=== PATIENT | male | born 1980 | race Caucasian/White ===

== ENCOUNTER → 2024-09-12 14:31 | Outpatient (BNVA) | payer OTHER, SELFPAY | PROVIDERS: PCP Family Medicine; Visit Provider Physician Assistant | DX: M54.12 Radiculopathy, cervical region (principal); R20.0 Anesthesia of skin | CPT/HCPCS: 99202 ==

== ENCOUNTER → 2024-09-12 14:31 | Outpatient (AMB) | payer OTHER, SELFPAY ==
[2024-09-12 14:45] VITALS: BMI 35.5
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
--- OUTSIDE RECORDS SUMMARY | 2024-09-12 16:46 | XMS_ITS | Encounter Summary ---
Author Name [facility] [place] [facility] [place] [facility] [place] Address [address] [place] [address] Care Team Providers Care Manager Change Name Role Phone ELLIE BRADSHAW Primary Care Provider Unavailabl e Insurance Providers: All historical and current Section Date Range: From patient's date of to the date document was created. This section includes the names of all active insurance providers for the patient. Insurance Provider Type of Coverage Plan Name Start of Policy Coverage End of Policy Coverage Group Number Member ID Insurance Provider's Telephone Number Policy Ewing's Name Patient's Relationship to Policy Ewing [facility] (MEDICAID) MEDICAID MEDIC AID Dec 30, 2012 MEDICAI D [id number] HARSHIL AL RISTOP PATIENT [facility] MEDICAID MEDICAID [place] Dec 30, 2012 MEDICAI D [id number] HARSH[place] PATIENT Selected Encounter This section includes the information on record at [place] for the Encounter. Date/Time Encounter Type Encounter Description Reason Provider Source Sep 11, 2024 01:42 PM CASE MANAGEMENT TELEPHONE POLYTRAUMA/TBI ICD-10-CM Z87.820 Personal history of traumatic brain injury SAM RENDON [place] Encounter Template Text not used by [place] Assessments - Encounter Diagnoses This section includes the primary and secondary diagnoses documented for the Encounter. Date/Time Primary/Secondary Diagnosis Diagnosis Name Provider Source Sep 11, 2024 01:42 PM PRIMARY Personal history of traumatic brain injury SAM RENDON [facility] Sep 11, 2024 01:42 PM SECONDARY Other specified counseling [facility] Plan of Treatment: Future Appointments (+ 6 months) and Future Tests (+/- 45 days) The Plan of Treatment section includes future care activities for the patient from all [place] [facility]. This section includes future appointments and future orders which are active, pending or scheduled. Future Appointments This section includes appointments that were scheduled to occur 6 months from the date of the Encounter, up to a maximum of 20 appointments. The data comes from all [facility]. Appointment Date/Time Appointment Type Appointme nt Facility Name Sep 12, 2024 02:30 PM [facility] Sep 13, 2024 10:00 AM AMBULATORY - REHAB MEDICIN [facility] [place] September 15, 2024 10:30 AM [facility] September 18, 2024 11:00 AM AMBULATORY - [facility] September 19, 2024 02:00 [facility] September 22, 2024 09:00 AM AMBULAT[facility] - [facility] September 25, 2024 09:00 AM AMBULATORY - REHAB [facility]ICIN [facility] October 02, 2024 09:00 AM AMBULATORY - [facility]IN [facility] October 10, 2024 10:00 AM AMBULATORY - [facility] October 11, 2024 01:00 PM AMBULATORY - PSYCHIATRY [facility] October 13, 2024 08:30 AM [facility]UL[facility] Oct 27, 2024 10:00 AM AMBULAT[facility] Active, Pending, and Scheduled Orders This section includes a listing of several types of active, pending, and scheduled orders, including clinic medications orders, diagnostic test orders, procedure orders and consult orders; where the start date of the order is 45 days before the date of the Encounter or 45 days after the date of theEncounter. The data comes from all [facility]. Test Date/Time Test Type Test Details Facility Name Jul 30, 2024 07:39 PM Consult Order TBI OPTOME TRY OUTPT Cons Stress Analyst's Choice [facility] [place] [facility] Aug 10, 2024 09:42 AM Consult Order COMMUNITY CARE-NEUROSURGERY Cons Stress Analyst's Choice [place] Aug 18, 2024 11:56 AM Consult Order COMMUNITY CARE-DENTAL GENERAL Cons Stress Analyst's Choice [place] [facility] Aug 18, 2024 11:56 AM Consult Order COMMUNITY CARE-DENTAL GENERAL Cons Stress Analyst's Choice [place] [facility] [place] [facility] Aug 18, 2024 11:56 AM Consult Order COMMUNITY CARE-DENTAL SPECIALTY Cons Stress Analyst's Choice [place] [facility] Aug 25, 2024 12:12 PM Consult Order TBI SPEECH OUTPT Cons Stress Analyst's Choice [place] [facility] [place] [facility] Aug 25, 2024 12:26 PM Consult Order COMMUNITY CARE-PAIN MANAGEMENT Cons Stress Analyst's Choice [place] [facility] Sep 05, 2024 04:22 PM Consult Order TBI OPTOME TRY OUTPT Cons Stress Analyst's Choice [place] [facility] Sep 12, 2024 09:54 AM Consult Order BIOFEEDBAC K FOR PAIN/[facility] (OUTPT) Cons [facility] Social History: Smoking Status (Most current) and Tobacco Use (All prior to encounter date) This section includes the most current, and the historical, smoking and tobacco- related health factors from the [place] facility where the Encounter took place. Current Smoking Status This section includes the most current smoking, or tobacco-related health factor, from the [place] facility where the Encounter took place. Date/Time Current Smoking Status Comment [facility] Jan 27, 2013 01:11 PM CURRENT SMOKER [place] [facility] Tobacco Use History This section includes a history of the smoking, or tobacco-related health factors, that were collected on or before the date of the Encounter. The data comes from the [place] facility where the Encounter took place. Date/Time Smoking Status/Tobac co Use Comment Facility Jan 27, 2013 01:11 PM V1-PT DECLINES REF TO TOBACCO CESS [facility] Jan 27, 2013 01:11 PM V1-PT DECLINES TOBACCO CESSATION [facility] Jan 27, 2013 01:11 PM V1-PT NOT INTERESTED IN QUIT TOBACCO USE [facility] Aug 24, 2011 03:03 PM V1-PT DECLINES REF TO TOBACCO CESS [facility] Aug 24, 2011 03:03 PM V1-PT DECLINES TOBACCO CESSATION MEDS [facility] Aug 24, 2011 03:03 PM V1-PT NOT INTERESTED IN QUIT TOBACCO USE [facility] May 19, 2011 02:05 PM CURRENT SMOKER pack a week [facility] May 05, 2011 10:41 AM CURRENT SMOKER once in a while [facility] Advance Directives: All historical and current Section Date Range: From patient's date of to the date document was created. This section includes ALL of a patient's completed or amended [place] Advance and Rescinded Directives. The entries below indicate that a directive exists for the patient, but an actual copy is not included with this document. The data comes from all [place] facilities. Date Advance Directives Provider Source Mar 09, 2013 ADVANCE DIRECTIVE DISCUSSION BETTE JACKMAN [facility] Encounter Notes: All associated encounter notes This section contains the clinical notes associated to the Encounter. Date/Time Encounter Note(s) Provider Source Sep 11, 2024 01:42 PM TBI NOTE: LOCAL TITLE: TBI/POLYTRAUMA SOCIAL WORK NOTE STANDARD TITLE: TBI NOTE DATE OF NOTE: SEP 11, 2024@13:42 ENTRY DATE: SEP 11, 2024@13:42:54 AUTHOR: SAM RENDONIGNER: URGENCY: STATUS: COMPLETED Communicating with in regards to community care neurosurgery consult. 's PCP placed a CC consult on 08/10/24 to [facility] Neurosurgery. There was some delay in getting scheduled due to [facility] requiring an MRI, which was provided (per consult). Beaver felt the delay to getting into [facility] for this appointment was taking too long, as he is living with daily pain, and reached out to [facility] to get a Neurosurgery appointment with them in the meantime (and for a second opinion ). was given an appointment, pending VA referral/authorization for 09/12/24 with [facility]. It was explained to this date that here is no Community Care Consult referral in for [facility], only [facility]. The [place] would not be able to cover an appointment for tomorrow, scheduled by independent of [place]. Beaver did speak to [facility] and they offered to book him for 09/25/24 for a neurosurgery consult. Beaver was encouraged to take this appointment and if he needed a second opinion, he could be referred to [facility]. was not happy about the [facility] not being able to cover his self-made appointment with [facility] tomorrow, but he did book the appointment with [facility]. also requesting referral for second opinion, and this will be placed when able to [facility]. /audrey/ KARI HIGUERA STAFF FLAP CURER Signed: 09/11/2024 15:01 SAM RENDON [place] [facility]
--- OUTSIDE RECORDS SUMMARY | 2024-09-12 16:46 | XMS_ITS | Encounter Summary ---
Author Name [facility] [place] [facility] [place] Address [address] [place] [address] Care Team Providers Care Water Conservation Specialist Name Role Phone ELLIE BRADSHAW Primary Care [...] Ewing's Name Patient's Relationship to Policy Ewing [facility] (MEDICAID) MEDICAID MEDIC AID Dec 30, 2012 MEDICAI D [id number] HARSHIL AL RISTOP PATIENT [facility] [place] [facility] ([place]) Dec 30, 2012 MEDICAI D [id number] HARSHIL AL RISTOP PATIENT Selected Encounter This section includes the information on record at [place] for the Encounter. Date/Time Encounter Type Encounter Description Reason Provider Source Aug 10, 2024 09:30 AM OFFICE O/P EST LOW 20 MIN PRIMARY CARE/MEDICINE ICD-10-CM M54.12 Radiculopathy, cervical region ISABEL BRADSHAW Encounter Template Text not used by [facility] Assessments - Encounter Diagnoses This section includes the primary and secondary diagnoses documented for the Encounter. Date/Time Primary/Secondary Diagnosis Diagnosis Name Provider Source Aug 10, 2024 09:58 AM PRIMARY Radiculopathy, cervical region ELLIE BRADSHAW Plan of Treatment: Future Appointments (+ 6 months) and Future Tests (+/- 45 days) The Plan of Treatment section includes future care activities for the patient from [facility] [place] [facility]. This section includes future appointments and future orders which are active, pending or scheduled. Future Appointments This section includes appointments that were scheduled to occur 6 months from the date of the Encounter, up to a maximum of 20 appointments. The data comes from all [facility] facilities. Appointment Date/Time Appointment Type Appointme nt Facility Name Aug 15, 2024 10:30 AM AMBULAT[facility] Aug 16, 2024 09:00 AM AMBULATORY - [facility]IC[facility] Aug 22, 2024 10:00 AM AMBULATORY [facility] MEDICINE [facility] Aug 25, 2024 11:00 AM AMBULATORY - REHAB MEDICIN E [facility] Sep 05, 2024 02:00 PM AMBULATORY - REHAB MEDICIN E [facility] Sep 06, 2024 11:00 AM AMBULATORY - [facility]HAB MEDICIN E [facility] Sep 12, 2024 02:30 PM AMBULATORY [facility]ICINE [facility] Sep 13, 2024 10:00 AM AMBULATORY - REH[place] MEDICIN E [place] September 15, 2024 10:30 AM AMBULATORY - NONE [facility] September 18, 2024 11:00 AM AMBULATORY - REHAB MEDICIN E [place] September 19, 2024 02:00 PM AMBULATORY [facility]INE [facility] September 22, 2024 09:00 AM AMBULATORY - REHAB MEDICIN E [place] September 25, 2024 09:00 AM AMBULATORY - REHAB MEDICIN E [place] October 02, 2024 09:00 AM AMBULATORY - REHAB MEDICIN [facility] October 10, 2024 10:00 AM AMBULATORY - REHAB MEDICIN [facility] October 11, 2024 01:00 PM AMBULATORY - PSYCHIATRY [facility] October 13, 2024 08:30 AM AMBULATORY - [facility]HAB MEDICIN E [facility] Oct 27, 2024 10:00 AM AMBULATORY - REHAB MEDICIN E [facility] Active, Pending, and Scheduled Orders This section includes a listing of several types of active, pending, and scheduled orders, including clinic medications orders, diagnostic test orders, procedure orders and consult orders; where the start date of the order is 45 days before the date of the Encounter or 45 days after the date of theEncounter. The data comes from all [place] treatment facilities. Test Date/Time Test Type Test Details Facility Name Jul 30, 2024 07:39 PM Consult Order TBI OPTOME TRY OUTPT Cons Housekeeping/Laundry Supervisor's Choice [place] [facility] Aug 10, 2024 09:42 AM Consult Order COMMUNITY CARE-NEUROSURGERY Cons Housekeeping/Laundry Supervisor's Choice [place] Aug 18, 2024 11:56 AM Consult Order COMMUNITY CARE-DENTAL GENERAL Cons Housekeeping/Laundry Supervisor's Choice [place] [facility] Aug 18, 2024 11:56 AM Consult Order COMMUNITY CARE-DENTAL GENERAL Cons Housekeeping/Laundry Supervisor's Choice [place] [facility] Aug 18, 2024 11:56 AM Consult Order COMMUNITY CARE-DENTAL SPECIALTY Cons Housekeeping/Laundry Supervisor's Choice [place] [facility] Aug 25, 2024 12:12 PM Consult Order TBI SPEECH OUTPT Cons Housekeeping/Laundry Supervisor's Choice [place] [facility] Aug 25, 2024 12:26 PM Consult Order COMMUNITY CARE-PAIN MANAGEMENT Cons Housekeeping/Laundry Supervisor's Choice [place] [facility] Sep 05, 2024 04:22 PM Consult Order TBI OPTOME TRY OUTPT Cons Housekeeping/Laundry Supervisor's Choice [place] [facility] Sep 12, 2024 09:54 AM Consult Order BIOFEEDBAC K FOR PAIN/[facility] (OUTPT) Cons Housekeeping/Laundry Supervisor's Choice [place] [facility] Lab Results: +/- 30 days of the encounter This section includes the Chemistry and Hematology Lab Results on record with [place] for the patient. Radiology Reports and Pathology Reports are provided separately, in subsequent sections. Lab Results This section contains the Chemistry/Hematology Results that were resulted 30 days before or 30 daysafter the date of the Encounter. Date/Time Source Result Type Result - Unit Interpretation Reference Range Specimen Type Comment Aug 02, 2024 10:15 AM [place] CALCIUM SERUM Specimen Type: SERUM No comment entered. Ordering Provider: ELLIE BRADSHAW Report Released Date/Time: Jun 26, 2024 10:28 AM Reporting Lab: [facility] [address] Performing Lab: [facility]ITALRMI[facility]ITALTRN [facility]PITALUSETS [address] [address] CALCIUM 9.5 mg/dL 8.5-10.2 Aug 02, 2024 10:15 AM [place] MICROALBUMIN CREATININE RATIO PANEL URINE Specimen Type: URINE No comment entered. Ordering Provider: ELLIE BRADSHAW Report Released Date/Time: Jun 26, 2024 10:28 AM Reporting Lab: [facility] [address] [address] Performing Lab: [facility] [address] [address] MICROALBUMIN/CREATININE RATIO 12.8 mg/g 0-29.9 MICROALBUMIN,QUANTITATIVE 0.5 mg/dL RR U NAVAIL CREATININE URINE 39.09 mg/dL Aug 02, 2024 10:15 AM [place] LIVER FUNCTION SERUM Specimen Type: SERUM No comment entered. Ordering Provider: ELLIE BRADSHAW Report Released Date/Time: Jun 26, 2024 10:28 AM Reporting Lab: [facility] [address] [address] Performing Lab: [facility] [address] [address] PROTEIN,TOTAL 7.8 g/dL 6.0-8.3 ALBUMIN 4.3 g/dL 3.5-5.0 ALKALINE PHOSPHATASE 91 U/L 40-150 AST 22 U/L 5-34 ALT 32 U/L BILIRUBIN, TOTAL 0.3 mg/dL 0.2-1.2 Aug 02, 2024 10:15 AM [place] LIPID PANEL FASTING SERUM Specimen Ty pe: SERUM No comment entered. Ordering Provider: ELLIE BRADSHAW Report Released Date/Time: Jun 26, 2024 10:28 AM Reporting Lab: [facility]ITALTRN [facility]USE[address] [address] Performing Lab: [facility] [address] [address] CHOLESTEROL 218 mg/dL H TRIGLYCERIDE 430 mg/dL H 0-150 LDL calculated Reflex to dLDL mg/dL 0-12 9 CHOL/HDL 6.4 HDL CHOLESTEROL 34 mg/dL L 40-60 LDL DIRECT 138 mg/dL H Aug 02, 2024 10:15 AM [place] URINALYSIS URINE S pecimen Type: URINE Comment: If Glucose = >500 and Ketones are positive, please alert the Physician. Ordering Provider: ELLIE BRADSHAW Report Released Date/Time: Jun 26, 2024 10:28 AM Reporting Lab: [address] [address] Performing Lab: [address] [address] UA COLOR Colorless Yellow UA APPEARANCE Clear Clear UA GLUCOSE Normal mg/dL Negative UA KETONES NEGATIVE mg/dL Negative UA BLOOD NEGATIVE mg/dL Negative UA PROTEIN NEGATIVE mg/dL Negative UA NITRITE NEGATIVE mg/dL Negative UA BILIRUBIN NEGATIVE mg/dL Negative UA SPECIFIC GRAVITY 1.009 L 1.016-1.022 UA pH 6.5 5.0-9.0 UA UROBILINOGEN Normal mg/dL <2.0 UA LEUKOCYTE NEGATIVE Negative Aug 02, 2024 10:15 AM [place] BASIC METABOLIC PANEL (fasting) SERUM Specimen Type: SERUM No comment entered. Ordering Provider: ELLIE BRADSHAW Report Released Date/Time: Jun 26, 2024 10:28 AM Reporting Lab: [address] [address] Performing Lab: [address] [address] UREA NITROGEN 14 mg/dL 7-25 GLUCOSE 98 mg/dL 65-100 SODIUM 137 mmol/L 135-145 POTASSIUM 4.6 mmol/L 3.5-5.0 CHLORIDE 103 mmol/L 100-110 CO2 26 meq/L 20-30 CALCIUM 9.5 mg/dL 8.5-10.2 CREATININE, Serum 0.82 mg/dL 0.50-1.40 eGFR(CKD-EPI 2020) >90 mL/min >60 Aug 02, 2024 10:15 AM [place] URIC ACID SERUM Sp ecimen Type: SERUM No comment entered. Ordering Provider: ELLIE BRADSHAW Report Released Date/Time: Jun 26, 2024 10:28 AM Reporting Lab: [facility]RC[facility]ITALUSE[facility] [address] [address] Performing Lab: [facility]RC[facility]ITALUSE[facility] [address] [address] URIC ACID 6.1 mg/dL 3.5-7.2 Aug 02, 2024 10:15 AM [place] VITAMIN D (25-OH) SERUM Specimen Type: SERUM No comment entered. Ordering Provider: ELLIE BRADSHAW Report Released Date/Time: Jun 26, 2024 10:28 AM Reporting Lab: [facility]ITALUSE[facility] [address] [address] Performing Lab: [facility] [address] [address] VITAMIN D (25-OH) 19 ng/mL L 20-50 Aug 02, 2024 10:15 AM [place] TSH SERUM Sp ecimen Type: SERUM No comment entered. Ordering Provider: ELLIE BRADSHAW Report Released Date/Time: Jun 26, 2024 10:28 AM Reporting Lab: [facility]ITALUSE[facility] [address] [address] Performing Lab: [facility]ITALUSE[address] [address] TSH 1.56 u[IU]/mL 0.35-5.00 Aug 02, 2024 10:15 AM [place] HEMOGLOBIN A1C PANEL BLOOD Specimen T ype: BLOOD Comment: Values obtained from A1C measurements can vary. For atypical A1C assays, a reported value of 7.0 could actually be between 6.72 and 7.28 if measured by a reference method. A reported value of 9.0 could actually be between 8.73 and 9.27. Ref: http://www.ngsp.org/CAPdata.asp Ordering Provider: ELLIE BRADSHAW Report Released Date/Time: Jun 26, 2024 10:28 AM Reporting Lab: [facility] [address] [address] Performing Lab: [address] [address] HEMOGLOBIN A1C 5.3 4.0-5.6 Aug 02, 2024 10:15 AM [place] PSA SERUM Sp ecimen Type: SERUM No comment entered. Ordering Provider: ELLIE BRADSHAW Report Released Date/Time: Jun 26, 2024 10:28 AM Reporting Lab: [facility] [address] [address] Performing Lab: [address] [address] PSA 0.29 ng/mL 0.00-4.00 Aug 02, 2024 10:15 AM [place] CBC AND DIFF (AUTO) BLOOD Specimen Ty pe: BLOOD No comment entered. Ordering Provider: ELLIE BRADSHAW Report Released Date/Time: Jun 26, 2024 10:28 AM Reporting Lab: [facility] [address] [address] Performing Lab: [address] [address] WBC 8.80 10*3/uL 4.50-11.00 RBC 5.88 10*6/uL H 4.23-5.66 HGB 16.3 g/dL 12.8-17 HCT 48.8 39.2-50.4 MCV 83.0 fL 82-99 MCHC 33.4 g/dL 30.8-35.1 PLT 296 10*3/uL 140-360 RDW-CV 13.2 12.0-16.0 MONO, ABS 0.67 10*3/uL 0.30-1.10 MCH 27.7 pg 26.2-32.6 NEUT % 67.5 43.7-75.8 LYMPH % 19.8 14.0-42.3 MONO % 7.6 5.1-13.7 EOS % 4.2 0.4-6.8 BASO % 0.7 0.1-2.0 NEUT, ABS 5.94 10*3/uL 2.20-7.60 LYMPH, ABS 1.74 10*3/uL 1.00-3.20 EOS, ABS 0.37 10*3/uL 0.03-0.44 BASO, ABS 0.06 10*3/uL 0.01-0.13 IMMATURE GRAN % 0.2 0.0-0.7 IMMATURE GRAN, ABS 0.02 10*3/uL 0.00-0.0 6 NRBC % 0.0 0.0-0.0 NRBC, ABS 0.00 10*3/uL 0.00-0.00 Vital Signs: All taken on the encounter date This section contains inpatient and outpatient Vital Signs collected on the date of the Encounter. Date/Time Temperature Pulse Blood Pressure Respiratory Rate SP02 Pain Height Weight Body Mass Index Source Aug 10, 2024 09:38 AM 96.1 66 126/87 20 98 0 71 270 38 [facility] Social History: Smoking Status (Most current) and Tobacco Use (All prior to encounter date) This section includes the most current, and the historical, smoking and tobacco- related health factors from the [place] facility where the Encounter took place. Current Smoking Status This section includes the most current smoking, or tobacco-related health factor, from the [place] facility where the Encounter took place. Date/Time Current Smoking Status Comment Facil ity Jun 26, 2024 10:00 AM VA-TOBACCO USE FORMER CIGARETTES [place] Tobacco Use History This section includes a history of the smoking, or tobacco-related health factors, that were collected on or before the date of the Encounter. The data comes from the [place] facility where the Encounter took place. Date/Time Smoking Status/Tobacco Use Comment F acility Jun 26, 2024 10:00 AM VA-TOBACCO USE FOR DEBRA CIGARETTES [place] May 26, 2022 11:30 AM VA-TOBACCO FORMER USER [place] May 26, 2022 11:30 AM VA-TOBACCO QUIT 5 TO < 15 YRS [place] Apr 29, 2021 11:30 AM VA-TOBACCO FORMER USER [place] Apr 29, 2021 11:30 AM VA-TOBACCO QUIT 1 TO < 5 YRS [place] Apr 09, 2020 09:00 AM VA-TOBACCO FORMER USER [place] Apr 09, 2020 09:00 AM VA-TOBACCO QUIT < 1 YEAR [place] Jan 10, 2020 09:30 AM VA-TOBACCO FORMER USER [place] Jan 10, 2020 09:30 AM VA-TOBACCO QUIT < 1 YEAR [place] Aug 08, 2018 01:45 PM VA-TOBACCO USE > 1 5 LESS THAN 30 YEARS [place] Aug 08, 2018 01:45 PM VA-TOBACCO USE ADVICE [place] Aug 08, 2018 01:45 PM VA-TOBACCO USE PREPARER SAMPLES AND REPAIRS NO [place] Aug 08, 2018 01:45 PM VA-TOBACCO USE MED YES [place] Aug 08, 2018 01:45 PM VA-TOBACCO USE WI 30 MIN OF WAKEUP [place] Aug 08, 2018 01:45 PM VA-TOBACCO USER EVERY DAY [place] Aug 06, 2017 01:54 PM CURRENT SMOKER 4 day [place] Aug 06, 2017 01:54 PM V1-PT NOT INTEREST ED IN QUIT TOBACCO USE [place] Nov 12, 2016 02:08 PM CURRENT SMOKER cutting back his decreasing on his own [place] Nov 12, 2016 02:08 PM V1-PT NOT INTEREST ED IN QUIT TOBACCO USE [place] May 08, 2016 05:15 PM CURRENT SMOKER is cutting back . Interested in tobacco cessation next visit. [place] Jun 04, 2015 10:22 AM QUIT TOBACCO USE 1 -7 YEARS AGO stopped one month ago [place] May 13, 2015 08:27 AM V1-PT DECLINES REF TO TOBACCO CESS PRGM [place] May 13, 2015 08:27 AM V1-PT THINKING ABO UT QUIT TOBACCO USE [place] Advance Directives: All historical and current Section Date Range: From patient's date of to the date document was created. This section includes ALL of a patient's completed or amended [place] Advance and Rescinded Directives. The entries below indicate that a directive exists for the patient, but an actual copy is not included with this document. The data comes from all [place] facilities. Date Advance Directives Provider Source Mar 09, 2013 ADVANCE DIRECTIVE DISCUSSION BETTE JACKMAN [place] [facility] Radiology Reports: +/- 30 days of the encounter Radiology Reports For cases when an order for radiology services may have been completed prior to the date of the Encounter, the report list includes the Radiology Reports that were completed up to 30 days before dateof the Encounter. For cases when an order for radiology services may have been completed after the date of the Encounter, the report list also includes the Radiology Reports that were completed up to30 days after date of the Encounter. The data comes from all [place] treatment facilities. Date/Time Radiology Report Provider Source Aug 02, 2024 08:00 AM OUTSIDE MRI CERVIC AL SPINE WO CONTRAST: [place] AL [id number] -[id number] M Exm Date: AUG 02, 2024@08:00 Req Phys: ELLIE BRADSHAW Loc: SPR PACT 3 PA WH (Req'g Loc) Img Loc: OUTSIDE GENERAL RADIOLOGY Service: Unknown (Case [id number] COMPLETE) OUTSIDE MRI CERVICAL SPINE WO CON(RAD Detailed) CPT:51464 Reason for Study: mro c spine Clinical History: paresthesias and motor weakness left U-Ext Report Status: Electronically Filed Date Reported: AUG 02, 2024 Report: THIS EXAM WAS PERFORMED AND INTERPRETED AT AN OUTSIDE HOSPITAL Impression: THIS EXAM WAS PERFORMED AND INTERPRETED AT AN OUTSIDE HOSPITAL Primary Diagnostic Code: VERIFIED BY: / *ELECTRONICALLY FILED* [facility] Encounter Notes: All associated encounter notes This section contains the clinical notes associated to the Encounter. Date/Time Encounter Note(s) Provider Source Aug 10, 2024 09:40 AM PREVENTIVE MEDICIN E NURSING NOTE: LOCAL TITLE: CLINICAL REMINDERS/NURSING STANDARD TITLE: PREVENTIVE MEDICINE NURSING NOTE DATE OF NOTE: AUG 10, 2024@09:40 ENTRY DATE: AUG 10, 2024@09:40:45 AUTHOR: DAVID FARIA COSIGNER: URGENCY: STATUS: COMPLETED Home Telehealth (CCHT) Referral: Patient declines participation in CCHT Program at this time. Influenza Immunization: Deferral / Refusal The patient declines to receive the recommended dose of seasonal influenza vaccine. Immunization: INFLUENZA, UNSPECIFIED FORMULATION Refusal Reason: PATIENT DECISION Patient refuses all immunization(s) in the FLU group Date Documented: 08/10/24 09:40 Td/Tdap Immunization: The patient declines to receive the recommended dose of Td/Tdap vaccine. Immunization: TD(ADULT) UNSPECIFIED FORMULATION Refusal Reason: PATIENT DECISION Patient refuses all immunization(s) in the Td group Date Documented: 08/10/24 09:41 RHS Screen: RHS Screen Session Format: Face to Face Environmental Check Screening was not completed at this time due to: Another adult present /es/ DAVID FARIA LPN LPN Signed: 08/10/2024 09:41 DAVID FARIA [place] Aug 10, 2024 09:36 AM PHYSICIAN ASSISTAN T NOTE: LOCAL TITLE: PA NOTE STANDARD TITLE: PHYSICIAN CHILD AND YOUTH PROGRAM ASSISTANT NOTE DATE OF NOTE: AUG 10, 2024@09:36 ENTRY DATE: AUG 10, 2024@09:36:41 AUTHOR: BRADSHAW,ELLIE EXP COSIGNER: URGENCY: STATUS: COMPLETED S - here to review mri c-spine done rayus aug 08 O - RADS: reviewed w/ pt A/P - Multi-Level Discopathy and Spondylosis - CON: Neuro Surg RTC AUG 09 - labs before Medication Reconciliation: Outpatient: Has the patient been taking medications as documented in the EMLR? YES: The patient has been taking medications as documented in the EMLR. Essential Medication List for Review used to complete this medication reconciliation. INCLUDED IN THIS LIST: Alphabetical list of active outpatient prescriptions dispensed from this [place] (local) and dispensed from another [place] or DoD facility (remote) as well as inpatient orders (local, pending and active), local clinic medications, locally documented non-VA medications, and local prescriptions that have or been discontinued in the past 90 days. - All changes in medications, including all non-VA/Herbal/OTC medications were entered into CPRS. Changes: nt - If there were any medications the patient should no longer take, they were discontinued. - The patient/caregiver was instructed to update this list, discard old lists, and take this list to the next appointment, whether with a VA or non-VA provider. /audrey/ ELLIE BRADSHAW PA-C STAFF PHYSICIAN CHILD AND YOUTH PROGRAM ASSISTANT Signed: 08/10/2024 09:58 ELLIE BRADSHAW
--- OUTSIDE RECORDS SUMMARY | 2024-09-12 16:46 | XMS_ITS | Encounter Summary ---
Author Name [facility] [place] Organization [facility] [place] [place] Address [address] [place] [address] Care Team Providers Care Roving Or Yarn Color Checker Name Role Phone ELLIE BRADSHAW Primary Care [...] Ewing's Name Patient's Relationship to Policy Ewing [facility] (MEDICAID) MEDICAID MEDIC AID Dec 30, 2012 MEDICAI D [id number] HARSHIL AL RISTOP PATIENT [facility] MEDICAID MEDICAID [place] ([place]) Dec 30, 2012 MEDICAI D [id number] HARSHIL AL RISTOP PATIENT Selected Encounter This section includes the information on record at [place] for the Encounter. Date/Time Encounter Type Encounter Description Reason Provider Source Aug 16, 2024 09:00 AM OFFICE O/P EST HI 40 MIN PM&RS PHYSICIAN ICD-10-CM M79.18 Myalgia, other site HARISH ALFONSO [facility] Encounter Template Text not used by [place] Assessments - Encounter Diagnoses This section includes the primary and secondary diagnoses documented for the Encounter. Date/Time Primary/Secondary Diagnosis Diagnosis Name Provider Source Aug 16, 2024 10:27 AM PRIMARY Myalgia, other site HARISH ALFONSO [place] [facility] [facility] Aug 16, 2024 10:27 AM SECONDARY Cervicalgia HARISH ALFONSO [facility] [facility] Aug 16, 2024 10:27 AM SECONDARY Headache, unspecified HARISH ALFONSO [facility] [facility] Plan of Treatment: Future Appointments (+ 6 months) and Future Tests (+/- 45 days) The Plan of Treatment section includes future care activities for the patient from all [place] [facility]. This section includes future appointments and future orders which are active, pending or scheduled. Future Appointments This section includes appointments that were scheduled to occur 6 months from the date of the Encounter, up to a maximum of 20 appointments. The data comes from all [place] treatment facilities. Appointment Date/Time Appointment Type Appointme nt Facility Name Aug 22, 2024 10:00 AM AMBULATORY - MEDICINE [facility] [place] [facility] Aug 25, 2024 11:00 AM AMBULATORY - REHAB MEDICIN E [facility] [place] [facility] Sep 05, 2024 02:00 PM AMBULATORY - REHAB MEDICIN E [facility] [place] [facility] Sep 06, 2024 11:00 AM AMBULATORY - REHAB MEDICIN E [facility] [place] [facility] Sep 12, 2024 02:30 PM AMBULATORY - MEDICINE [facility] [place] [facility] Sep 13, 2024 10:00 AM AMBULATORY - REHAB MEDICIN E [place] September 15, 2024 10:30 AM AMBULATORY - NONE [facility] [place] [facility] September 18, 2024 11:00 AM AMBULATORY - REHAB MEDICIN E [place] September 19, 2024 02:00 PM AMBULATORY - MEDICINE [facility] [place] [facility] September 22, 2024 09:00 AM AMBULATORY - REHAB MEDICIN E [place] September 25, 2024 09:00 AM AMBULATORY - REHAB MEDICIN E [place] October 02, 2024 09:00 AM AMBULATORY - REHAB MEDICIN E [place] October 10, 2024 10:00 AM AMBULATORY - REHAB MEDICIN E [place] October 11, 2024 01:00 PM AMBULATORY - PSYCHIATRY [facility] October 13, 2024 08:30 AM AMBULATORY - REHAB MEDICIN E [facility] [place] [facility] Oct 27, 2024 10:00 AM AMBULATORY - REHAB MEDICIN E [facility] [place] [facility] Active, Pending, and Scheduled Orders This section includes a listing of several types of active, pending, and scheduled orders, including clinic medications orders, diagnostic test orders, procedure orders and consult orders; where the start date of the order is 45 days before the date of the Encounter or 45 days after the date of theEncounter. The data comes from all [place] treatment facilities. Test Date/Time Test Type Test Details Facility Name Jul 30, 2024 07:39 PM Consult Order TBI OPTOME TRY OUTPT Cons Laborer [facility] [place] [facility] [place] [facility] Aug 10, 2024 09:42 AM Consult Order COMMUNITY CARE-NEUROSURGERY Cons Laborer [facility] [place] Aug 18, 2024 11:56 AM Consult Order COMMUNITY CARE-DENTAL GENERAL Cons Laborer [facility] [facility] [place] [facility] [place] [facility] Aug 18, 2024 11:56 AM Consult Order COMMUNITY CARE-DENTAL GENERAL Cons Laborer [facility] [place] [facility] Aug 18, 2024 11:56 AM Consult Order COMMUNITY CARE-DENTAL SPECIALTY Cons Laborer [facility] [facility] [place] [facility] [place] [facility] Aug 25, 2024 12:12 PM Consult Order TBI SPEECH OUTPT Cons Laborer [facility] [facility] [facility] Aug 25, 2024 12:26 PM Consult Order COMMUNITY CARE-PAIN MANAGEMENT Cons Laborer [facility] [facility] Sep 05, 2024 04:22 PM Consult Order TBI OPTOME TRY OUTPT Cons Laborer [facility] [facility] Sep 12, 2024 09:54 AM Consult Order BIOFEEDBAC K FOR PAIN/NHM (OUTPT) Cons Laborer [employer] [facility] [facility] [place] [facility] [place] [facility] Lab Results: +/- 30 days of the encounter This section includes the Chemistry and Hematology Lab Results on record with [place] for the patient. Radiology Reports and Pathology Reports are provided separately, in subsequent sections. Lab Results This section contains the Chemistry/Hematology Results that were resulted 30 days before or 30 daysafter the date of the Encounter. Date/Time Source Result Type Result - Unit Interpretation Reference Range Specimen Type Comment Aug 02, 2024 10:15 AM [place] CALCIUM SERUM Specimen Type: SERUM No comment entered. Ordering Provider: ELLIE BRADSHAW Report Released Date/Time: Jun 26, 2024 10:28 AM Reporting Lab: [facility]TRN [facility] [address] [address] Performing Lab: [facility]ITALRMOBILE INFIRMARY [facility]ICAL CENTERN [facility]DRENUSEH[facility] [address] [address] CALCIUM 9.5 mg/dL 8.5-10.2 Aug 02, 2024 10:15 AM [place] MICROALBUMIN CREATININE RATIO PANEL URINE Specimen Type: URINE No comment entered. Ordering Provider: ELLIE BRADSHAW Report Released Date/Time: Jun 26, 2024 10:28 AM Reporting Lab: [facility]ITALRMOBILE INFIRMARY MEDICAL CENTERN [facility]ILDRENUSEH[facility] [address] [address] Performing Lab: [facility] [address] [address] MICROALBUMIN/CREATININE RATIO 12.8 mg/g 0-29.9 MICROALBUMIN,QUANTITATIVE 0.5 mg/dL RR U NAVAIL CREATININE URINE 39.09 mg/dL Aug 02, 2024 10:15 AM [place] LIPID PANEL FASTING SERUM Specimen Ty pe: SERUM No comment entered. Ordering Provider: ELLIE BRADSHAW Report Released Date/Time: Jun 26, 2024 10:28 AM Reporting Lab: [place] CNTRMARY [facility]ENTERTRN [facility]ILDRENUSETS [facility] [address] [address] Performing Lab: [place] CN[facility]L TRN [facility]ILDRENUSETS [facility] [address] [address] CHOLESTEROL 218 mg/dL H TRIGLYCERIDE 430 mg/dL H 0-150 LDL calculated Reflex to dLDL mg/dL 0-12 9 CHOL/HDL 6.4 HDL CHOLESTEROL 34 mg/dL L 40-60 LDL DIRECT 138 mg/dL H Aug 02, 2024 10:15 AM [place] LIVER FUNCTION SERUM Specimen Type: SERUM No comment entered. Ordering Provider: ELLIE BRADSHAW Report Released Date/Time: Jun 26, 2024 10:28 AM Reporting Lab: [facility]ITALRMARY [facility]ENTERTRN [facility]ILDRENUSE[address] [address] Performing Lab: [place] CNTRMARY [facility] CENTERTR[address] [address] PROTEIN,TOTAL 7.8 g/dL 6.0-8.3 ALBUMIN 4.3 g/dL 3.5-5.0 ALKALINE PHOSPHATASE 91 U/L 40-150 AST 22 U/L 5-34 ALT 32 U/L BILIRUBIN, TOTAL 0.3 mg/dL 0.2-1.2 Aug 02, 2024 10:15 AM [place] URINALYSIS URINE S pecimen Type: URINE Comment: If Glucose = >500 and Ketones are positive, please alert the Physician. Ordering Provider: ELLIE BRADSHAW Report Released Date/Time: Jun 26, 2024 10:28 AM Reporting Lab: [address] [address] Performing Lab: [address] [address] UA COLOR Colorless Yellow UA APPEARANCE Clear Clear UA GLUCOSE Normal mg/dL Negative UA KETONES NEGATIVE mg/dL Negative UA BLOOD NEGATIVE mg/dL Negative UA PROTEIN NEGATIVE mg/dL Negative UA NITRITE NEGATIVE mg/dL Negative UA BILIRUBIN NEGATIVE mg/dL Negative UA SPECIFIC GRAVITY 1.009 L 1.016-1.022 UA pH 6.5 5.0-9.0 UA UROBILINOGEN Normal mg/dL <2.0 UA LEUKOCYTE NEGATIVE Negative Aug 02, 2024 10:15 AM [place] BASIC METABOLIC PANEL (fasting) SERUM Specimen Type: SERUM No comment entered. Ordering Provider: ELLIE BRADSHAW Report Released Date/Time: Jun 26, 2024 10:28 AM Reporting Lab: [address] [address] Performing Lab: [address] [address] UREA NITROGEN 14 mg/dL 7-25 GLUCOSE 98 mg/dL 65-100 SODIUM 137 mmol/L 135-145 POTASSIUM 4.6 mmol/L 3.5-5.0 CHLORIDE 103 mmol/L 100-110 CO2 26 meq/L 20-30 CALCIUM 9.5 mg/dL 8.5-10.2 CREATININE, Serum 0.82 mg/dL 0.50-1.40 eGFR(CKD-EPI 2020) >90 mL/min >60 Aug 02, 2024 10:15 AM [place] URIC ACID SERUM Sp ecimen Type: SERUM No comment entered. Ordering Provider: ELLIE BRADSHAW Report Released Date/Time: Jun 26, 2024 10:28 AM Reporting Lab: [facility]ITALR WSTRN [facility] CHILDRENUSEHEN[facility] [address] [address] Performing Lab: [facility]OSPITALRMARY [facility]ENTERTRN [facility]ILDRENUSE[address] [address] URIC ACID 6.1 mg/dL 3.5-7.2 Aug 02, 2024 10:15 AM [place] VITAMIN D (25-OH) SERUM Specimen Type: SERUM No comment entered. Ordering Provider: ELLIE BRADSHAW Report Released Date/Time: Jun 26, 2024 10:28 AM Reporting Lab: [facility]ITALRMARY [facility]ENTERTRN [facility]ILDRENUSE[address] [address] Performing Lab: [facility] CHILDRENUSE[address] [address] VITAMIN D (25-OH) 19 ng/mL L 20-50 Aug 02, 2024 10:15 AM [place] HEMOGLOBIN A1C PANEL BLOOD Specimen T ype: [...] Jun 26, 2024 10:28 AM Reporting Lab: [facility]ITALRMARY [facility]ENTERTRN [place] [address] [address] Performing Lab: [facility]OSPITALRMOBILE INFIRMARY MEDICAL CENTERN [facility] CHILDRENUSE[address] [address] HEMOGLOBIN A1C 5.3 4.0-5.6 Aug 02, 2024 10:15 AM [place] TSH SERUM Sp ecimen Type: SERUM No comment entered. Ordering Provider: ELLIE BRADSHAW Report Released Date/Time: Jun 26, 2024 10:28 AM Reporting Lab: [facility]PITALRMARY [facility] CENTERTRN [facility]ILDRENUSE[address] [address] Performing Lab: [facility] [address] [address] TSH 1.56 u[IU]/mL 0.35-5.00 Aug 02, 2024 10:15 AM [place] PSA SERUM Sp ecimen Type: SERUM No comment entered. Ordering Provider: ELLIE BRADSHAW Report Released Date/Time: Jun 26, 2024 10:28 AM Reporting Lab: [facility] [address] [address] Performing Lab: [facility] [address] [address] PSA 0.29 ng/mL 0.00-4.00 Aug 02, 2024 10:15 AM [place] CBC AND DIFF (AUTO) BLOOD Specimen Ty pe: BLOOD No comment entered. Ordering Provider: ELLIE BRADSHAW Report Released Date/Time: Jun 26, 2024 10:28 AM Reporting Lab: [facility] [address] [address] Performing Lab: [facility] [address] [address] WBC 8.80 10*3/uL 4.50-11.00 RBC 5.88 10*6/uL [...] Height Weight Body Mass Index Source Aug 16, 2024 08:38 AM 98.3 78 142/87 16 97 8 [facility] Social History: Smoking Status (Most current) and Tobacco Use (All prior to encounter date) This section includes the most current, and the historical, smoking and tobacco- related health factors from the [place] facility where the Encounter took place. Current Smoking Status This section includes the most current smoking, or tobacco-related health factor, from the [place] facility where the Encounter took place. Date/Time Current Smoking Status Comment [facility] it Jan 27, 2013 01:11 PM [facility] Tobacco Use History This section includes a history of the smoking, or tobacco-related health factors, that were collected on or before the date of the Encounter. The data comes from the [place] facility where the Encounter took place. Date/Time Smoking Status/Tobac co Use Comment Facility Jan 27, 2013 01:11 PM V1-PT DECLINES REF TO TOBACCO CESS [facility] Jan 27, 2013 01:11 PM V1-PT DECLINES TOBACCO CESSATION MEDS [facility]RM[facility]TRN [facility] Jan 27, 2013 01:11 PM V1-PT NOT INTERESTED IN QUIT TOBACCO USE [facility] Aug 24, 2011 03:03 PM V1-PT DECLINES REF [facility]BACCO [facility] W[facility]ENUSEH[facility] Aug 24, 2011 03:03 PM V1-PT DECLINES TOBACCO CESSATION [facility] Aug 24, 2011 03:03 PM V1-PT NOT INTERESTED IN QUIT TOBACCO USE [facility] May 19, 2011 02:05 PM CURRENT SMOKER pack a week [facility] May 05, 2011 10:41 AM CURRENT SMOKER once in a while [facility] Advance Directives: All historical and current Section Date Range: From patient's date of to the date document was created. This section includes ALL of a patient's completed or amended [place] Advance and Rescinded Directives. The entries below indicate that a directive exists for the patient, but an actual copy is not included with this document. The data comes from all [place] facilities. Date Advance Directives Provider Source Mar 09, 2013 ADVANCE DIRECTIVE DISCUSSION AUGUSTINABTETE [facility] Radiology Reports: +/- 30 days of [...] the Encounter. The data comes from all [place] treatment facilities. Date/Time Radiology Report Provider Source Aug 02, 2024 08:00 AM OUTSIDE MRI CERVIC AL SPINE WO CONTRAST: SHIRIN AL [id number] -[id number] M Exm Date: AUG 02, 2024@08:00 Req Phys: ELLIE BRADSHAW Loc: SPR PACT 3 PA WH (Req'g Loc) Img Loc: OUTSIDE GENERAL RADIOLOGY Service: Unknown (Case [id number] COMPLETE) OUTSIDE MRI CERVICAL SPINE WO CON(RAD Detailed) CPT:24392 Reason for Study: mro c spine Clinical History: paresthesias and motor weakness left U-Ext Report Status: Electronically Filed Date Reported: AUG 02, 2024 Report: THIS EXAM WAS PERFORMED AND INTERPRETED AT AN OUTSIDE HOSPITAL Impression: THIS EXAM WAS PERFORMED AND INTERPRETED AT AN OUTSIDE HOSPITAL Primary Diagnostic Code: VERIFIED BY: / *ELECTRONICALLY FILED* [facility] Encounter Notes: All associated encounter notes This section contains the clinical notes associated to the Encounter. Date/Time Encounter Note(s) Provider Source Aug 16, 2024 09:11 AM POLYTRAUMA NOTE: LOCAL TITLE: TBI/POLYTRAUMA PM&R NOTE STANDARD TITLE: POLYTRAUMA NOTE DATE OF NOTE: AUG 16, 2024@09:11 ENTRY DATE: AUG 16, 2024@09:11:52 AUTHOR: HARISH ALFONSO EXP COSIGNER: URGENCY: STATUS: COMPLETED PROCEDURE NOTE PROCEDURE: Trigger point injections. INDICATION: Myofascial neck/upper back pain. HISTORY: Patient presents with ongoing right-sided neck pain, reporting no change in symptoms since last evaluated yesterday. He endorses ongoing numbness over the right lateral arm as well as thumb and index fingers. Symptoms are burning, shooting with radiation down the lateral arm to the elbow. Also reports signficant headache due to pain. Denies any new symptoms. He increased gabapentin to 300mg tid yesterday and hasn't noticed a difference yet. Denies side effects. EXAM: Vitals in chart. Awake, alert, in mild to moderate discomfort. Very anxious. Negative Spurling's b/l. Decent range of motion of the cervical spine with slight restrictions in rotation bilaterally as well as more significant restriction in left sidebending secondary to increased muscle tightness in the neck. Right cervical paraspinal muscles including splenius capitis and the levator scapulae as well as upper trapezius are significantly tight with increased hypertonicity and multiple trigger points throughout the muscles. Trigger points elicit burning sensation with increased numbness in the right upper extremity. Manual muscle testing revealed 4+/5 strength of the right shoulder abduction and elbow flexion secondary to guarding due to pain, otherwise 5/5 strength of bilateral upper extremities. Sensations decreased light touch over the right lateral elbow and thumb, otherwise intact to light touch in the right upper extremity. Positive Tinel's at the wrist on the right. Gait is nonantalgic, not spastic. INFORMED CONSENT: Obtained verbally, and through IMED. TIME OUT NOTE TIME:Aug@08:42 correctly stated: [X]Full name: SHIRIN AL [X]Last of #: [id number] [X]: Feb PROVIDER NAME: Harish Alfonso DO STAFF NAME: Olga Villegas PROCEDURE: Trigger point injections LOCATION: As below noted The areas of trigger points (focal taught mobile bands of muscles that are hyperirritable on palpation) were identified and injected after cleansed with alcohol. A 25G 1.5 needle was used to deliver 1mL of a solution containing 1% lidocaine and 0.5% bupivacaine in 1:1 ratio into the trigger points (locations as below), followed by dry needling locally. The needle was withdrawn and light compression was applied with a 2x2 gauze until bleeding stopped. Band-aid applied. Site 1 MUSCLES INJECTED: levator scapulae SIDE: Right # OF SITES: 1 Site 2: MUSCLES INJECTED: splenius capitis SIDE: Right # OF SITES: 2 Site 3: MUSCLES INJECTED: upper trapezius SIDE: Right # OF SITES: 1 Total lidocaine: 20mg Lot#: [id number] Exp: 12/10 Total bupivacaine: 10mg Lot #: [id number] Exp: 10/2024 No complications. Scant blood loss. The patient tolerated the procedure well without any immediate adverse side effects. Patient was instructed on the use of ice prn, gentle stretching and increased fluid intake to improve hydration. The patient was discharged home with instructions to monitor for any adverse reactions/side effects, and to contact me with any issues. Pre-procedure pain level: 8/10 Post-procedure pain level: improved but still sore ASSESSMENT: acute neck/upper back pain due to muscle sprain/strain, r/o radiculopathy if not improved with today's interventions. Also has right CTS and migraine headaches, with history of mTBIs, anxiety, and other contributing factors. PLAN: - Con't gabapentin 300mg tid. Will increase further pending efficacy. - Trial baclofen 10mg tid prn. Stop cyclobenzaprine. - Trial lidocaine patch (patient has at home) - Con't ice alternating with heat, but use only ice prn the rest of today. - Can consider TENS or theragun (gently) to the areas of muscle tightness. Follow-up in 1 week. MDM: 40 min Medication Reconciliation: Outpatient: Has the patient been taking medications as documented in the EMLR? YES: The patient has been taking medications as documented in the EMLR. Essential Medication List for Review used to complete this medication reconciliation. INCLUDED IN THIS LIST: Alphabetical list of active outpatient prescriptions dispensed from this [facility] (local) and dispensed from another [place] or [facility] facility (remote) as well as inpatient orders (local, pending and active), local clinic medications, locally documented non-VA medications, and local prescriptions that have or been discontinued in the past 90 days. - All changes in medications, including all non-VA/Herbal/OTC medications were entered into CPRS. - If there were any medications the patient should no longer take, they were discontinued. - The patient/caregiver was instructed to update this list, discard old lists, and take this list to the next appointment, whether with a VA or non-VA provider. /audrey/ HARISH ALFONSO DO TECHNICAL INSPECTOR Signed: 08/16/2024 10:29 HARISH ALFONSO CN[facility]L [facility]
--- OUTSIDE RECORDS SUMMARY | 2024-09-12 16:47 | XMS_ITS | Encounter Summary ---
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 continue to improve further with supportive care. 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 He also has clinical left carpal tunnel syndrome. ORDERS: - Start cyclobenzaprine 10mg qHS prn. - Start gabapentin, titrate up to 30mg bid as prescribed. - Routine Optometry evaluation and tx first, then TBI Optometry evaluation to r/o residual issues of mTBIs. - CERTIFIED LEGAL SECRETARY SPECIALIST eval and tx. - Vestibular PT evaluate and tx. - Ordered left wrist splint for CTS. - Minimize social media. - Counseling provided on strategies such as mindfulness and more therapeutic activities. Work on improving relationships with support network. Minimize distractions and large crowds/loud environments at this time until he recovers further. - He has an upcoming appointment with for meds eval on 10/11/24. - [facility]. ADDITIONAL INTERVENTION (later) - Audiology to eval worsened tinnitus. MH exacerbation might be contributing to some degree. - May consider neuropsychological evaluation to rule out residuals of mTBIs if residual symptoms warrant further evaluation. - NCS/EMG of the left arm/wrist to r/o carpal tunnel syndrome and to evaluate severity. - OT for CTS, if needed. Consider cortisone injection after if EMG shows CTS and symptoms do not improve with OT and wrist splint. EDUCATION - Role of provider and purpose of evaluation discussed with vet at the beginning of the appt. - I provided education on the typical mTBI recovery course, as well as my differential diagnosis as above. Bijalt was educated on the typically excellent prognosis of mTBIs. Most symptoms typically resolve within 3 months, but can take up to 6-12 months depending on comorbidities. - Focus on addressing HTN, which can contribute to headaches. - Focus on spending more quality 1:1 time with family/friends in a quiet environment. Stay off social media and the phone - for mental health wellbeing. - Discussed the importance of mental health care in addressing behavioral health conditions which are contributing to Pipo's symptoms. Discussed the mind-body connection and the relationship between mental and physical health. Stressed the importance of treating all physical and mental health co-morbidities concommitently in order to best succeed with symptomatic supportive care. Many neurobehavioral symptoms and other medical conditions affect each other, and symptoms may trigger or exacerbate each other. Bijalt expressed his understanding. - Discussed the importance of sleep in memory consolidation, energy level, concentration, and mental health. No screen time within an hour of sleep. Establish a sleep schedule and work on improving sleep quality. Cyclobenzaprine and gabapentin will hopefully help. FOLLOW-UP: 3mo. has been encouraged to contact our clinic with any questions/concerns. Patient had many questions, which I answered to the best of my ability and to patient's apparent satisfaction. MDM: 110 minutes which includes reviewing records, evaluating patient, documenting in medical record, educating, counseling and coordinating care. Thank you for allowing me to participate in this patient's care. Please call with any questions/concerns. Medication Reconciliation: Outpatient: Has the patient been taking medications as documented in the EMLR? YES: The patient has been taking medications as documented in the EMLR. Essential Medication List for Review used to complete this medication reconciliation. INCLUDED IN THIS LIST: Alphabetical list of active outpatient prescriptions dispensed from this [place] (local) and dispensed from another [place] or [facility] facility (remote) as well as [...] or non-VA provider. /audrey/ HARISH ALFONSO DO PERIODICALS LIBRARY ASSISTANT Signed: 07/30/2024 19:36 Receipt Acknowledged By: 07/31/2024 10:57 /es/ KARI HIGUERA STAFF BULB PACKER HARISH ALFONSO [place] [facility]
--- OUTSIDE RECORDS SUMMARY | 2024-09-12 16:47 | XMS_ITS ---
Author Name [facility] Organization Unknown Encounters Encounter Type Encounter Reason Primary Diagnosis Location Date Emergency Shoulder Pain Shoulder Pain [facility] Care Team Organization Name Specialty Phone Email Start Date End Da te [facility] 2023 [facility] 2023 [facility] 12/21/2023
--- OUTSIDE RECORDS SUMMARY | 2024-09-12 16:47 | XMS_ITS | Clinical Summary ---
Author Organization [facility] Address [address] [place] [address] Care Team Providers Care Sprinkler Helper Name Role Phone Wyatt Potts Primary Care Provider [phone] Allergies Active Allergy Reactions Criticality Noted Date Comments Cefuroxime 03/23/2021 Medications Medication Sig Dispensed Refills Start Date End Date Status sertraline (ZOLOFT) 50 MG tablet Take 50 mg by mouth daily. 0 Active QUEtiapine (SEROquel) 100 MG tablet Take 100 mg by mouth every night at bedtime. 0 Active Active Problems No known active problems Social History Tobacco Use Types Packs/Day Years Used Date Smoking Tobacco: Former Smokeless Tobacco: Never Alcohol Use Standard Drinks/Week Comments Yes 0 (1 standard drink = 0.6 oz pur e alcohol) social Sex and Gender Information Value Date Recorded Sex Assigned at Male 06/11/2018 3:39 PM EST Gender Identity Not on file Sexual Orientation Not on file Job Start Date Occupation Industry Not on file Not on file Not on file Last Filed Vital Signs Vital Sign Reading Time Taken Comments Blood Pressure 169/101 03/24/2022 9:27 PM EST Pulse 72 03/24/2022 9:27 PM EST Temperature 36.9 ??C (98.5 ??F) 03/24/2022 9:27 PM ES T Respiratory Rate 16 03/24/2022 9:27 PM EST Oxygen Saturation 98% 03/24/2022 9:27 PM EST Inhaled Oxygen Concentration - - Weight 113.4 kg (250 lb) 03/24/2022 8:10 PM EST Height 182.9 cm (6') 03/24/2022 8:10 PM EST Body Mass Index 33.91 03/24/2022 8:10 PM EST Plan of Treatment Health Maintenance Due Date Last Done Comments Hepatitis B Vaccines (1 of 3 - 3-dose series) 1981 Hepatitis C Screening 1981 COVID-19 Vaccine (#1) 1981 Depression Screening 1993 Preventative Health Evaluation 1999 DTap / Tdap / Td (2 - Tdap) 09/09/2013 09/10/2003 Influenza Vaccine (#1) 2024 Pneumococcal Vaccine Aged Out No long er eligible based on patient's age to complete this topic RSV Ped < 20 months Aged Out No longe r eligible based on patient's age to complete this topic Care Teams Sprinkler Helper Relationship Specialty Start Date End Date Wyatt Potts PA [address] [place] [id number] PCP - General Physician [employer] 12/21/23
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
--- OUTSIDE RECORDS SUMMARY | 2024-09-12 16:47 | XMS_ITS | Encounter Summary ---
Author Name [facility] Address [address] [place] [address] Care Team Providers Care Referral Management Liaison Name Role Phone ELLIE BRADSHAW Primary Care [...] Ewing's Name Patient's Relationship to Policy Ewing [facility] (MEDICAID) MEDICAID MEDIC AID Dec 30, 2012 MEDICAI D [id number] HARSHIL AL RISTOP PATIENT [facility] [place] [facility] [place] Dec 30, 2012 MEDICAI D [id number] HARSHIL AL RISTOP PATIENT Selected Encounter This section includes the information on record at NH for the Encounter. Date/Time Encounter Type Encounter Description Reason Pro vider Source Jul 25, 2024 09:30 AM Outpatient Encounter PRIMARY CARE/MEDICINE IHE Encounter Template Text not used by VA Plan of Treatment: Future Appointments (+ 6 months) and Future Tests (+/- 45 days) The Plan of Treatment section includes future care activities for the patient from all VA treatmentfacilities. This section includes future appointments and future orders which are active, pending or scheduled. Future Appointments This section includes appointments that were scheduled to occur 6 months from the date of the Encounter, up to a maximum of 20 appointments. The data comes from all [place] treatment facilities. Appointment Date/Time Appointment Type Appointme nt Facility Name Jul 28, 2024 08:30 AM AMBULATORY - [facility]IC[facility] [place] [facility] Aug 09, 2024 11:30 AM AMBULATORY - MEDICINE [facility] [place] [facility] Aug 10, 2024 09:30 AM AMBULATORY - MEDICINE [facility] Aug 15, 2024 10:30 AM AMBULATORY - [facility]HAB MEDICIN E [facility] [place] [facility] Aug 16, 2024 09:00 AM AMBULATORY - REHAB MEDICIN E [facility] [place] [facility] Aug 22, 2024 10:00 AM AMBULATORY - MEDICINE [facility] [place] [facility] Aug 25, 2024 11:00 AM AMBULATORY - REHAB MEDICIN E [facility] [place] [facility] Sep 05, 2024 02:00 PM AMBULATORY - REHAB MEDICIN E [facility] [place] [facility] Sep 06, 2024 11:00 AM AMBULATORY - REHAB MEDICIN E [facility] [place] [facility] Sep 12, 2024 02:30 PM AMBULATORY - MEDICINE [facility] [place] [facility] Sep 13, 2024 10:00 AM AMBULATORY - REHAB MEDICIN E [facility] September 15, 2024 10:30 AM AMBULATORY - NONE [facility] [place] [facility] September 18, 2024 11:00 AM AMBULATORY - REHAB MEDICIN E [facility] September 19, 2024 02:00 PM AMBULATORY - MEDICINE [facility] [place] [facility] September 22, 2024 09:00 AM AMBULATORY - REHAB MEDICIN E [facility] September 25, 2024 09:00 AM AMBULATORY - REHAB MEDICIN E [facility] October 02, 2024 09:00 AM AMBULATORY - REHAB MEDICIN E [facility] October 10, 2024 10:00 AM AMBULATORY - REHAB MEDICIN E [facility] October 11, 2024 01:00 PM AMBULATORY - PSYCHIATRY [facility] October 13, 2024 08:30 AM AMBULATORY - REHAB MEDICIN E [facility] [place] [facility] Active, Pending, and Scheduled Orders This section includes a listing of several types of active, pending, and scheduled orders, including clinic medications orders, diagnostic test orders, procedure orders and consult orders; where the start date of the order is 45 days before the date of the Encounter or 45 days after the date of theEncounter. The data comes from all [place] treatment facilities. Test Date/Time Test Type Test Details Facility Name Jun 12, 2024 11:01 AM Consult Order PSYCHIATRI C MEDICATION SOPC OUTPT Cons [facility] [place] [facility] Jul 30, 2024 07:39 PM Consult Order TBI OPTOME TRY OUTPT Cons [facility] [place] [facility] Aug 10, 2024 09:42 AM Consult Order COMMUNITY CARE-NEUROSURGERY Cons [facility] Aug 18, 2024 11:56 AM Consult Order COMMUNITY CARE-DENTAL GENERAL Cons [facility] [place] [facility] Aug 18, 2024 11:56 AM Consult Order COMMUNITY CARE-DENTAL GENERAL Cons [facility] [place] [facility] Aug 18, 2024 11:56 AM Consult Order COMMUNITY CARE-DENTAL SPECIALTY Cons [facility] [place] [facility] Aug 25, 2024 12:12 PM Consult Order TBI SPEECH OUTPT Cons [facility] [place] [facility] Aug 25, 2024 12:26 PM Consult Order COMMUNITY CARE-PAIN MANAGEMENT Cons [facility] [place] [facility] Sep 05, 2024 04:22 PM Consult Order TBI OPTOME TRY OUTPT Cons [facility] [place] [facility] Lab Results: +/- 30 days of the encounter This section includes the Chemistry and Hematology Lab Results on record with NH for the patient. Radiology Reports and Pathology Reports are provided separately, in subsequent sections. Lab Results This section contains the Chemistry/Hematology Results that were resulted 30 days before or 30 daysafter the date of the Encounter. Date/Time Source Result Type Result - Unit Interpretation Reference Range Specimen Type Comment Aug 02, 2024 10:15 AM [facility] MICROALBUMIN CREATININE RATIO PANEL URINE Specimen Type: URINE No comment entered. Ordering Provider: ELLIE BRADSHAW Report Released Date/Time: Jun 26, 2024 10:28 AM Reporting Lab: [facility] [place] [address] [address] Performing Lab: [facility] [address] [facility] [address] MICROALBUMIN/CREATININE RATIO 12.8 mg/g 0-29.9 MICROALBUMIN,QUANTITATIVE 0.5 mg/dL RR U NAVAIL CREATININE URINE 39.09 mg/dL Aug 02, 2024 10:15 AM [facility] CALCIUM SERUM Sp ecimen Type: SERUM No comment entered. Ordering Provider: ELLIE BRADSHAW Report Released Date/Time: Jun 26, 2024 10:28 AM Reporting Lab: [facility] [address] [facility] [address] Performing Lab: [facility] [address] [address] CALCIUM 9.5 mg/dL 8.5-10.2 Aug 02, 2024 10:15 AM [facility] LIPID PANEL FASTING SERUM Specimen Ty pe: SERUM No comment entered. Ordering Provider: ELLIE BRADSHAW Report Released Date/Time: Jun 26, 2024 10:28 AM Reporting Lab: [facility] [address] [facility] [address] Performing Lab: [facility]USE[address] [address] CHOLESTEROL 218 mg/dL H TRIGLYCERIDE 430 mg/dL H 0-150 LDL calculated Reflex to dLDL mg/dL 0-12 9 CHOL/HDL 6.4 HDL CHOLESTEROL 34 mg/dL L 40-60 LDL DIRECT 138 mg/dL H Aug 02, 2024 10:15 AM [facility] LIVER FUNCTION SERUM Specimen Type: SERUM No comment entered. Ordering Provider: ELLIE BRADSHAW Report Released Date/Time: Jun 26, 2024 10:28 AM Reporting Lab: [facility]TR[facility] [address] [facility] [address] Performing Lab: [facility] [address] [address] PROTEIN,TOTAL 7.8 g/dL 6.0-8.3 ALBUMIN 4.3 g/dL 3.5-5.0 ALKALINE PHOSPHATASE 91 U/L 40-150 AST 22 U/L 5-34 ALT 32 U/L BILIRUBIN, TOTAL 0.3 mg/dL 0.2-1.2 Aug 02, 2024 10:15 AM [facility] URINALYSIS URINE S pecimen Type: URINE Comment: If Glucose = >500 and Ketones are positive, please alert the Physician. Ordering Provider: ELLIE BRADSHAW Report Released Date/Time: Jun 26, 2024 10:28 AM Reporting Lab: [facility] [address] [facility] [address] Performing Lab: [address] [address] UA COLOR Colorless Yellow UA APPEARANCE Clear Clear UA GLUCOSE Normal mg/dL Negative UA KETONES NEGATIVE mg/dL Negative UA BLOOD NEGATIVE mg/dL Negative UA PROTEIN NEGATIVE mg/dL Negative UA NITRITE NEGATIVE mg/dL Negative UA BILIRUBIN NEGATIVE mg/dL Negative UA SPECIFIC GRAVITY 1.009 L 1.016-1.022 UA pH 6.5 5.0-9.0 UA UROBILINOGEN Normal mg/dL <2.0 UA LEUKOCYTE NEGATIVE Negative Aug 02, 2024 10:15 AM [facility] BASIC METABOLIC PANEL (fasting) SERUM Specimen Type: SERUM No comment entered. Ordering Provider: ELLIE BRADSHAW Report Released Date/Time: Jun 26, 2024 10:28 AM Reporting Lab: [address] [address] Performing Lab: [address] [address] UREA NITROGEN 14 mg/dL 7-25 GLUCOSE 98 mg/dL 65-100 SODIUM 137 mmol/L 135-145 POTASSIUM 4.6 mmol/L 3.5-5.0 CHLORIDE 103 mmol/L 100-110 CO2 26 meq/L 20-30 CALCIUM 9.5 mg/dL 8.5-10.2 CREATININE, Serum 0.82 mg/dL 0.50-1.40 eGFR(CKD-EPI 2020) >90 mL/min >60 Aug 02, 2024 10:15 AM [facility] URIC ACID SERUM Sp ecimen Type: SERUM No comment entered. Ordering Provider: ELLIE BRADSHAW Report Released Date/Time: Jun 26, 2024 10:28 AM Reporting Lab: [address] [address] Performing Lab: [address] [address] URIC ACID 6.1 mg/dL 3.5-7.2 Aug 02, 2024 10:15 AM [facility] VITAMIN D (25-OH) SERUM Specimen Type: SERUM No comment entered. Ordering Provider: ELLIE BRADSHAW Report Released Date/Time: Jun 26, 2024 10:28 AM Reporting Lab: [address] [address] Performing Lab: [address] [address] VITAMIN D (25-OH) 19 ng/mL L 20-50 Aug 02, 2024 10:15 AM [facility] HEMOGLOBIN A1C PANEL BLOOD Specimen T ype: [...] Jun 26, 2024 10:28 AM Reporting Lab: [address] [address] Performing Lab: [address] [address] HEMOGLOBIN A1C 5.3 4.0-5.6 Aug 02, 2024 10:15 AM [facility] TSH SERUM Sp ecimen Type: SERUM No comment entered. Ordering Provider: ELLIE BRADSHAW Report Released Date/Time: Jun 26, 2024 10:28 AM Reporting Lab: [address] [address] Performing Lab: [address] [address] TSH 1.56 u[IU]/mL 0.35-5.00 Aug 02, 2024 10:15 AM [facility] PSA SERUM Sp ecimen Type: SERUM No comment entered. Ordering Provider: ELLIE BRADSHAW Report Released Date/Time: Jun 26, 2024 10:28 AM Reporting Lab: [facility] [address] [facility] [address] Performing Lab: [facility]ENTERTRN [facility]ENTERUS[facility] [address] [facility] [address] PSA 0.29 ng/mL 0.00-4.00 Aug 02, 2024 10:15 AM [facility] CBC AND DIFF (AUTO) BLOOD Specimen Ty pe: BLOOD No comment entered. Ordering Provider: ELLIE BRADSHAW Report Released Date/Time: Jun 26, 2024 10:28 AM Reporting Lab: [facility] [address] [address] Performing Lab: [facility] [address] [facility] [address] WBC 8.80 10*3/uL 4.50-11.00 RBC 5.88 10*6/uL [...] and tobacco- related health factors from the [place] facility where the Encounter took place. Current Smoking Status This section includes the most current smoking, or tobacco-related health factor, from the [place] facility where the Encounter took place. Date/Time Current Smoking Status Comment Facil ity Jun 26, 2024 10:00 AM VA-TOBACCO USE FORMER CIGARETTES [facility] Tobacco Use History This section includes a history of the smoking, or tobacco-related health factors, that were collected on or before the date of the Encounter. The data comes from the [place] facility where the Encounter took place. Date/Time Smoking Status/Tobacco Use Comment F acility Jun 26, 2024 10:00 AM VA-TOBACCO USE FOR DEBRA CIGARETTES [facility] May 26, 2022 11:30 AM VA-TOBACCO FORMER USER [facility] May 26, 2022 11:30 AM VA-TOBACCO QUIT 5 TO < 15 YRS [facility] Apr 29, 2021 11:30 AM VA-TOBACCO FORMER USER [facility] Apr 29, 2021 11:30 AM VA-TOBACCO QUIT 1 TO < 5 YRS [facility] Apr 09, 2020 09:00 AM VA-TOBACCO FORMER USER [facility] Apr 09, 2020 09:00 AM VA-TOBACCO QUIT < 1 YEAR [facility] Jan 10, 2020 09:30 AM VA-TOBACCO FORMER USER [facility] Jan 10, 2020 09:30 AM VA-TOBACCO QUIT < 1 YEAR [facility] Aug 08, 2018 01:45 PM VA-TOBACCO USE > 1 5 LESS THAN 30 YEARS [facility] Aug 08, 2018 01:45 PM VA-TOBACCO USE ADVICE [facility] Aug 08, 2018 01:45 PM VA-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 Interested in tobacco cessation next visit. [facility] Jun 04, 2015 10:22 AM QUIT TOBACCO USE 1 -7 YEARS AGO stopped one month ago [facility] May 13, 2015 08:27 AM V1-PT DECLINES REF TO TOBACCO CESS PRGM [facility] May 13, 2015 08:27 AM V1-PT THINKING ABO UT QUIT TOBACCO USE [facility] Advance Directives: All historical and current Section Date Range: From patient's date of to the date document was created. This section includes ALL of a patient's completed or amended [place] Advance and Rescinded Directives. The entries below indicate that a directive exists for the patient, but an actual copy is not included with this document. The data comes from all [place] facilities. Date Advance Directives Provider Source Mar 09, 2013 ADVANCE DIRECTIVE DISCUSSION BETTE JACKMAN [facility] [facility] Radiology Reports: +/- 30 days of [...] the Encounter. The data comes from all [place] treatment facilities. Date/Time Radiology Report Provider Source Aug 02, 2024 08:00 AM OUTSIDE MRI CERVIC AL SPINE WO CONTRAST: PATTI ALBRENDA Owens [id number] -[id number] M Exm Date: AUG 02, 2024@08:00 Req Phys: ELLIE BRADSHAW Loc: SPR PACT 3 PA WH (Req'g Loc) Img Loc: OUTSIDE GENERAL RADIOLOGY Service: Unknown (Case [id number] COMPLETE) OUTSIDE MRI CERVICAL SPINE WO CON(RAD Detailed) CPT:25760 Reason for Study: mro c spine Clinical [...] Encounter. Date/Time Encounter Note(s) Provider Source Jul 25, 2024 09:45 AM ADMINISTRATIVE NOT E: LOCAL TITLE: ADMINISTRATIVE NOTE STANDARD TITLE: ADMINISTRATIVE NOTE DATE OF NOTE: JUL 25, 2024@09:45 ENTRY DATE: JUL 25, 2024@09:45:32 AUTHOR: TEE LO EXP COSIGNER: URGENCY: STATUS: COMPLETED Fowler was a no show for today's scheduled appointment. [facility] please reach out to reschedule . /audrye/ TEE LO LPN LPN Signed: 07/25/2024 09:47 Receipt Acknowledged By: 07/26/2024 11:42 /audrey/ SEMAJ VENTURA Advanced Cold Type Artist TEE LOFIELD
--- OUTSIDE RECORDS SUMMARY | 2024-09-12 16:47 | XMS_ITS | Continuity of Care Document ---
Author Name [facility] Organization [facility] Care Team Providers [employer] System Administrator Name Role Phone [facility] Unavailable Unavailable Problems Combined list of problems from Department of Defense and Veterans Affairs facilities. It does not include entries that were removed or entered in error. Problem Status Onset Date Problem Type Date of Resolution Comments Source Patient Counseling: Inactive Condition [facility] Abnormal blood pressure (SNOMED CT 79120225) Active Condition [facility] [place] [facility] Acute upper respiratory infection (SNOMED CT 62856236) Active Condition [facility] [place] [facility] Benign hypertension Active Condition [facility] Cervical radiculopathy Active Condition Aug 10, 2024 Entered By: ELLIE BRADSHAW Comment: Cervical Radiculopathy (Radiates to Fingers, L Hand)Aug 10, 2024 Entered By: ELLIE BRADSHAW Comment: MRI, C-Spine Ryus AUG 08: Multi-Level Discopathy and Spondylosis, [email or web address] atMar 2024 Entered By: ELLIE BRADSHAW Comment: C5-C6, C6-C7; Type Referral in AUG 08 to Neuro-Surg [facility] Chronic post-traumatic stress disorder (SNOMED CT 071175470) Active Condition Jan 05, 2023 Entered By: JULIETTE BOLES Comment: updated. [facility] [place] [facility] Ex-tobacco user Active Condition Jan 05, 2023 Entered By: JULIETTE BOLES Comment: updated. [facility] Exposure to potentially hazardous substance ([facility] [id number]) Active Condition Jun 28 Entered By: CONNOR ANDERSON Comment: Entered automatically through [facility] Problem List documentation program [facility] [place] [facility] Gastroesophageal reflux disease Active Condition Feb 16, 2017 Entered By: JULIETTE BOLES Comment: diagnosis updated February 16, 2017 [facility] Headache disorder Active Condition No v 2012 Entered By: FRED LIANG Comment: followed by [facility] 02/10/13, MRI 02/24/13 [facility] [place] [facility] Herpes zoster ophthalmicus Active Condition Dec 16, 2017 Entered By: ELLIE BRADSHAW Comment: See My Note Dated JAN 01 [facility] Insomnia, unspecified (ICD-9-CM 780.52) Active Condition [facility] Irritable bowel syndrome Active Condition Feb 14, 2016 Entered By: ELLIE BRADSHAW Comment: Tentative Dx as of JAN 30; CT of ABD done JAN 30 ([facility]?)Feb 14, 2016 Entered By: ELLIE BRADSHAW Comment: Results CT Pending; Has Alternating Constipation & Diarrhea;Feb 14, 2016 Entered By: ELLIE BRADSHAW Comment: Diarrheal Component More Prominent [facility] Lactose intolerance Active Condition [facility] [place] [facility] 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 [facility] [place] [facility] Unemployment * Inactive Condition 10/18/2019 [facility] [place] [facility] Diagnosis: ICD-10-CM Z87.820 Personal history of traumatic brain injury Active Diagnosis [facility] [place] [facility] Diagnosis: ICD-10-CM M54.2 Cervicalgia Active Diagnosis [facility] Diagnosis: ICD-10-CM R42 Dizziness and giddiness Active Diagnosis [facility] [place] [facility] Diagnosis: ICD-10-CM M54.12 Radiculopathy, cervical region Active Diagnosis [facility] [place] [facility] Diagnosis: ICD-10-CM M79.18 Myalgia, other site Active Diagnosis [facility] [place] [facility] Diagnosis: ICD-10-CM M47.892 Other spondylosis, cervical region Active Diagnosis [facility] [place] [facility] Diagnosis: ICD-10-CM Z71.89 Other specified counseling Active [facility] Diagnosis: ICD-10-CM I10 Essential (primary) hypertension Active Diagnosis [facility] Diagnosis: ICD-10-CM F43.12 Post-traumatic stress disorder, chronic Active Diagnosis [facility] Medications Combined list of outpatient medications from Department of Defense and [facility] Affairs facilities.Medications provided include 1) outpatient medications from the last 15 months, and 2) patient-reported medications. Medication Details Route Status Patient Instructions Prescription Expires Prescription Number Last Dispense Date Ordering Provider Order Date Order Qty Source BACLOFEN 10MG TAB TAKE ONE TABLET BY MOUTH THREE TIMES DAILY NEEDED FOR MUSCLE RIGIDITY ORAL DISCONT INUED (EDIT) 08/17/2025 [id number] 5 TRISTEN ALFONSO [facility] 2024 90 [facility] BACLOFEN 20MG TAB TAKE ONE TABLET BY MOUTH THREE TIMES DAILY NEEDED FOR MUSCLE RIGIDITY ORAL ACTIVE 08/26/2025 [id number] 5 TRISTEN ALFONSO [facility] 2024 270 [facility] CATAPRES (BRAND) 0.1 MG ORAL TAB TAKE ONE TABLET BY MOUTH AT BEDTIME FOR 60 DAYS, AND TAKE ONE TABLET AT BEDTIME NEEDED TO CONTROL BLOOD PRESSURE IF BLOOD PRESSURE ABOVE 140MG. TAKE TWO TABLETS 01/06/2024 [id number] 4 JULIETTE BOLES [facility] CHOLECALCIF TANNER 50MCG (2,000UNIT) TAB TAKE ONE TABLET BY MOUTH ONCE DAILY FOR VITAMIN SUPPLEME NTATION ORAL ACTIVE 11/23/2024 [id number] 5 TRISTEN ALFONSO [facility] 2024 100 [facility] [place] CLONIDINE HCL 0.1MG TAB TAKE ONE TABLET BY MOUTH AT BEDTIME ORAL ACTIVE 08/11/2025 [id number] 5 ANTONIO BRADSHAW 2024 30 [place] CLONIDINE HCL 0.1MG TAB TAKE ONE TABLET BY MOUTH AT BEDTIME ORAL DISCONT INUED 06/14/2025 [id number] 5 Christopher [employer] 2024 30 [place] CLONIDINE HCL 0.1MG TAB TAKE ONE TABLET BY MOUTH AT BEDTIME FOR 60 DAYS, AND TAKE ONE TABLET AT BEDTIME NEEDED TO CONTROL BLOOD PRESSURE IF BLOOD PRESSURE ABOVE 140MG. TAKE TWO TABLETS ORAL 01/06/2024 [id number] 4 RAAD BOLES Davin 2022 120 [place] CYCLOBENZAP RINE HCL 10MG TAB TAKE ONE TABLET BY MOUTH AT BEDTIME FOR MUSCLE SPASM ORAL DISCONT INUED BY PROVIDE R 08/11/2025 [id number] 5 ANTONIO BRADSHAW 2024 14 [place] CYCLOBENZAP RINE HCL 10MG TAB TAKE ONE TABLET BY MOUTH AT BEDTIME FOR MUSCLE SPASM ORAL DISCONT INUED (EDIT) 07/31/2025 [id number] 5 TRISTEN ALFONSO [facility] 2024 90 [facility] GABAPENTIN 100MG CAP TAKE ONE CAPSULE BY MOUTH AT BEDTIME FOR 3 DAYS, THEN TAKE [...] DAYS, THEN TAKE THREE CAPSULES TWICE DAILY FOR HEADACHE S AND NERVE PAIN ORAL DISCONT INUED BY PROVIDE R 08/29/2024 [id number] 5 TRISTEN ALFONSO [facility] 2024 135 [facility] [place] [facility] GABAPENTIN 600MG TAB TAKE ONE TABLET BY MOUTH THREE TIMES A DAY ORAL ACTIVE 08/26/2025 [id number] 5 ALFONSO,TRISTEN Della ALEJANDRO THI 2024 270 [facility] [place] GABAPENTIN 600MG TAB TAKE ONE-HALF TABLET BY MOUTH TWICE DAILY FOR HEADACHE S AND NERVE PAIN ORAL DISCONT INUED (EDIT) 08/17/2025 [id number] 5 NATYTRISTEN Della ALEJANDRO THI 2024 90 [facility] [place] [facility] GABAPENTIN 600MG TAB TAKE ONE-HALF TABLET BY MOUTH TWICE DAILY ORAL DISCONT INUED (EDIT) 07/31/2025 [id number] 5 NATYTRISTEN Della ALEJANDRO THI 2024 90 [facility] [place] [facility] LISINOPRIL 10MG TAB TAKE ONE TABLET BY MOUTH ONCE DAILY TO CONTROL BLOOD PRESSURE ORAL ACTIVE 10/09/2024 [id number] 5 ANTONIO BRADSHAW 2024 60 [place] LISINOPRIL 10MG TAB TAKE ONE TABLET BY MOUTH ONCE DAILY TO CONTROL BLOOD PRESSURE ORAL DISCONT INUED 06/27/2025 [id number] 5 ANTONIO BRADSHAW 2024 30 [place] MELATONIN 3MG CAP/TAB TAKE ONE CAPSULE/ TABLET BY MOUTH AT BEDTIME NEEDED ORAL ACTIVE 06/14/2025 [id number] 5 [employer] 2024 60 [place] MELATONIN 3MG CAP/TAB TAKE ONE CAPSULE/ TABLET BY MOUTH AT BEDTIME FOR INSOMNIA ORAL 01/06/2024 [id number] 4 RAAD BOLES A 2022 60 [place] NALOXONE HCL 4MG/SPRAY SOLN,SPRAY, NASAL INSTILL 1 SPRAY ONE NOSTRIL ONE TIME NEEDED FOR OPIOID OVERDOSE CALL 911 WITH ADMINIST RATION. REPEAT WITH SECOND DEVICE IF SYMPTOMS RETURN NASAL 10/12/2023 [id number] 4 RAAD BOLES A 2023 2 [place] Naloxone Hydrochlori de 40 MG/ML [place], Nasal INSTILL 1 SPRAY ONE NOSTRIL ONE TIME NEEDED FOR OPIOID OVERDOSE CALL 911 WITH ADMINIST RATION. REPEAT WITH SECOND DEVICE IF SYMPTOMS RETURN 10/12/2023 [id number] 4 JULIETTE BOLES A 2023 2 [facility] Naloxone Hydrochlori de 40 MG/ML [place], Nasal INSTILL 1 SPRAY ONE NOSTRIL ONE TIME NEEDED FOR OPIOID OVERDOSE CALL 911 WITH ADMINIST RATION. REPEAT WITH SECOND DEVICE IF SYMPTOMS RETURN 10/12/2023 [id number] 4 ELVI, JULIETTE A 2023 2 [facility] NO KNOWN NON-VA MEDS MISCELLANEO US ACTIVE LUCY SCHAFER JR DO 2011 [facility] Quetiapine (Seroquel Starter Pack) Tablet 25mg Oral TAKE ONE TABLET BY MOUTH AT BEDTIME 01/06/2024 [id number] 4 JULIETTE BOLES 2023 90 [facility] QUETIAPINE FUMARATE 25MG TAB TAKE ONE-HALF TABLET BY MOUTH AT BEDTIME NEEDED MOOD ORAL ACTIVE 06/14/2025 [id number] 5 Christopher [employer]EL 2024 15 [place] QUETIAPINE FUMARATE 25MG TAB TAKE ONE TABLET BY MOUTH AT BEDTIME ORAL 01/06/2024 [id number] 4 RAAD BOLES A 2022 90 [place] RIZATRIPTAN BENZOATE 10MG TAB,ORALLY DISINTEGRAT ING PLACE ONE TABLET ON THE TONGUE DIRECTED (TAKE DIRECTED AT ONSET OF HEADACHE , MAY REPEAT ONE TIME IN 2 HOURS IF NEEDED - ALLOW TABLET TO DISSOLVE ON TONGUE, AND SWALLOW WITH SALIVA) ORAL ACTIVE 08/26/2025 [id number] 5 TRISTEN ALFONSO 2024 27 [facility] [place] [facility] sertraline (U/D) 100 MG ORAL TAB TAKE TWO TABLETS BY MOUTH ONCE DAILY 01/06/2024 [id number] 4 JULIETTE BOLES Davin 2023 180 [facility] SERTRALINE HCL 100MG TAB TAKE ONE TABLET BY MOUTH ONCE DAILY ORAL ACTIVE 06/14/2025 [id number] 5 Christopher [employer] 2024 60 [facility] SERTRALINE HCL 100MG TAB TAKE TWO TABLETS BY MOUTH ONCE DAILY ORAL 01/06/2024 [id number] 4 RAAD BOLES 2022 180 [facility] [place] Allergies, Adverse Reactions, Alerts Combined list of allergies from [facility] and Veterans Affairs facilities. It does not include entries that were removed or entered in error. Substance Category Reaction Severity Reaction type Status Date Reported Comments Source Ceftazidime Drug allergy (disorder) Eruption of skin active 2 [facility] CEFTAZIDIME Propensity to adverse reactions to drug (finding) Eruption active 2 [facility] CEFTIN Propensity to adverse reactions to drug (finding) Eruption active 2 [facility] Doxycycline Drug allergy (disorder) Urticaria active 6 [facility] DOXYCYCLINE Propensity to adverse reactions to drug (finding) Urticaria active 6 [facility] Immunizations Combined list of available immunizations from the [facility] and Veterans [facility] facilities. Immunization Series Date Given Administered By Site Reaction Lot Number CVX Code Drug Music Mixer Status Comments Source PNEUMOCOCCAL POLYSACCHARID E PPV23 2019 33 complet ed [facility] [place] FLU VACCINE (HISTORICAL) 2012 88 complet ed Vet refused vaccine [facility] INFLUENZA, UNSPECIFIED FORMULATION 2011 88 complet ed [facility] TDAP 2011 115 complet ed [id number] C exp: 09/05/13 [facility] DTAP, UNSPECIFIED FORMULATION 2009 107 complet ed [facility] PADMINI A TD(ADULT) UNSPECIFIED FORMULATION 2008 139 complet ed [facility] Results Combined list of recent chemistry, hematology and other laboratory results from [facility] and Veterans Affairs, ranging from 15 months to all on record, depending upon the facility. Order Name Results Value Reference Range Date Interpretation Specimen Comments Source MICROALB UMIN CREATINI NE RATIO PANEL MICROALBUM IN/CREATIN INE [MASS RATIO] IN URINE 12.8 mg/g 0 - 29.9 03/19 /2025 Specimen Type: URINE No comment entered. Ordering Provider: ELLIE BRADSHAW Report Released Date/Time: Jun 26, 2024 10:28 AM Reporting Lab: [facility] [address] [address] Performing Lab: [facility] [address] [address] [place] MICROALB UMIN CREATINI NE RATIO PANEL MICROALBUM IN [MASS/VOLU ME] IN URINE 0.5 mg/dL 08/02 Specimen Type: URINE No comment entered. Ordering Provider: ELLIE BRADSHAW Report Released Date/Time: Jun 26, 2024 10:28 AM Reporting Lab: [facility] [address] [address] Performing Lab: [facility] [address] [address] [place] MICROALB UMIN CREATINI NE RATIO PANEL CREATININE [MASS/VOLU ME] IN URINE 39.09 mg/dL 08/02 Specimen Type: URINE No comment entered. Ordering Provider: ELLIE BRADSHAW Report Released Date/Time: Jun 26, 2024 10:28 AM Reporting Lab: [facility] [address] [address] Performing Lab: [facility] [address] [address] [place] CALCIUM CALCIUM [MASS/VOLU ME] IN SERUM OR PLASMA 9.5 mg/dL 8.5 - 10.2 08/02 Specimen Type: SERUM No comment entered. Ordering Provider: ELLIE BRADSHAW Report Released Date/Time: Jun 26, 2024 10:28 AM Reporting Lab: [facility] [address] [address] Performing Lab: [facility] [address] [address] [place] LIVER FUNCTION PROTEIN [MASS/VOLU ME] IN SERUM OR PLASMA 7.8 g/dL 6.0 - 8.3 08/02 Specimen Type: SERUM No comment entered. Ordering Provider: ELLIE BRADSHAW Report Released Date/Time: Jun 26, 2024 10:28 AM Reporting Lab: [facility] [place] [facility] [address] [address] Performing Lab: [facility] [place] [facility] [address] [address] [place] LIVER FUNCTION ALBUMIN [MASS/VOLU ME] IN SERUM OR PLASMA 4.3 g/dL 3.5 - 5.0 08/02 Specimen Type: SERUM No comment entered. Ordering Provider: ELLIE BRADSHAW Report Released Date/Time: Jun 26, 2024 10:28 AM Reporting Lab: [facility] [place] [facility] [address] [address] Performing Lab: [facility] [place] [address] [address] [place] LIVER FUNCTION ALKALINE PHOSPHATAS E [ENZYMATIC ACTIVITY/V OLUME] IN SERUM OR PLASMA 91 U/L 40 - 150 08/02 Specimen Type: SERUM No comment entered. Ordering Provider: ELLIE BRADSHAW Report Released Date/Time: Jun 26, 2024 10:28 AM Reporting Lab: [facility] [place] [facility] [address] [facility] [address] Performing Lab: [facility] [place] [facility] [address] [address] [place] LIVER FUNCTION ASPARTATE AMINOTRANS FERASE [ENZYMATIC ACTIVITY/V OLUME] IN SERUM OR PLASMA 22 U/L 5 - 34 08/02 Specimen Type: SERUM No comment entered. Ordering Provider: ELLIE BRADSHAW Report Released Date/Time: Jun 26, 2024 10:28 AM Reporting Lab: [facility] [place] [facility] [address] [address] Performing Lab: [facility] [place] [address] [address] [place] LIVER FUNCTION ALANINE AMINOTRANS FERASE [ENZYMATIC ACTIVITY/V OLUME] IN SERUM OR PLASMA 32 U/L 08/02 Specimen Type: SERUM No comment entered. Ordering Provider: ELLIE BRADSHAW Report Released Date/Time: Jun 26, 2024 10:28 AM Reporting Lab: [facility] [address] [address] Performing Lab: [facility] [address] [address] [place] LIVER FUNCTION BILIRUBIN. TOTAL [MASS/VOLU ME] IN SERUM OR PLASMA 0.3 mg/dL 0.2 - 1.2 08/02 Specimen Type: SERUM No comment entered. Ordering Provider: ELLIE BRADSHAW Report Released Date/Time: Jun 26, 2024 10:28 AM Reporting Lab: [facility] [address] [facility] [address] Performing Lab: [facility] [address] [address] [place] LIPID PANEL FASTING CHOLESTERO L [MASS/VOLU ME] IN SERUM OR PLASMA 218 mg/dL 08/02 H Specimen Type: SERUM No comment entered. Ordering Provider: ELLIE BRADSHAW Report Released Date/Time: Jun 26, 2024 10:28 AM Reporting Lab: [facility] [address] [address] Performing Lab: [facility] [address] [address] [place] LIPID PANEL FASTING TRIGLYCERI DE [MASS/VOLU ME] IN SERUM OR PLASMA 430 mg/dL 0 - 150 08/02 H Specimen Type: SERUM No comment entered. Ordering Provider: ELLIE BRADSHAW Report Released Date/Time: Jun 26, 2024 10:28 AM Reporting Lab: [facility] [address] [address] Performing Lab: [facility] [address] [address] [place] LIPID PANEL FASTING CHOLESTERO L IN LDL [MASS/VOLU ME] IN SERUM OR PLASMA BY CALCULATIO N Reflex to dLDLmg/d L 0 - 129 08/02 Specimen Type: SERUM No comment entered. Ordering Provider: ELLIE BRADSHAW Report Released Date/Time: Jun 26, 2024 10:28 AM Reporting Lab: [facility] [address] [facility] [address] Performing Lab: [facility] [address] [address] [place] LIPID PANEL FASTING CHOLESTERO L.TOTAL/CH OLESTEROL IN HDL [MASS RATIO] IN SERUM OR PLASMA 6.4 08/02 Specimen Type: SERUM No comment entered. Ordering Provider: ELLIE BRADSHAW Report Released Date/Time: Jun 26, 2024 10:28 AM Reporting Lab: [facility] [address] [facility] [address] Performing Lab: [facility] [address] [address] [place] LIPID PANEL FASTING CHOLESTERO L IN HDL [MASS/VOLU ME] IN SERUM OR PLASMA 34 mg/dL 40 - 60 08/02 L Specimen Type: SERUM No comment entered. Ordering Provider: ELLIE BRADSHAW Report Released Date/Time: Jun 26, 2024 10:28 AM Reporting Lab: [facility] [address] [address] Performing Lab: [facility] [address] [address] [place] LIPID PANEL FASTING CHOLESTERO L IN LDL [MASS/VOLU ME] IN SERUM OR PLASMA BY DIRECT ASSAY 138 mg/dL 08/02 H Specimen Type: SERUM No comment entered. Ordering Provider: ELLIE BRADSHAW Report Released Date/Time: Jun 26, 2024 10:28 AM Reporting Lab: [facility] [address] [address] Performing Lab: [facility] [address] [address] [place] URINALYS IS COLOR OF URINE Colorles s 08/02 Specimen Type: URINE Comment: If Glucose = >500 and Ketones are positive, please alert the Physician. Ordering Provider: ELLIE BRADSHAW Report Released Date/Time: Jun 26, 2024 10:28 AM Reporting Lab: [address] [address] Performing Lab: [facility] [place] [facility] [address] [facility] [address] [place] URINALYS IS APPEARANCE OF URINE Clear 08/02 Specimen Type: URINE Comment: If Glucose = >500 and Ketones are positive, please alert the Physician. Ordering Provider: ELLIE BRADSHAW Report Released Date/Time: Jun 26, 2024 10:28 AM Reporting Lab: [facility] [place] [address] [address] Performing Lab: [facility]N [facility]ITALUSE[address] [address] [place] URINALYS IS GLUCOSE [MASS/VOLU ME] IN URINE Normalmg /dL 08/02 Specimen Type: URINE Comment: If Glucose = >500 and Ketones are positive, please alert the Physician. Ordering Provider: ELLIE BRADSHAW Report Released Date/Time: Jun 26, 2024 10:28 AM Reporting Lab: [facility] [place] [address] [address] Performing Lab: [facility] [address] [place] URINALYS IS KETONES [MASS/VOLU ME] IN URINE BY TEST STRIP NEGATIVE mg/dL 08/02 Specimen Type: URINE Comment: If Glucose = >500 and Ketones are positive, please alert the Physician. Ordering Provider: ELLIE BRADSHAW Report Released Date/Time: Jun 26, 2024 10:28 AM Reporting Lab: [facility]ITAL[facility] [address] [address] Performing Lab: [facility]ITAL[facility] [address] [address] [place] URINALYS IS ERYTHROCYT ES [PRESENCE] IN URINE SEDIMENT BY LIGHT MICROSCOPY NEGATIVE mg/dL 08/02 Specimen Type: URINE Comment: If Glucose = >500 and Ketones are positive, please alert the Physician. Ordering Provider: ELLIE BRADSHAW Report Released Date/Time: Jun 26, 2024 10:28 AM Reporting Lab: [facility] MASSUSE[address] [address] Performing Lab: [address] [address] [place] URINALYS IS PROTEIN [MASS/VOLU ME] IN URINE BY TEST STRIP NEGATIVE mg/dL 08/02 Specimen Type: URINE Comment: If Glucose = >500 and Ketones are positive, please alert the Physician. Ordering Provider: ELLIE BRADSHAW Report Released Date/Time: Jun 26, 2024 10:28 AM Reporting Lab: [address] [address] Performing Lab: [address] [address] [place] URINALYS IS NITRITE [PRESENCE] IN URINE NEGATIVE mg/dL 08/02 Specimen Type: URINE Comment: If Glucose = >500 and Ketones are positive, please alert the Physician. Ordering Provider: ELLIE BRADSHAW Report Released Date/Time: Jun 26, 2024 10:28 AM Reporting Lab: [address] [address] Performing Lab: [address] [address] [place] URINALYS IS BILIRUBIN. TOTAL [PRESENCE] IN URINE NEGATIVE mg/dL 08/02 Specimen Type: URINE Comment: If Glucose = >500 and Ketones are positive, please alert the Physician. Ordering Provider: ELLIE BRADSHAW Report Released Date/Time: Jun 26, 2024 10:28 AM Reporting Lab: [address] [address] Performing Lab: [address] [address] [place] URINALYS IS SPECIFIC GRAVITY OF URINE BY REFRACTOME TRY 1.009 1.016 - 1.022 08/02 L Specimen Type: URINE Comment: If Glucose = >500 and Ketones are positive, please alert the Physician. Ordering Provider: ELLIE BRADSHAW Report Released Date/Time: Jun 26, 2024 10:28 AM Reporting Lab: [facility] [address] Performing Lab: [address] [address] [employer] URINALYS IS PH OF URINE BY TEST STRIP 6.5 5.0 - 9.0 08/02 Specimen Type: URINE Comment: If Glucose = >500 and Ketones are positive, please alert the Physician. Ordering Provider: ELLIE BRADSHAW Report Released Date/Time: Jun 26, 2024 10:28 AM Reporting Lab: [address] [address] Performing Lab: [address] [address] [employer] [facility] [place] URINALYS IS UROBILINOG EN [MASS/VOLU ME] IN URINE BY TEST STRIP Normalmg /dL <2.0 - 2.0 08/02 Specimen Type: URINE Comment: If Glucose = >500 and Ketones are positive, please alert the Physician. Ordering Provider: ELLIE BRADSHAW Report Released Date/Time: Jun 26, 2024 10:28 AM Reporting Lab: [address] [address] Performing Lab: [address] [address] [employer] [place] URINALYS IS LEUKOCYTE ESTERASE [PRESENCE] IN URINE BY TEST STRIP NEGATIVE 08/02 Specimen Type: URINE Comment: If Glucose = >500 and Ketones are positive, please alert the Physician. Ordering Provider: ELLIE BRADSHAW Report Released Date/Time: Jun 26, 2024 10:28 AM Reporting Lab: [address] [address] Performing Lab: [address] [address] [facility] [place] BASIC METABOLI C PANEL (fasting ) UREA NITROGEN [MASS/VOLU ME] IN SERUM OR PLASMA 14 mg/dL 7 - 25 08/02 Specimen Type: SERUM No comment entered. Ordering Provider: ELLIE BRADSHAW Report Released Date/Time: Jun 26, 2024 10:28 AM Reporting [facility]: [facility] [address] [address] Performing Lab: [facility] [address] [address] [place] BASIC METABOLI C PANEL (fasting ) GLUCOSE [MASS/VOLU ME] IN SERUM OR PLASMA 98 mg/dL 65 - 100 08/02 Specimen Type: SERUM No comment entered. Ordering Provider: ELLIE BRADSHAW Report Released Date/Time: Jun 26, 2024 10:28 AM Reporting Lab: [facility] [address] [address] Performing Lab: [facility] [address] [address] [place] BASIC METABOLI C PANEL (fasting ) SODIUM [MOLES/VOL UME] IN SERUM OR PLASMA 137 mmol/L 135 - 145 08/02 Specimen Type: SERUM No comment entered. Ordering Provider: ELLIE BRADSHAW Report Released Date/Time: Jun 26, 2024 10:28 AM Reporting Lab: [facility] [address] [address] Performing Lab: [facility] [address] [address] [employer] [place] BASIC METABOLI C PANEL (fasting ) POTASSIUM [MOLES/VOL UME] IN SERUM OR PLASMA 4.6 mmol/L 3.5 - 5.0 08/02 Specimen Type: SERUM No comment entered. Ordering Provider: ELLIE BRADSHAW Report Released Date/Time: Jun 26, 2024 10:28 AM Reporting Lab: [facility] [address] [address] Performing Lab: [facility] [address] [address] [employer] [place] BASIC METABOLI C PANEL (fasting ) CHLORIDE [MOLES/VOL UME] IN SERUM OR PLASMA 103 mmol/L 100 - 110 08/02 Specimen Type: SERUM No comment entered. Ordering Provider: ELLIE BRADSHAW Report Released Date/Time: Jun 26, 2024 10:28 AM Reporting Lab: [facility] [address] [address] Performing Lab: [facility] [address] [address] [employer] [place] BASIC METABOLI C PANEL (fasting ) CARBON DIOXIDE, TOTAL [MOLES/VOL UME] IN SERUM OR PLASMA 26 meq/L 20 - 30 08/02 Specimen Type: SERUM No comment entered. Ordering Provider: ELLIE BRADSHAW Report Released Date/Time: Jun 26, 2024 10:28 AM Reporting Lab: [facility] [address] [address] Performing Lab: [facility] [address] [address] [employer] [facility] [place] BASIC METABOLI C PANEL (fasting ) CALCIUM [MASS/VOLU ME] IN SERUM OR PLASMA 9.5 mg/dL 8.5 - 10.2 08/02 Specimen Type: SERUM No comment entered. Ordering Provider: ELLIE BRADSHAW Report Released Date/Time: Jun 26, 2024 10:28 AM Reporting Lab: [facility] [address] [address] Performing Lab: [facility] [address] [address] [employer] [facility] [place] BASIC METABOLI C PANEL (fasting ) CREATININE [MASS/VOLU ME] IN SERUM OR PLASMA 0.82 mg/dL 0.50 - 1.40 08/02 Specimen Type: SERUM No comment entered. Ordering Provider: ELLIE BARDSHAW Report Released Date/Time: Jun 26, 2024 10:28 AM Reporting Lab: [facility] [address] [address] Performing Lab: [facility] [address] [address] [employer] [place] BASIC METABOLI C PANEL (fasting ) GLOMERULAR FILTRATION RATE/1.73 SQ M.PREDICTE D [VOLUME RATE/AREA] IN SERUM, PLASMA OR BLOOD BY CREATININE -BASED FORMULA (CKD-EPI 2020) >90mL/mi n 60 08/02 Specimen Type: SERUM No comment entered. Ordering Provider: ELLIE BRADSHAW Report Released Date/Time: Jun 26, 2024 10:28 AM Reporting Lab: [address] [address] Performing Lab: [address] [address] [place] URIC ACID URATE [MASS/VOLU ME] IN SERUM OR PLASMA 6.1 mg/dL 3.5 - 7.2 08/02 Specimen Type: SERUM No comment entered. Ordering Provider: ELLIE BRADSHAW Report Released Date/Time: Jun 26, 2024 10:28 AM Reporting Lab: [address] [address] Performing Lab: [address] [address] [place] VITAMIN D (25-OH) 25-HYDROXY VITAMIN D3 [MASS/VOLU ME] IN SERUM OR PLASMA 19 ng/mL 20 - 50 08/02 L Specimen Type: SERUM No comment entered. Ordering Provider: ELLIE BRADSHAW Report Released Date/Time: Jun 26, 2024 10:28 AM Reporting Lab: [address] [address] Performing Lab: [address] [address] [place] HEMOGLOB IN A1C PANEL HEMOGLOBIN A1C/HEMOGL OBIN.TOTAL IN BLOOD BY HPLC 5.3 4.0 - 5.6 08/02 Specimen Type: BLOOD Comment: Values obtained from A1C measurement s can vary. For atypical A1C assays, a reported value of 7.0 could actually be between 6.72 and 7.28 if measured by a reference method. A reported value of 9.0 could actually be between 8.73 and 9.27. Ref: http://www. ngsp.org/[place] Pdata.asp Ordering Provider: ELLIE BRADSHAW Report Released Date/Time: Jun 26, 2024 10:28 AM Reporting Lab: [address] [address] Performing Lab: [facility] [place] [facility] [address] [address] AUBREY REBOLLAR TSH THYROTROPI N [UNITS/VOL UME] IN SERUM OR PLASMA 1.56 u[IU]/mL 0.35 - 5.00 08/02 Specimen Type: SERUM No comment entered. Ordering Provider: ELLIE BRADSHAW Report Released Date/Time: Jun 26, 2024 10:28 AM Reporting Lab: [facility] [place] [facility] [address] [address] Performing Lab: [facility] [place] [facility] [address] [address] AUBREY REBOLLAR Vital Signs Combined list of inpatient and outpatient Vital Signs from Department of Defense and Veterans Affairs, ranging from 12 months to all on record, depending upon the facility. Vital Sign Value Date Comments Source SYSTOLIC BLOOD PRESSURE 142 08/17/19 25 08:38:09 [facility] [place] [facility] DIASTOLIC BLOOD PRESSURE 87 025 08:38:09 [facility] [place] [facility] PULSE OXIMETRY 97 08/16/2024 08:38:09 [facility] PAIN 8 08/16/2024 08:38:09 [facility] [place] [facility] TEMPERATURE 98.3 08/16/2024 08:38:09 [facility] [place] [facility] PULSE 78 08/16/2024 08:38:09 [facility] RESPIRATION 16 08/16/2024 08:38:09 [facility] [place] [facility] SYSTOLIC BLOOD PRESSURE 126 08/11/19 25 09:38:58 [facility] DIASTOLIC BLOOD PRESSURE 87 025 09:38:58 [facility] PULSE OXIMETRY 98 08/10/2024 09:38:58 [facility] WEIGHT 270 08/10/2024 09:38:58 [facility] BMI 38 kg/m2 08/10/2024 09:38:58 [facility] PAIN 0 08/10/2024 09:38:58 [facility] HEIGHT 71 08/10/2024 09:38:58 [facility] TEMPERATURE 96.1 08/10/2024 09:38:58 [facility] PULSE 66 08/10/2024 09:38:58 [facility] RESPIRATION 20 08/10/2024 09:38:58 [facility] SYSTOLIC BLOOD PRESSURE 160 06/26/19 25 10:11:47 [facility] DIASTOLIC BLOOD PRESSURE 100 025 10:11:47 [facility] PULSE OXIMETRY 98 06/26/2024 10:11:47 [facility] WEIGHT 274 06/26/2024 10:11:47 [facility] BMI 38 kg/m2 06/26/2024 10:11:47 [facility] TEMPERATURE 97.2 06/26/2024 10:11:47 [facility] PULSE 65 06/26/2024 10:11:47 [facility] RESPIRATION 18 06/26/2024 10:11:47 [facility] SYSTOLIC BLOOD PRESSURE 174 06/13/19 16:04:31 [facility] DIASTOLIC BLOOD PRESSURE 108 025 16:04:31 [facility] PULSE OXIMETRY 97 06/13/2024 16:04:31 [facility] WEIGHT 280.8 06/13/2024 16:04:31 [facility] BMI 39 kg/m2 06/13/2024 16:04:31 [facility] PULSE 80 06/13/2024 16:04:31 [facility] RESPIRATION 18 06/13/2024 16:04:31 [facility] Encounters Combined list of: 1) Encounters from Department of Veterans Affairs facilities going backup to the last 18 months, not all VA inpatient encounters are included; 2) Encounters from the Department of Defense facilities going backup to 280 months. Location Location Details Encounter Type Encounter Number Reason For Visit Attending Provider ADM Date DC Date Status Disposition Source Kwesi young [facility]) OUTPATIENT [id number] [facility] KAUR 08/06 Released w/o Limitations Kwesi fernandes [facility] [id number] [facility] BETZYCANDI BECKWITH Roman 08/06 [facility] Kwesi Cope [facility] OUTPATIENT [id number] HLW JACQUI TURNER Hussien 09/03 [facility]ased w/o Limitations [facility] En[facility] [id number] 03/25 [facility] En[facility] [id number] 03/29 [facility] [id number] 03/30 [facility] En[facility] [id number] 04/13 [facility] [place] Outpatient Encounter [id number] 04/19 [place] [facility] En[facility] [id number] 05/26 [facility] En[facility] [id number] 06/09 [facility] En[facility] [id number] 06/16 [facility] En[facility] [id number] 07/13 [facility] [place] Out[place] En[place] [id number] 07/18 [place] [facility] En[facility] [id number] 11/14 [facility] En[facility] [id number] 11/14 [facility] En[facility] [id number] 11/18 [facility] En[facility] [id number] 11/22 [facility] En[facility] [id number] [facility] Encounter [id number] [facility] En[facility] [id number] 04/27 [facility] En[facility] [id number] 05/01 [facility] Encounter [id number] 06/07 [facility] Encounter [id number] 06/12 [facility] [place] CASE MANAGEMENT [id number] Diagnos is: ICD-10- CM F43.12 Post-tr aumatic stress disorde r, chronic MENCHACAKLYIE 06/13 [place] [facility] En[facility] [id number] 06/14 [facility] [place] O/P EST MOD 30 MIN [id number] Diagnos is: ICD-10- CM I10 Essenti al (primar y) hyperte nsLISSETTE Rubio N 06/26 [place] [facility] Encounter [id number] 07/10 [facility] En[facility] [id number] 07/25 [place] [facility] OFFICE O/P NEW HI 60 MIN [id number] Diagnos is: ICD-10- CM 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 [facility] 07/28 [facility] En[facility] [id number] 07/31 [facility] Encounter [id number] 08/02 [facility] HLTH BHV ASSMT/REAS SESSMENT [id number] Diagnos is: ICD-10- CM 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 LAURENCE Carr 08/02 [facility] Out[facility] En[facility] [id number] 08/09 [facility] [place] OFF[place] O/P EST LOW 20 MIN [id number] Diagnos is: ICD-10- CM M54.12 Radicul opathy, cervica l region YESSICA BRADSHAWEEN 08/10 [place] [facility] OFF[facility] O/P EST HI 40 MIN [id number] Diagnos is: ICD-10- CM M47.892 Other spondyl osis, cervica l region [facility] 08[facility]15 [facility] PH1 ASSMT&MGMT NQHP 21-30 [id number] Diagnos is: ICD-10- CM 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 LAURENCE RENDON 08/15 [facility] Outpatient Encounter [id number] 08/16 [facility] OFFICE O/P EST HI 40 MIN [id number] Diagnos is: ICD-10- CM M79.18 Myalgia , other site [facility] 08/16 [facility] Outpatient Encounter [id number] 08/22 [facility] OFFICE O/P EST HI 40 MIN [id number] Diagnos is: ICD-10- CM M54.12 Radicul opathy, cervica l region [facility] 08/25 [facility] CASE MANAGEMENT [id number] Diagnos is: ICD-10- CM 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 LAURENCE RENDON 09[facility]05 [facility] [place] [facility] SELF CARE MNGMENT TRAINING [id number] Diagnos is: ICD-10- CM R42 Dizzine ss and giddine ss INGRID BOSWELL LLY M 09/05 [facility] [place] PT EVAL MOD COMPLEX 30 MIN [id number] Diagnos is: ICD-10- CM M54.2 Cervica BALWINDER Oates 09/06 [place] [facility] Outpatient Encounter [id number] 09/06 [facility] CASE MANAGEMENT [id number] Diagnos is: ICD-10- CM 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 Procedure Procedure Type Code Date Perfomer Comments Sourc e CRUTCHES, FOREARM, INCLUDES CRUTCHES OF VARIOUS MATERIALS, ADJUSTABLE OR FIXED, PAIR, COMPLETE WITH TIPS AND HANDGRIPS 05/30/2001 [facility] MEDICAL NUTRITION THERAPY; GROUP (2 OR MORE INDIVIDUAL(S)), EACH 30 MINUTES 09/20/2003 [facility] MEDICAL NUTRITION THERAPY; GROUP (2 OR MORE INDIVIDUAL(S)), EACH 30 MINUTES 09/18/2003 [facility] MEDICAL NUTRITION THERAPY; GROUP (2 OR MORE INDIVIDUAL(S)), EACH 30 MINUTES 08/09/2003 [facility] MEDICAL NUTRITION THERAPY; GROUP (2 OR MORE INDIVIDUAL(S)), EACH 30 MINUTES 08/07/2003 [facility] INJECTION, KETOROLAC TROMETHAMINE, PER 15 MG 04/24/2003 D oD Social History Combined list of available smoking, tobacco, and other social history from Department of Defense and Veterans Affairs facilities. Social History Type Response Date Comment Source Tobacco smoking status CAIS OR-TOBACCO USE FORMER CIGARETTES 06/26/2024 [facility] History of tobacco use OR-TOBACCO NEVER USED OTHER TYPE 06/26/2024 [facility] History of tobacco use [facility]-TO[facility]ACCO FORMER USER 05/26/2022 [facility] History of tobacco use OR-TOBACCO FORMER USER 04/29/2021 [facility] History of tobacco use OR-TOBACCO FORMER USER 04/09/2020 [facility] History of tobacco use OR-TOBACCO QUIT < 1 YEAR 01/10/2020 [facility] 08/08/2018 [facility] History of tobacco use CURRENT SMOKER 08/06/2017 4 day [facility] History of tobacco use CURRENT SMOKER 11/12/2016 cutting back his decreasing on his own [facility] History of tobacco use CURRENT SMOKER 05/08/2016 is cutting back . Interested in tobacco cessation next visit. [facility] History of tobacco use QUIT TOBACCO USE 1-7 YEARS AGO 06/04/2015 stopped one month ago [facility] History of tobacco use V1-PT THINKING ABOUT QUIT TOBACCO USE 05/13/2015 [facility] History of tobacco use CURRENT SMOKER 01/27/2013 [facility] History of tobacco use CURRENT TOBACCO USER 02/03/2012 [facility] History of tobacco use V1-PT DECLINES TOBACCO CESSATION MEDS 08/24/2011 [facility] History of tobacco use CURRENT SMOKER 05/19/2011 pack a week [facility] History of tobacco use CURRENT SMOKER 05/05/2011 once in a while [facility] This section is an empty social history section. DoD Plan of Care List of future care activities from Department of Veterans Affairs facilities. Additional future care activities may be listed in the Assessment and Plan section. Date/Time Care Activity Care Activity Detail Facili ty 09/12/2024 AMBULATORY - MEDICINE AMBULATORY - MEDICI NE [facility] Advance Directives List of completed, amended, or rescinded Advance Directives on record at Department of Veterans Affairs facilities. An actual copy of the Directive is not included. Date Advance Directive Provider Source 03/09/2013 ADVANCE DIRECTIVE DISCUSSION JERAMY JACKMAN [facility]
--- OUTSIDE RECORDS SUMMARY | 2024-09-12 16:47 | XMS_ITS | Encounter Summary ---
Author Name [facility] Organization [facility] Address [address] [place] [address] Care Team Providers Care Direct Marketing Representative Name Role Phone ELLIE BRADSHAW Primary Care [...] Ewing's Name Patient's Relationship to Policy Ewing [facility] (MEDICAID) MEDICAID MEDIC AID Dec 30, 2012 MEDICAI D [id number] HARSHIL AL RISTOP PATIENT [facility] MEDICAID MEDICAID [place] ([place]) Dec 30, 2012 MEDICAI D [id number] HARSHIL AL RISTOP PATIENT Selected Encounter This section includes the information on record at ID for the Encounter. Date/Time Encounter Type Encounter Description Reason Provider Source Jun 13, 2024 03:30 PM CASE MANAGEMENT [facility] - [facility] ICD-10-CM F43.12 Post-traumatic stress disorder, PORSHA Singleton Encounter Template Text not used by [facility] Assessments - Encounter Diagnoses This section includes the primary and secondary diagnoses documented for the Encounter. Date/Time Primary/Secondary Diagnosis Diagnosis Name Provider Source Jun 13, 2024 04:27 PM PRIMARY Post-traumatic stress disorder, PORSHA Singleton Plan of Treatment: Future Appointments (+ 6 months) and Future Tests (+/- 45 days) The Plan of Treatment section includes future care activities [facility] the [facility] This section includes future appointments and future orders which are active, pending or scheduled. Future Appointments This section includes appointments that were scheduled to occur 6 months from the date of the Encounter, up to a maximum of 20 appointments. The data comes from all ID treatment facilities. Appointment Date/Time Appointment Type Appointme nt Facility Name Jun 26, 2024 10:00 AM [facility]ULATORY [facility]ICINE [facility] Jul 28, 2024 08:30 AM [facility]BUL[facility] Aug 09, 2024 11:30 AM [facility] Aug 10, 2024 09:30 AM [facility] Aug 15, 2024 10:30 AM AMBULATORY - [facility]IC[facility] Aug 16, 2024 09:00 AM AMBULATORY - [facility]IC[facility] Aug 22, 2024 10:00 AM [facility] Aug 25, 2024 11:00 AM AMBULATORY - REHAB MEDICIN [facility] Sep 05, 2024 02:00 PM AMBULATORY - [facility]AB [facility]IC[facility] Sep 06, 2024 11:00 AM AMBULATORY - [facility]AB [facility]ICIN [facility] Sep 12, 2024 02:30 PM [facility] Sep 13, 2024 10:00 AM AMBULATORY - REHAB MEDICIN [facility] [place] September 15, 2024 10:30 AM AMBULATORY - NONE [facility] September 18, 2024 11:00 AM AMBULATORY - REHAB MEDICIN E [place] September 19, 2024 02:00 PM [facility] September 22, 2024 09:00 AM AMBULATORY - REHAB MEDICIN E [place] September 25, 2024 09:00 AM AMBULATORY - REHAB MEDICIN E [place] October 02, 2024 09:00 AM AMBULATORY - REHAB MEDICIN E [place] October 10, 2024 10:00 AM AMBULATORY - REHAB MEDICIN E [place] October 11, 2024 01:00 PM AMBULATORY - PSYCHIATRY [facility] Active, Pending, and Scheduled Orders This section includes a listing of several types of active, pending, and scheduled orders, including clinic medications orders, diagnostic test orders, procedure orders and consult orders; where the start date of the order is 45 days before the date of the Encounter or 45 days after the date of theEncounter. The data comes from all ID treatment facilities. Test Date/Time Test Type Test Details Facility Name Jun 12, 2024 11:01 AM Consult Order PSYCHIATRI C MEDICATION [facility] OUTPT Cons Pile D[employer] [facility] Social History: Smoking Status (Most current) and Tobacco Use (All prior to encounter date) This section includes the most current, and the historical, smoking and tobacco- related health factors from the ID facility where the Encounter took place. Current Smoking Status This section includes the most current smoking, or tobacco-related health factor, from the ID facility where the Encounter took place. Date/Time Current Smoking Status Comment Damion ity May 26, 2022 11:30 AM VA-TOBACCO FORMER USER [place] Tobacco Use History This section includes a history of the smoking, or tobacco-related health factors, that were collected on or before the date of the Encounter. The data comes from the ID facility where the Encounter took place. Date/Time Smoking Status/Tobacco Use Comment F acility May 26, 2022 11:30 AM VA-TOBACCO QUIT 5 TO < 15 YRS [place] Apr 29, 2021 11:30 AM VA-TOBACCO FORMER USER [place] Apr 29, 2021 11:30 AM VA-TOBACCO QUIT 1 TO < 5 YRS [place] Apr 09, 2020 09:00 AM VA-TOBACCO FORMER USER [place] Apr 09, 2020 09:00 AM VA-TOBACCO QUIT < 1 YEAR [place] Jan 10, 2020 09:30 AM VA-TOBACCO FORMER USER [place] Jan 10, 2020 09:30 AM VA-TOBACCO QUIT < 1 YEAR [place] Aug 08, 2018 01:45 PM VA-TOBACCO USE > 1 5 LESS THAN 30 YEARS [place] Aug 08, 2018 01:45 PM VA-TOBACCO USE ADVICE [place] Aug 08, 2018 01:45 PM VA-TOBACCO 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 Interested in tobacco cessation next visit. [place] Jun 04, 2015 10:22 AM QUIT TOBACCO USE 1 -7 YEARS AGO stopped one month ago [place] May 13, 2015 08:27 AM V1-PT DECLINES REF TO TOBACCO CESS PRGM [place] May 13, 2015 08:27 AM V1-PT THINKING ABO UT QUIT TOBACCO USE [place] Advance Directives: All historical and current Section Date Range: From patient's date of to the date document was created. This section includes ALL of a patient's completed or amended [facility] Advance and Rescinded Directives. The entries below indicate that a directive exists for the patient, but an actual copy is not included with this document. The data comes from all ID facilities. Date Advance Directives Provider Source Mar 09, 2013 ADVANCE DIRECTIVE DISCUSSION BETTE JACKMAN [facility] Encounter Notes: All associated encounter notes This section contains the clinical notes associated to the Encounter. Date/Time Encounter Note(s) Provider Source Jun 13, 2024 04:27 PM ADDENDUM: LOCAL TITLE: Addendum STANDARD TITLE: ADDENDUM DATE OF NOTE: JUN 13, 2024@16:27:33 ENTRY DATE: JUN 13, 2024@16:27:34 AUTHOR: PORSHA YUONG EXP COSIGNER: URGENCY: STATUS: COMPLETED was seen today in the clinic and his BP was 174/108 and 177/117. He agreed to come back tomorrow to be seen in sick call for this. His is a RN, and will monitor him tonight. I will alert his PCP. /audrey/ PORSHA YOUNG Registered Nurse Signed: 06/13/2024 16:28 Receipt Acknowledged By: 06/14/2024 08:29 /audrey/ ELLIE BRADSHAW PA-C STAFF PHYSICIAN MILLED LUMBER GRADER --- Original Document --- 06/13/24 MENTAL HEALTH/NURSING INDIVIDUAL: F: Mental Health/Nursing individual SERVICE CONNECTED % - 100 Reason for visit: Medication renewal Diagnoses addressed:PTSD D: Active Problems Active problems - Computerized Problem List is the source for the followin. Benign hypertension 2. Ex-tobacco user 3. Herpes zoster ophthalmicus 4. Irritable bowel syndrome 5. Gastroesophageal reflux disease 6. Acute upper respiratory infection (SNOMED CT 98898252) 7. Headache disorder 8. Lactose intolerance 9. Overweight 10. Abnormal blood pressure (SNOMED CT 80018981) 11. Tendinitis 12. Opioid dependence in remission 13. Traumatic brain injury with brief loss of consciousness 14. Chronic post-traumatic stress disorder (SNOMED CT 663713502) Active Outpatient Medications (including Supplies): Pending Outpatient Medications Status 1) CLONIDINE HCL 0.1MG TAB TAKE ONE TABLET BY MOUTH AT BEDTIME PENDING Indication: PTSD/ANXIETY 2) MELATONIN 3MG CAP/TAB TAKE ONE CAPSULE/TABLET BY MOUTH AT PENDING BEDTIME NEEDED Indication: INSOMNIA 3) QUETIAPINE FUMARATE 25MG TAB TAKE ONE-HALF TABLET BY MOUTH PENDING AT BEDTIME NEEDED Indication: MOOD 4) SERTRALINE HCL 100MG TAB TAKE ONE TABLET BY MOUTH ONCE DAILY PENDING Indication: PTSD/MOOD Temp: 96.9 F [36.1 C] (01/10/2021 09:47) Pulse: 74 (06/13/2024 16:04) Respirations: 18 (06/13/2024 16:04) Blood Pressure: 177/117 (06/13/2024 16:04) Weights: Measurement DT WEIGHT LB(KG)[BMI] 06/13/2024 16:04 280.8(127.37)[39*] A/P: Appearance and Behavior: Well groomed, pleasant Oriented in all spheres: A&O x4 Eye Contact: Good Speech: WNL Mood/Affect: Stable, full range Concha/hypomania: None Anxiety: Appears anxious Thought content: Relevant to topic AH/VH:Denies Sleep: Good with seroquel 12.5 mg PTSD symptoms: Stable Substance use: -alcohol: Denies -Illicit drugs: In remission for almost 6 years from cocaine and heroin -Marijuana: Not addressed SI: Rhonda White is a 44 year old [employer] who served [phone]. 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 He is diagnosed with PTSD and is 100% service connected for this. He was a long time patient of Isidra Marie who retired from the clinic. She last saw him in December 2022, and continued his medications, except for bupropion which was d/c'd due to intolerability. He was started on this to help with distractability, as he was diagnosed with ADHD as a child and had been on stimulants. He is opposed to treatment of his ADHD due to his past drug abuse history. is taking care of his step-dad who is on hospice (along with his mother who is a nurse and other family members). This is very stressful for him. I took his vital signs today, and his BP was fairly elevated, though he said he had an energy drink prior to the appointment. He agrees to come back tomorrow to be seen in sick call. His is a RN and he agreed to tell her about his BP aswell. Stroke symptoms discussed with him. He has been stretching the medications Isidra Marie had prescribed for the last 6 months- taking less than prescribed, including having a stock that he had accumulated over the years. He ran out of sertraline 3 days ago, and is out of clonidine. He had been taking 100 mg of sertraline until 3 days ago, and said it was effective at this dose. He has been taking the quetiapine 12.5 mg at HS for sleep, and he said it also helps with calming him as well. He feels w/d symptoms from being off of the sertraline (pins and needles, sweating). He would like to re-start at 100 mg dose, since he feeels it was helping his mood adequately. He is out of clonidine, which he previously found helpful for anxiety and nightmares- he also used it to help with BP's in the past. He denied any suicidal thoughts. Denies taking any medications prescribed outside of the [facility]. He has an appointment to see PCP 06/26, but agrees to come into the sick call tomorrow to be seen for his BP. He has not been assigned a medication prescriber as of yet, but is aware he can call or stop in the [facility] should he need anything before he is assigned a provider. Dr. Roman joined us for the evaluation, and went over medications with him and side effects. He will restart sertraline 100 mg daily, and renew quetiapine, clonidine, and melatonin as well. He gave him a VCL card and explained how to access it should he need it. Future Clinic Visits 06/26/2024 10:00 CWM/SO/PACT 3 [facility] understands how to utilize the [facility] Crisis [facility] (9-8-8 option 1) and urged to call that number at any time if they have thoughts about suicide and,or to call 911 or go to nearest E.R. if they have suicidal thoughts. No barriers; Patient understands and agrees to current treatment plan. If has any questions, concerns, or changes in current health status they will call or come in to the VA. 30 minutes spent in patient care and education. /audrey/ PORSHA YOUNG Registered Nurse Signed: 06/13/2024 16:27 Receipt Acknowledged By: * AWAITING SIGNATURE * HARI ROMAN 06/13/2024 ADDENDUM STATUS: UNSIGNED You may not VIEW this UNSIGNED Addendum. PORSHA YOUNG Jun 13, 2024 04:06 PM MENTAL HEALTH NURS ING NOTE: LOCAL TITLE: MENTAL HEALTH/NURSING INDIVIDUAL STANDARD TITLE: MENTAL HEALTH NURSING NOTE DATE OF NOTE: JUN 13, 2024@16:06 ENTRY DATE: JUN 13, 2024@16:06:32 AUTHOR: PORSHA YOUNG EXP COSIGNER: URGENCY: STATUS: COMPLETED MENTAL HEALTH/NURSING INDIVIDUAL Has ADDENDA F: Mental Health/Nursing individual SERVICE CONNECTED % - 100 Reason for visit: Medication renewal Diagnoses addressed:PTSD D: Active Problems Active problems - Computerized Problem List is the source for the followin. Benign hypertension 2. Ex-tobacco user 3. Herpes zoster ophthalmicus 4. Irritable bowel syndrome 5. Gastroesophageal reflux disease 6. Acute upper respiratory infection (SNOMED CT 71612873) 7. Headache disorder 8. Lactose intolerance 9. Overweight 10. Abnormal blood pressure (SNOMED CT 65161455) 11. Tendinitis 12. Opioid dependence in remission 13. Traumatic brain injury with brief loss of consciousness 14. Chronic post-traumatic stress disorder (SNOMED CT 958721468) Active Outpatient Medications (including Supplies): Pending Outpatient Medications Status 1) CLONIDINE HCL 0.1MG TAB TAKE ONE TABLET BY MOUTH AT BEDTIME PENDING Indication: PTSD/ANXIETY 2) MELATONIN 3MG CAP/TAB TAKE ONE CAPSULE/TABLET BY MOUTH AT PENDING BEDTIME NEEDED Indication: INSOMNIA 3) QUETIAPINE FUMARATE 25MG TAB TAKE ONE-HALF TABLET BY MOUTH PENDING AT BEDTIME NEEDED Indication: MOOD 4) SERTRALINE HCL 100MG TAB TAKE ONE TABLET BY MOUTH ONCE DAILY PENDING Indication: PTSD/MOOD Temp: 96.9 F [36.1 C] (01/10/2021 09:47) Pulse: 74 (06/13/2024 16:04) Respirations: 18 (06/13/2024 16:04) Blood Pressure: 177/117 (06/13/2024 16:04) Weights: Measurement DT WEIGHT LB(KG)[BMI] 06/13/2024 16:04 280.8(127.37)[39*] A/P: Appearance and Behavior: Well groomed, pleasant Oriented in all spheres: A&O x4 Eye Contact: Good Speech: WNL Mood/Affect: Stable, full range Concha/hypomania: None Anxiety: Appears anxious Thought content: Relevant to topic AH/VH:Denies Sleep: Good with seroquel 12.5 mg PTSD symptoms: Stable Substance use: -alcohol: Denies -Illicit drugs: In remission for almost 6 years from cocaine and heroin -Marijuana: Not addressed SI: Rhonda White is a 44 year old [employer] who served [phone]. 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 He is diagnosed with PTSD and is 100% service connected for this. He was a long time patient of Isidra Marie who retired from the clinic. She last saw him in December 2022, and continued his medications, except for bupropion which was d/c'd due to intolerability. He was started on this to help with distractability, as he was diagnosed with ADHD as a child and had been on stimulants. He is opposed to treatment of his ADHD due to his past drug abuse history. is taking care of his step-dad who is on hospice (along with his mother who is a nurse and other family members). This is very stressful for him. I took his vital signs today, and his BP was fairly elevated, though he said he had an energy drink prior to the appointment. He agrees to come back tomorrow to be seen in sick call. His is a RN and he agreed to tell her about his BP aswell. Stroke symptoms discussed with him. He has been stretching the medications Isidra Marie had prescribed for the last 6 months- taking less than prescribed, including having a stock that he had accumulated over the years. He ran out of sertraline 3 days ago, and is out of clonidine. He had been taking 100 mg of sertraline until 3 days ago, and said it was effective at this dose. He has been taking the quetiapine 12.5 mg at for sleep, and he said it also helps with calming him as well. He feels w/d symptoms from being off of the sertraline (pins and needles, sweating). He would like to re-start at 100 mg dose, since he feeels it was helping his mood adequately. He is out of clonidine, which he previously found helpful for anxiety and nightmares- he also used it to help with BP's in the past. He denied any suicidal thoughts. Denies taking any medications prescribed outside of the [facility]. He has an appointment to see PCP 06/26, but agrees to come into the sick call tomorrow to be seen for his BP. He has not been assigned a medication prescriber as of yet, but is aware he can call or stop in the [facility] should he need anything before he is assigned a provider. Dr. Roman joined us for the evaluation, and went over medications with him and side effects. He will restart sertraline 100 mg daily, and renew quetiapine, clonidine, and melatonin as well. He gave him a VCL card and explained how to access it should he need it. Future Clinic Visits 06/26/2024 10:00 CWM/SO/PACT 3 [facility] [place] understands how to utilize the [facility] Crisis Line (9-8-8 option 1) and urged to call that number at any time if they have thoughts about suicide and,or to call 911 or go to nearest E.R. if they have suicidal thoughts. No barriers; Patient understands and agrees to current treatment plan. If has any questions, concerns, or changes in current health status they will call or come in to the VA. 30 minutes spent in patient care and education. /audrey/ PORSHA YOUNG Registered Nurse Signed: 06/13/2024 16:27 Receipt Acknowledged By: 06/14/2024 17:50 /es/ HARI ROMAN MD STAFF PSYCHIATRIST 06/13/2024 ADDENDUM STATUS: COMPLETED [place] was seen today in the clinic and his BP was 174/108 and 177/117. He agreed to come back tomorrow to be seen in sick call for this. His is a RN, and will monitor him tonight. I will alert his PCP. /audrey/ PORSHA YOUNG Registered Nurse Signed: 06/13/2024 16:28 Receipt Acknowledged By: 06/14/2024 08:29 /es/ ELLIE BRADSHAW PA-C STAFF PHYSICIAN MILLED LUMBER GRADER 06/13/2024 ADDENDUM STATUS: COMPLETED Above appreciated. Chart reviewed. Isidra Marie designated psychiatrists in this clinic to cover her patients for refills after she left the clinic. Isidra's last note reviewed, patient is due for the refill. Orders writen to cover until next psychiatric medication appointment in clinic, to be assigned For the purpose of the refills, I interviewed the patient with Porsha Young and also reviewed the case with Porsha. Agree with history given above by Porsha in her note Note that the patient reports abstaining from alcohol and drug abuse for many years Overall patient reports doing well with the medication, with improved PTSD symptoms. Denies recent depression. Denies suicidal and violent ideation. Affect brightens appropriately. Denies any history of psychotic symptoms. Thoughts are well-organized. No paranoid or delusional content presented. Cognitive exam grossly intact. Speech normal. The patient indicates that the psychiatric medications help significantly. He has stretched out the medications so that he had enough Zoloft to last at the 100 mg dose until 2 or 3 days ago. He would like to refill this today. He he feels that the the Zoloft 100 mg dose helped significantly for PTSD sx's and anxiety. He feels that he does not need dose increase. He also reports that the quetiapine at low-dose 12.5 mg nightly as needed has been helpful for calming and PTSD symptoms and insomnia. He would like to continue this low dose. He reports that the clonidine 0.1 mg at bedtime was helpful for PTSD symptoms and anxiety. He understands this is an off label use for clonidine, he would like to continue this. Risk of dizziness/syncope reviewed w pt -- pt states tolerated w/o side effects Patient also reports benefit from melatonin 3 mg nightly as needed insomnia, he would like to continue this. So the above medications written to cover until next appointment in clinic. He denies medication side effects. Denies daytime sedation. The discussion with patient about treatments including medications involved shared decision making. The patient was educated about the rationale and plan for the psychiatric medications. Medication instructions were reviewed with the patient. Alternatives to treatment were discussed with the patient. The side effect profile of the psychiatric medications was reviewed with the patient. This also included discussion of potential drug interactions associated with psychiatric medication. The patient discussed/verbalized back reasonable understanding of the medication, side effects, and the plan/instructions, and the patient asked good questions. The benefits of psychiatric medications outweigh risks for this patient. The patient consents to medication treatment. I asked the patient to call clinic or to come to open access if the patient does not like the effect of psychiatric medication or if has side effects with psychiatric medication. The side effect profile of the atypical antipsychotic medication was discussed with the patient. The risk of EPS, weight gain, metabolic syndrome (including risk of diabetes and hyperlipidemia), sedation, dizziness, orthostatic hypotension, falling, and TD with the atypical antipsychotic agent was reviewed with the patient. This included discussion with patient that TD is potentially irreversible. The pt verbalized reasonable understanding of the side effect profile of the atypical antipsychotic medication. The patient agrees to the medication. The benefits of treatment outweigh risks for this patient. The patient's primary care physician follows blood pressure, weights, lipids, glucose The patient has significantly elevated blood pressure and we advised going to the emergency room, but patient wants to come back and see primary care tomorrow for walk-in. He verbalized understanding that he is at risk for stroke or cardiac problem related to elevated BP and understands to go to the emergency room if he has any cva/cardiac symptoms. The pt is probably low risk for suicide or violence -- the patient denied suicidal and violent ideation, but the Veterans Crisis Line information and number were given to patient as a precaution. The patient also understands to call 911 or to go to ER in the event of an emergency. DX's: PTSD, h/o AHHD consult for psych med provider pending MH AIMS Testing: AIMS (Mental Health Instrument) The patient was evaluated for symptoms of tardive dyskinesia using the AIMS. Total score for items 1-7: 0 Medication Reconciliation: Outpatient: Has the patient been taking medications as documented in the EMLR? YES: The patient has been taking medications as documented in the EMLR. Essential Medication List for Review used to complete this medication reconciliation. INCLUDED IN THIS LIST: Alphabetical list of active outpatient prescriptions dispensed from this ID (local) and dispensed from another ID or DoD facility (remote) as well as [...] whether with a VA or non-VA provider. Suicide Screen: C-SSRS Screening [place]-Suicide Severity Rating Scale (C-SSRS Screener) 1. Over the past month, have you wished you were or wished you could go to sleep and not wake up? No 2. Over the past month, have you had any actual thoughts of killing yourself? No 3. Over the past month, have you been thinking about how you might do this? Response not required due to responses to other questions. 4. Over the past month, have you had these thoughts and had some intention of acting on them? Response not required due to responses to other questions. 5. Over the past month, have you started to work out or worked out the details of how to kill yourself? Response not required due to responses to other questions. 6. If yes, at any time in the past month did you intend to carry out this plan? Response not required due to responses to other questions. 7. In your lifetime, have you ever done anything, started to do anything, or prepared to do anything to end your life (for example, collected pills, obtained a gun, gave away valuables, went to the roof but didn't jump)? Yes -- see inactive flag info form 2012 8. If YES, was this within the past 3 months? No /es/ HARI ROMAN MD STAFF PSYCHIATRIST Signed: 06/14/2024 17:56 PORSHA YOUNG
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
--- OUTSIDE RECORDS SUMMARY | 2024-09-12 16:47 | XMS_ITS | Encounter Summary ---
Author Name [facility] [place] Address [address] [place] [address] Care Team Providers Care Larriman Helper Name Role Phone ELLIE BRADSHAW Primary Care [...] Ewing's Name Patient's Relationship to Policy [facility]wing [facility] (MEDICAID) MEDICAID MEDIC AID Dec 30, 2012 MEDICAI D [id number] HARSHIL AL RISTOP PATIENT [facility] [facility] [facility] ([place]) Dec 30, 2012 MEDICAI D [id number] HARSHIL AL RISTOP PATIENT Selected Encounter This section includes the information on record at [place] for the Encounter. Date/Time Encounter Type Encounter Description Reason Provider Source Sep 06, 2024 11:00 AM PT EVAL MOD COMPLEX 30 MIN PHYSICAL THERAPY ICD-10-CM M54.2 CervicalDAGO Villa Della Encounter Template Text not used by [facility] Assessments - Encounter Diagnoses This section includes the primary and secondary diagnoses documented for the Encounter. Date/Time Primary/Secondary Diagnosis Diagnosis Name Provider Source Sep 06, 2024 12:06 PM PRIMARY CervicalDAGO Villa Plan of Treatment: Future Appointments (+ 6 months) and Future Tests (+/- 45 days) The Plan of Treatment section includes future care activities for the patient [facility] [place] [facility] This section includes future appointments and future orders which are active, pending or scheduled. Future Appointments This section includes appointments that were scheduled to occur 6 months from the date of the Encounter, up to a maximum of 20 appointments. The data comes from all [place] treatment [facility]. Appointment Date/Time Appointment Type Appointme nt Facility Name Sep 12, 2024 02:30 PM AMBULATORY [facility] Sep 13, 2024 10:00 AM AMBULATORY - REHAB MEDICIN E [place] September 15, 2024 10:30 AM AMBULATORY - NONE [facility] September 18, 2024 11:00 AM AMBULATORY - REH[place] MEDICIN [place] September 19, 2024 02:00 PM AMBULATORY - MEDICINE [facility] September 22, 2024 09:00 AM AMBULATORY - REHAB MEDICIN E [place] September 25, 2024 09:00 AM AMBULATORY - REHAB MEDICIN E [place] October 02, 2024 09:00 AM AMBULATORY - REHAB MEDICIN E [place] October 10, 2024 10:00 AM AMBULATORY - REHAB MEDICIN E [place] October 11, 2024 01:00 PM AMBULATORY - PSYCHIATRY [facility] October 13, 2024 08:30 AM AMBULATORY - [facility]AB MEDICIN E [facility] Oct 27, 2024 10:00 AM [facility] Active, Pending, and Scheduled Orders [...] The data comes from all [place] treatment [facility]. Test Date/Time Test Type Test Details Facility Name Jul 30, 2024 07:39 PM Consult Order TBI OPTOME TRY OUTPT Cons Explosive Ordnance Manager's Choice [facility] Aug 10, 2024 09:42 AM Consult Order COMMUNITY CARE-NEUROSURGERY Cons Explosive Ordnance Manager's Choice [place] Aug 18, 2024 11:56 AM Consult Order COMMUNITY CARE-DENTAL GENERAL Cons Explosive Ordnance Manager's Choice [facility] Aug 18, 2024 11:56 AM Consult Order COMMUNITY CARE-DENTAL GENERAL Cons Explosive Ordnance Manager's Choice [facility] Aug 18, 2024 11:56 AM Consult Order COMMUNITY CARE-DENTAL SPECIALTY Cons Explosive Ordnance Manager's Choice [facility] Aug 25, 2024 12:12 PM Consult Order TBI SPEECH OUTPT Cons Explosive Ordnance Manager's Choice [facility] Aug 25, 2024 12:26 PM Consult Order COMMUNITY CARE-PAIN MANAGEMENT Cons Explosive Ordnance Manager's Choice [facility] Sep 05, 2024 04:22 PM Consult Order TBI OPTOME TRY OUTPT Cons Explosive Ordnance Manager's Choice [facility] Sep 12, 2024 09:54 AM Consult Order BIOFEEDBAC K FOR PAIN/[facility] (OUTPT) Cons Explosive Ordnance Manager[facility] Social History: Smoking Status (Most current) [...] place. Date/Time Current Smoking Status Comment Damion swift Jun 26, 2024 10:00 AM VA-TOBACCO USE FORMER CIGARETTES [place] Tobacco Use History This section includes a history of the smoking, or tobacco-related health factors, that were collected on or before the date of the Encounter. The data comes from the [place] facility where the Encounter took place. Date/Time Smoking Status/Tobacco Use Comment F [email or web address] Jun 26, 2024 10:00 AM VA-TOBACCO USE FOR DEBRA CIGARETTES [place] May 26, 2022 11:30 AM VA-TOBACCO FORMER USER [place] May 26, 2022 11:30 AM VA-TOBACCO QUIT 5 TO < 15 YRS [place] Apr 29, 2021 11:30 AM VA-TOBACCO FORMER USER [place] Apr 29, 2021 11:30 AM VA-TOBACCO QUIT 1 TO < 5 YRS [place] Apr 09, 2020 09:00 AM VA-TOBACCO FORMER USER [place] Apr 09, 2020 09:00 AM VA-TOBACCO QUIT < 1 YEAR [place] Jan 10, 2020 09:30 AM VA-TOBACCO FORMER USER [place] Jan 10, 2020 09:30 AM VA-TOBACCO QUIT < 1 YEAR [place] Aug 08, 2018 01:45 PM VA-TOBACCO USE > 1 5 LESS THAN 30 YEARS [place] Aug 08, 2018 01:45 PM VA-TOBACCO USE ADVICE [place] Aug 08, 2018 01:45 PM 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 Interested in tobacco cessation next visit. [place] Jun 04, 2015 10:22 AM QUIT TOBACCO USE 1 -7 YEARS AGO stopped one month ago [place] May 13, 2015 08:27 AM V1-PT DECLINES REF TO TOBACCO CESS PRGM [place] May 13, 2015 08:27 AM V1-PT THINKING ABO UT QUIT TOBACCO USE [place] Advance Directives: All historical and current Section [...] 09, 2013 ADVANCE DIRECTIVE DISCUSSION BETTE JACKMAN [place] [facility] Encounter Notes: All associated encounter notes This section contains the clinical notes associated to the Encounter. Date/Time Encounter Note(s) Provider Source Sep 06, 2024 10:55 AM PHYSICAL THERAPY C ONSULT: LOCAL TITLE: PHYSICAL THERAPY CONSULT STANDARD TITLE: PHYSICAL THERAPY CONSULT DATE OF NOTE: SEP 06, 2024@10:55 ENTRY DATE: SEP 06, 2024@10:55:49 AUTHOR: DAGO HUI COSIGNER: URGENCY: STATUS: COMPLETED Initial Evaluation date: 4/23/25 Progress Note Date: 10/06/24 Treatment #: eval Treatment time: 52 Diagnosis: Cervicalgia(ICD-10-CM M54.2) Provider: HARISH ALFONSO PT Treatment Precautions: Patient identified by full name and date of Vitals: HR: 72 BP: 162/79 SUBJECTIVE: History of Current injury: Patient states they were [place] cruise [place] and notes they hit the back of their head and neck and notes they had a fairly sizable lump on the back of their head. Notes they got a concussion and had a head CT which was clear. Notes they were trying to stretch their neck earlier this month and noted worsening neck pain. Notes this pain has been severe, has gone to the ED due to this pain. Notes they have been prescribed prednisone and gabapentin which have not helped much with the pain. Patient states their pain is primarily located in the upper portion of their neck centrally. Notes these symptoms started after they hit their head and neck and notes these symptoms have worsened over time. Patient endorses some burning in the R lateal forearm and numbness/tingling in digits 1/2 R hand. Notes they got a cervical MRI. Notes they have a neurosrugical consult next Wednesday. Notes a hx of a C3 fracture in 2009 and skull fracture. Also endorses a history of multiple head injuries in the past as well. Patient states primary aggravating factors include stress, prolonged driving, turning/moving their head. 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[employer], [address] [employer] Patient Goal: figure out how to alleviate their pain and avoid having to take more meds and avoid surgery Number of days per week with pain: 11/20 SANE report Please rate your ability to use your injured area on a 0% to 100% scale, with 0% being unable to use the injured area and 100% being normal use of injured area in your daily activity: OBJECTIVE: Red flags: Recent Trauma Age (50+) Hx of Cancer Fever/chills/night sweats Unexplained weight loss Recent infection Immunosuppression Night pain Saddle anesthesia Bowel/bladder dysfunction LE neurological deficit Psychosocial flags: mental health dx entrenched/unhelpful beliefs about pain clinically relevant catastrophization signs of kinesiophobia Imaging findings: Cervical MRI dated 08/02/2024. There are findings [...] severe right and moderate left foraminal stenosis. Posture: forward head, rounded shoulders Neuro: UE Neuro Screen: (R) (L) Reflexes: (0, 1, 2, 3, 4) C7 Triceps 2 2 C6 BR 2 2 C5 Biceps 2 2 Myotomes: See MMT Dermatomes: (N=Normal, I=Impaired) C5 Radial N N C6 Thumb I N C7 Middle N N C8 Pinkie N N T1 Ulnar N N According to Hank et al,[18] selected combinations of the following clinical findings are effective in ruling out and ruling in cervical spine myelopathy. Combinations of three of five or four of five of these tests enable post-test probability of the condition to 9499%: NEGATIVE 1. Gait deviation 2. Hoffmanns test 3. Inverted supinator sign 4. Babinski sign 5. Age 45 years or older Cervical ROM Flexion(60-90): 35 Extension: 35* Right SB: 15* Left SB: 15 Right Rotation: 50 Left Rotation: 50 Cervical Strength:(_/5) Flexion: Extension: Right SB: Left SB: Right Rotation: Left Rotation: Deep neck flexor endurance test Performing the Test: Tuck patients chin in and lift off table 1 inch. The examiner looks for substitution of the platysma or SCM muscle. Normal Values: Men: 38.9 seconds, Women: 29.4 seconds SCORE: KOMAL Shoulder Strength:(_/5) Right Left Flexion: 3+* 4* Abduction: 3+* 4* Scaption: 3+* 4* Extension: Internal Rot: 3+* 4* External Rot: 3+* 4* Elbow flexion 3+* 4* Elbow extension 3+ * 4* Wrist flexion 3+ * 4* Wrist extension 3+* 4* Thumb extension 3+* 4* Finger abduction 4-* 4* Finger adduction 4-* 4* Rhomboids Mid trap Low trap COmments: all MMT appears limited by pain Cervical Special Tests Right Left Spurlings compression (+) (-) (Sn .50 Sp .90) Distraction (+) (-) (Sn .44 Sp .90) Sharps-Gill (-) (-) (Sn .69 Sp .96) Alar ligament test (-) (-) Clinical prediction rule (+) (-) 3 positive signs = Sn .39 Sp .94 for radiculopathy Less 60 deg cervical rotation to involved side Positive ULTT A Positive distraction Positive Spurlings test Palpation: max decreased soft tissue mobility R UT/levator, max TTP, significant muscle guarding Joint mobility: unable to assess secondary to pain, however max TTP over C6/7 movement segment Interventions: Therapeutic Exercise: Mins: Manual therapy: Mins: Neuro re-ed: Mins: Other: Mins: Mechanical Traction: Mins:12 3 steps up, 3 steps down 12lb min, 17lb max, 12mins [x] contraindication screen completed prior to modality [x] skin intact pre/post modality Access Code: [email or web address] URL: [email or web address] Date: 09/06/2024 Prepared by: Dago Hui Exercises - Seated Cervical Retraction - 1-2 x daily - 7 x weekly - 2 sets - 10 reps - 2-3 hold - Seated Scapular Retraction - 1-2 x daily - 7 x weekly - 2 sets - 10 reps - 2-3 hold Patient education: Mins: 10 Discussed potential etiology of symptoms with patient including potential structures involved and how this relates to exercises prescribed and POC discussing frequency and duration of services to be provided with patient verbalizing good understanding and agreement with POC. Provided written HEP to patient with therex from today reviewing proper form sets reps and frequency and safety precautions with patient verbalizing and demonstrating good understanding in clinic. Discussed the anatomy of the cervical spine, meaning of the positive findings today, best practice for treatment. ASSESSMENT: Patient is a 44yo seen for physical therapy evaluation following referral for Cervicalgia(ICD-10-CM M54.2). PMH significant for: 1. Benign hypertension 2. Ex-tobacco user 3. Herpes zoster ophthalmicus 4. Irritable bowel syndrome 5. Gastroesophageal reflux disease 6. Acute upper respiratory infection 7. Headache disorder 8. Lactose intolerance 9. Overweight 10. Abnormal blood pressure 11. Tendinitis 12. Opioid dependence in remission 13. Traumatic brain injury with brief loss of consciousness 14. Chronic post-traumatic stress disorder Patient presents with primary complaint of central neck pain and R forearm burning and numbness/tingling in digits 1/2 since a head/neck injury in April 2024 with acute worsening of symptoms in the beginning of August after trying to stretch their neck. Pain rated 5/10 at current and at best, 10/10 at worst on NPRS. Primary aggravating factors include stress, prolonged driving, turning/moving their head. On physical assessment, patient primary symptoms reproduced with cervical extension and R side bending, spurling compression, + distraction test. Additional impairments that may contribute to condition include impaired posture forward head rounded shoulders, impaired periscapular and DNF strength, impaired pec flexibility. Based on patient hx and findings of assessment, symptoms appear consistent with MRI findings with sensory changes noted in C6/7 distribution and significant tenderness with palpation ove rthe C6/7 movement segment. Patient with good improvement in symptoms with distraction test so trialed mechanical cervical traction today keeping time and weight of pull conservative. Patient noting their pain levels went from a 5/10 to a 3/10 while traction was applied. Will plan to continue this intervention during subsequent visits reinforcing with gentle postural corrective exercises and gentle cervical ROM as tolerated. Patient reports these symptoms impact their ability to complete their normal daily tasks like stress, prolonged driving, turning/moving their head. Patient requires skilled physical therapy services in order to address these impairments ad activity limitations and to achieve patient goal of figure out how to alleviate their pain and avoid having to take more meds and avoid surgery . GOALS: in 4-6weeks, patient will demonstrate: consistent carryover of HEP 5/7 days per week with patient able to independently teach back 75% of exercises 2pt decrease in pain level at worst to improve patient ability to complete most symptomatic tasks decrease in total days with pain by 2 days to improve patient QOL 10deg improvement in cervical extension ROM 10deg improvement in cervical R side bend ROM 20deg improvement in cervical extension ROM 20deg improvement in cervical R side bend ROM DNF endurance test 15s DNF endurance test 38s to meet norm values centralization of symptoms PLAN: Discussed POC with patient who verbalizes agreement with skilled PT services focusing on mechanical cervical traction, postural corrective exercises, improving UE flexibility, DNF and periscapular strengthening, HEP teaching and progression [x]Low impact cardio: [x]Nustep []Recumbent bike []Recumbent elliptical [x]UBE [x]Manual: [x]STM/DTM []METs/SCS [x]IASTM [x]Joint mobilizations [x]Therex: [x]Progressive UQ [x]Progressive Core []Progressive LQ [x]UQ flex [] Lumbar flex []LQ flex [x]Foam rolling []Proprioception []Neuro Re-education: []Static []Dynamic []Dual-Task [x]Education: [x]Posture []Ergonomics [x]Bodymechanics [x]Self-care strategies []PNE []Modalities(PRN): []Heat/Ice []Estim/Tens []Mechanical traction []K-tape [] Biofreeze /es/ DAGO HUI PT, DPT PHYSICAL THERAPIST Signed: 09/06/2024 12:08 DAGO HUIFIELD
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
== END ==
PROVIDERS: PCP Family Medicine; Visit Provider Physician Assistant
DX: M54.12 Radiculopathy, cervical region (principal)
CPT/HCPCS: 99204

== ENCOUNTER 2024-09-20 15:10 | Outpatient (AMB) | payer OTHER, SELFPAY ==
--- NOTE | 2024-09-20 15:22 | HO.SPINEOV ---
Intake Visit Reasons: Meet Intake Note: Mr. Thompson is here today to meet Dr. Herrera. Public Aid Eligibility Assistant Required: No Allergies doxycycline Allergy (Severe, Verified 09/20/24 15:22) Rash From CEFTIN Allergy (Severe, Uncoded 09/12/24 14:46) Rash Assessment & Plan Assessment & Plan (1) Cervical radiculopathy: Code(s): M54.12 - Radiculopathy, cervical region Category: Medical Plan On 09/20/2024 I saw for preoperative visit Christopher Thompson. He is scheduled to undergo a total disc arthroplasty C5-6 next week for cervical radiculopathy. All questions were answered. Joby Herrera MD, PhD Spine Fellowship Trained Neurosurgeon Director, [facility] Coding Level of Care Code Est Pt Level 2 (13956) Diagnoses Cervical radiculopathy M54.12
--- OUTSIDE RECORDS SUMMARY | 2024-09-20 16:09 | XMS_ITS | Continuity of Care Document ---
Author Organization [facility] Address [address] [place], [place] [address]he[address], [address] [place] [address]- Care Team Providers Care Roll Off Driver Name Role Phone Delroy RODRIGUEZ, Wyatt Hull Primary Care Physician [phone] Encounter [facility] Date(s): 08/17/24 - 09/16/[address] [place], [place] [address] Referring Physician: Terri Lizarraga Encounter Type: Triage Allergies, Adverse Reactions, Alerts Substance Criticality Severity Reaction Reaction Severity Status doxycycline hives Active Ceftin RASH Active Immunizations Given and Recorded Vaccine Date Status Refusal Reason tetanus/diphtheria/pertussis, acel(Tdap) 11/16/14 Given diphtheria-tetanus toxoids (DT) 09/10/03 Given Medications baclofen 10 mg oral tablet 5 mg, By Mouth, 3 times a day, # 42 tablet, Refills 0, Tot. Refills 0, Maintenance, 12/12/17 9:26:15AM EDT, Route to Pharmacy Electronically, [facility] Start Date: 12/12/17 Stop Date: 12/26/17 Status: Ordered Quantity: 42.0 Unit: tablet Repeat number: 1 Clonidine 0 Refills, Maintenance, 03/07/20 10:41:00 AM EDT Start Date: 03/07/20 Status: Ordered Repeat number: 1 dicyclomine 10 mg oral capsule 2 capsule = 20 mg, By Mouth, 4 times a day, 0 Refills, Maintenance, 03/07/20 10:43:00 AM EDT Start Date: 03/07/20 Status: Ordered Repeat number: 1 Dorzolamide 2% Ophth 1 drops, Eye, Left, 2 times a day with meals, 0 Refills, Maintenance, 12/12/17 9:27:47 AM EDT, OphthSolution Start Date: 12/12/17 Status: Ordered Repeat number: 1 gabapentin 300 mg oral capsule 300 mg, 1, capsule, By Mouth, 3 times a day, PRN, # 15 capsule, Refills 0, Tot. Refills 0, Maintenance, Pain , Severe, 08/21/24 1:21:00 PM EDT, Route to Pharmacy Electronically, [id number], Partial fill upon patient request if the prescription is for a schedule II opioid drug., 183, cm, 08/21/24 11:30:00 EDT, Height, 121.6, kg, 08/21/24 11:30:00 EDT, Dry Weight Start Date: 08/21/24 Stop Date: 08/26/24 Status: Ordered Quantity: 15.0 Unit: capsule Repeat number: 1 Golytely - oral powder for reconstitution See Instructions, as directed, # 1 each, 0 Refills, Maintenance, 06/10/20 10:01:00 AM EST, [facility] #[id number], Partial fill upon patient request if the prescription is for a schedule II opioid drug., as directed, 180, cm, 03/07/20 10:38:00 EDT, Height Start Date: 06/10/20 Status: Ordered Quantity: 1.0 Unit: each Repeat number: 1 melatonin 5 mg oral tablet 1 tablet = 5 mg, By Mouth, Daily at bedtime, PRN for insomnia, # 60 tablet, 0 Refills, Maintenance,01/28/16 12:44:03 PM EDT, Tablet Start Date: 01/28/16 Status: Ordered Quantity: 60.0 Unit: tablet Repeat number: 1 prazosin 2 mg oral capsule 1 capsule = 2 mg, By Mouth, Daily at bedtime, # 30 capsule, 5 Refills, Maintenance, 12/12/17 9:25:02AM EDT, Capsule, [facility] Start Date: 12/12/17 Stop Date: 06/10/18 Status: Ordered Quantity: 30.0 Unit: capsule Repeat number: 6 PrednisoLONE Acetate 1% Ophth 2 drops, Eye, Left, 3 times a day, 0 Refills, Maintenance, 12/12/17 9:27:18 AM EDT, Ophth Suspension Start Date: 12/12/17 Status: Ordered Repeat number: 1 predniSONE 10 mg oral tablet See Instructions, 3 tablet By Mouth Daily for 3 days then 2 tablets by mouth daily for 3 days then 1 tablet mouth daily for 3 days, # 18 tablet, 0 Refills, Maintenance, 08/21/24 1:21:00 PM EDT, Tablet,[facility] #[id number], Partial fill upon patient request if the prescription is for a schedule II opioid drug., 183, cm, 08/21/24 11:30:00 EDT, Height, 121.6, kg, 08/21/24 11:30:00 EDT, Dry Weight Start Date: 08/21/24 Status: Ordered Quantity: 18.0 Unit: tablet Repeat number: 1 ProAir HFA 90 mcg/inh inhalation aerosol with adapter 1, puffs, Inhalation, Every 6 hours, PRN, # 8.5 Gm, Refills 0, Maintenance, 12/08/17 8:13:03 AM EDT,Aerosol Start Date: 12/08/17 Status: Ordered Quantity: 8.5 Unit: g Repeat number: 1 Reglan 5 mg oral tablet 1 tablet = 5 mg, By Mouth, 3 times a day before meals and bedtime, 0 Refills, Maintenance, 03/07/2010:42:00 AM EDT Start Date: 03/07/20 Status: Ordered Repeat number: 1 Timolol 0.25% Ophth 1, drops, Eye, Left, 2 times a day, Refills 0, Maintenance, 12/12/17 9:27:26 AM EDT, Ophth Solution Start Date: 12/12/17 Status: Ordered Repeat number: 1 Zoloft 100 mg oral tablet 1 tablet = 100 mg, By Mouth, Daily, 0 Refills, Maintenance, 08/16/17 9:46:43 AM EDT Start Date: 08/16/17 Status: Ordered Repeat number: 1 Problem List Condition Confirmation Course Effective Dates Status Health St atus Informant Asthma Confirmed Active Attention deficit disorder Confirmed Active Breast lump present Confirmed Active Hypertension Confirmed Active Right groin pain Confirmed Active Reflux esophagitis Confirmed Active Severe obesity (BMI 35.0-39.9) with comorbidity Confirmed Active Social History Social History Type Response Smoking Status 5-9 cigarettes (betw een 1/4 to 1/2 pack)/day in last 30 days entered on: 04/24/24 Sex Sex Representation Male (finding) Patient Care team information Care Team Personnel Name: Jenny RN, Chiquita Position: S RN Member Role: Primary Care Nurse Name: Delroy RODRIGUEZ , Wyatt Hull Position: Reference Physician Member Role: PCP Address: [address] [place] [address] Telecom: Care Team Related Persons Name: CALLY GE Name: SHANE GE Insurance Providers Guarantor name: SHIRIN GE Health Plan Information #: 1 Payer: [employer] [place] Member Number: NA Policy Number: NA Group Number: NA Health Plan Information #: 2 Payer: UMR [id number] Member Number: NA Policy Number: NA Group Number: NA Health Plan Information #: 3 Payer: HMO BLUE IN NETWORK Member Number: NA Policy Number: NA Group Number: NA Health Plan Information #: 4 Payer: HNE FF NON BHP HMO Member Number: NA Policy Number: NA Group Number: NA
--- OUTSIDE RECORDS SUMMARY | 2024-09-20 16:09 | XMS_ITS ---
Author Name [facility] Address [address] [place] [address] Care Team Providers Care Registered Associate Name Role Phone ELLIE BRADSHAW Primary Care [...] Ewing's Name Patient's Relationship to Policy Ewing [facility] (MEDICAID) MEDICAID MEDIC AID Dec 30, 2012 MEDICAI D [id number] HARSHIL AL RISTOP PATIENT [facility]ID [facility] [place] Dec 30, 2012 MEDICAI D [id number] HARSHIL AL PATIENT Selected Encounter This section includes the information on record at [place] for the Encounter. Date/Time Encounter Type Encounter Description Reason Pro vider Source September 18, 2024 03:05 PM Outpatient Encounter PHYSICAL THERAPY IHE Encounter Template Text not used by [...] 20 appointments. The data comes from all [place] treatment facilities. Appointment Date/Time Appointment Type Appointme nt Facility Name September 19, 2024 02:00 PM [facility]ULATORY [facility] September 22, 2024 09:00 AM AMBULATORY - [facility] [place] September 25, 2024 09:00 AM AMBULATORY - [facility] [place] October 02, 2024 09:00 AM AMBULATORY - [facility] [place] October 10, 2024 10:00 AM AMBULATORY [facility] [place] October 11, 2024 01:00 PM AMBULATORY - PS[facility]CHIATRY [facility] October 13, 2024 08:30 AM AMBULAT[facility] Oct 27, 2024 10:00 AM AMBULATORY - [facility]AB [facility]ICIN [facility] Active, Pending, and Scheduled Orders This section includes a listing of several types of active, pending, and scheduled orders, including clinic medications orders, diagnostic test orders, procedure orders and consult orders; where the start date of the order is 45 days before the date of the Encounter or 45 days after the date of theEncounter. The data comes from all [place] treatment facilities. Test Date/Time Test Type Test Details Facility Name Aug 10, 2024 09:42 AM Consult Order COMMUNITY CARE-NEUROSURGERY [employer] [facility] Choice [place] Aug 18, 2024 11:56 AM Consult Order COMMUNITY CARE-DENTAL GENERAL [facility] Clerk[facility] Aug 18, 2024 11:56 AM Consult Order COMMUNITY CARE-DENTAL GENERAL Cons Drivers[facility] Cash Clerk's Choice [facility] Aug 18, 2024 11:56 AM Consult Order COMMUNITY CARE-DENTAL SPECIALTY [facility] [employer] [employer] Clerk's Choice [facility] Aug 25, 2024 12:12 PM Consult Order TBI SPEECH OUTPT [facility] [employer] [employer] Clerk's Choice [facility] Aug 25, 2024 12:26 PM Consult Order COMMUNITY CARE-PAIN MANAGEMENT [employer] Clerk's Choice [facility] Sep 12, 2024 09:54 AM Consult Order BIOFEEDBAC K FOR PAIN/[facility] (OUTPT) [facility] D[facility] Cash Clerk[facility] Choice [facility] Social History: Smoking Status (Most current) and Tobacco Use (All prior to encounter date) This section includes the most current, and the historical, smoking and tobacco- related health factors from the [place] facility where the Encounter took place. Current Smoking Status This section includes the most current smoking, or tobacco-related health factor, from the [place] facility where the Encounter took place. Date/Time Current Smoking Status Comment Facil it September 15, 2024 01:01 PM VA-TOBACCO USE STEPHANIE E DAYS CIGARETTES [facility] Tobacco Use History This section includes a history of the smoking, or tobacco-related health factors, that were collected on or before the date of the Encounter. The data comes from the [place] facility where the Encounter took place. Date/Time Smoking Status/Tobac co Use Comment Facility September 15, 2024 01:01 PM VA-TOBACCO USE SOME DAYS CIGARETTES [facility] Jan 27, 2013 01:11 PM CURRENT SMOKER [facility] Jan 27, 2013 01:11 PM V1-PT DECLINES REF TO TOBACCO CESS PRGM [facility] Jan 27, 2013 01:11 PM V1-PT DECLINES TOBACCO CESSATION MEDS [facility] Jan 27, 2013 01:11 PM V1-PT NOT INTERESTED IN QUIT TOBACCO USE [facility] Aug 24, 2011 03:03 PM V1-PT DECLINES REF TO TOBACCO CESS PRGM [facility] Aug 24, 2011 03:03 PM V1-PT DECLINES TOBACCO CESSATION MEDS [facility] Aug 24, 2011 03:03 PM V1-PT NOT INTERESTED IN QUIT TOBACCO USE [facility] May 19, 2011 02:05 PM CURRENT SMOKER pack a week [facility] May 05, 2011 10:41 AM CURRENT SMOKER once in a while [facility] Advance Directives: All historical and current Section Date Range: From patient's date of to the date document was created. This section includes ALL of a patient's completed or amended [place] Advance and Rescinded Directives. The entries below indicate that a directive exists for the patient, but an actual copy is not included with this document. The data comes from all [place] facilities. Date Advance Directives Provider Source Mar 09, 2013 ADVANCE DIRECTIVE DISCUSSION [place] [facility] Encounter Notes: All associated encounter notes This section contains the clinical notes associated to the Encounter. Date/Time Encounter Note(s) Provider Source September 18, 2024 03:05 PM CLERICAL NOTE: LOCAL TITLE: APPOINTMENT NO SHOW STANDARD TITLE: CLERICAL NOTE DATE OF NOTE: SEPTEMBER 18, 2024@15:05 ENTRY DATE: SEPTEMBER 18, 2024@15:05:07 AUTHOR: ZOHAIB MONTALVO COSIGNER: URGENCY: STATUS: COMPLETED Patient Name: SHIRIN AL Patient SSN: [id number] Date and time of Appointment No show : 09/18/24 15:05 PATIENT PHONE - PHONE NUMBER [[email or web address]] - Patient's medical record was reviewed. 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
--- OUTSIDE RECORDS SUMMARY | 2024-09-20 16:09 | XMS_ITS | Continuity of Care Document ---
Author Name [facility] Organization [facility] Care Team Providers Care Human Development Professor Name Role Phone [facility] Unavailable Unavailable Problems Combined list of problems from Department of Defense and Veterans Affairs facilities. It does not include entries that were removed or entered in error. Problem Status Onset Date Problem Type Date of Resolution Comments Source Patient Counseling: Inactive Condition DoD Abnormal blood pressure (SNOMED CT 82774658) [facility] Acute upper respiratory infection (SNOMED CT 87504782) Active [facility] Benign hypertension Active Condition [place] Cervical radiculopathy Active Condition Aug 10, 2024 Entered By: ELLIE BRADSHAW Comment: Cervical Radiculopathy (Radiates to Fingers, L Hand)Aug 10, 2024 Entered By: ELLIE BRADSHAW Comment: MRI, C-Spine Ryus AUG 08: Multi-Level Discopathy and Spondylosis, Wors atMar 2024 Entered By: ELLIE BRADSHAW Comment: C5-C6, C6-C7; Type Referral in AUG 08 to Neuro-SurgMay 2024 Entered By: ELLIE BRADSHAW Comment: Saw Neuro Surg SEP 08: Surg Planned NOVEMBER 08 [place] Chronic post-traumatic stress disorder (SNOMED CT 338814198) Active Condition Jan 05, 2023 Entered By: JULIETTE BOLES Comment: updated. [facility] [employer] Ex-tobacco user Active Condition Jan 05, 2023 Entered By: JULIETTE BOLES Comment: updated. [place] Exposure to potentially hazardous substance ([facility] [id number]) Active Condition Jun 28 Entered By: CONNOR ANDERSON Comment: Entered automatically through [facility] Problem List documentation program [facility] Gastroesophageal reflux disease Active Condition Feb 16, 2017 Entered By: JULIETTE BOLES Comment: diagnosis updated February 16, 2017 [place] Headache disorder Active Condition No v 2012 Entered By: FRED LIANG Comment: followed by [facility] 02/10/13, MRI 02/24/13 [facility] Herpes zoster ophthalmicus Active Condition Dec 16, 2017 Entered By: ELLIE BRADSHAW Comment: See My Note Dated JAN 01 [place] Insomnia, unspecified (ICD-9-CM 780.52) Active Condition [facility] Irritable bowel syndrome Active Condition Feb 14, 2016 Entered By: ELLIE BRADSHAW Comment: Tentative Dx as of JAN 30; CT of ABD done JAN 30 ([facility]?)Feb 14, 2016 Entered By: ELLIE BRADSHAW Comment: Results CT Pending; Has Alternating Constipation & Diarrhea;Feb 14, 2016 Entered By: ELLIE BRADSHAW Comment: Diarrheal Component More Prominent [place] Lactose intolerance Active Condition [facility] 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 Tendinitis Active Condition Aug 23 012 Entered [...] [facility] Diagnosis: ICD-10-CM M54.12 Radiculopathy, cervical region Active Diagnosis [place] Diagnosis: ICD-10-CM Z87.820 Personal history of traumatic brain injury Active Diagnosis [facility] [place] [facility] Diagnosis: ICD-10-CM M54.2 Cervicalgia Active Diagnosis [place] Diagnosis: ICD-10-CM R42 Dizziness and giddiness Active Diagnosis [facility] [place] [facility] Diagnosis: ICD-10-CM M79.18 Myalgia, other site Active Diagnosis [facility] Diagnosis: ICD-10-CM M47.892 Other spondylosis, cervical region [facility] [place] Diagnosis: ICD-10-CM Z71.89 Other specified counseling Active Diagnosis [facility] [place] [facility] Diagnosis: ICD-10-CM I10 Essential (primary) hypertension Active Diagnosis [place] Diagnosis: ICD-10-CM F43.12 Post-traumatic stress disorder, chronic Active Diagnosis [place] Medications Combined list of outpatient medications from Department of Defense and [facility] Affairs facilities.Medications provided include 1) outpatient medications from the last 15 months, and 2) patient-reported medications. Medication Details Route Status Patient Instructions Prescription Expires Prescription Number Last Dispense Date Ordering Provider Order Date Order Qty Source BACLOFEN 10MG TAB TAKE ONE TABLET BY MOUTH THREE TIMES DAILY NEEDED FOR MUSCLE RIGIDITY ORAL DISCONT INUED (EDIT) 08/17/2025 [id number] TRISTEN ALFONSO [facility] 2024 90 [facility] BACLOFEN 20MG TAB TAKE ONE TABLET BY MOUTH THREE TIMES DAILY NEEDED FOR MUSCLE RIGIDITY ORAL ACTIVE 08/26/2025 [id number] 5 TRISTEN ALFONSO [facility] 2024 270 [facility] CATAPRES (BRAND) 0.1 MG ORAL TAB TAKE ONE TABLET BY MOUTH AT BEDTIME FOR 60 DAYS, AND TAKE ONE TABLET AT BEDTIME NEEDED TO CONTROL BLOOD PRESSURE IF BLOOD PRESSURE ABOVE 140MG. TAKE TWO TABLETS 01/06/2024 [id number] 4 JULIETTE BOLES 2023 120 [facility] CHOLECALCIF TANNER 50MCG (2,000UNIT) TAB TAKE ONE TABLET BY MOUTH ONCE DAILY FOR VITAMIN SUPPLEME NTATION ORAL ACTIVE 11/23/2024 [id number] 5 TRISTEN ALFONSO [facility] 2024 100 [facility] CLONIDINE HCL 0.1MG TAB TAKE ONE TABLET BY MOUTH AT BEDTIME ORAL ACTIVE 08/11/2025 [id number] 5 ANTONIO BRADSHAW 2024 30 [place] CLONIDINE HCL 0.1MG TAB TAKE ONE TABLET BY MOUTH AT BEDTIME ORAL DISCONT INUED 06/14/2025 [id number] 5 Christopher STEEL 2024 30 [place] CLONIDINE HCL 0.1MG TAB TAKE ONE TABLET BY MOUTH AT BEDTIME FOR 60 DAYS, AND TAKE ONE TABLET AT BEDTIME NEEDED TO CONTROL BLOOD PRESSURE IF BLOOD PRESSURE ABOVE 140MG. TAKE TWO TABLETS ORAL 01/06/2024 [id number] 4 ELVIRAAD Davin Jin 2022 120 [place] CYCLOBENZAP RINE HCL 10MG TAB TAKE ONE TABLET BY MOUTH AT BEDTIME FOR MUSCLE SPASM ORAL DISCONT INUED BY PROVIDE R 08/11/2025 [id number] 5 ANTONIO BRADSHAW 2024 14 [place] CYCLOBENZAP RINE HCL 10MG TAB TAKE ONE TABLET BY MOUTH AT BEDTIME FOR MUSCLE SPASM ORAL DISCONT INUED (EDIT) 07/31/2025 [id number] 5 TRISTEN ALFONSO [facility] 2024 90 [facility] GABAPENTIN 100MG CAP TAKE ONE [...] ORAL DISCONT INUED BY PROVIDE R 08/29/2024 [id number] 5 TRISTEN ALFONSO [facility] 2024 [facility] GABAPENTIN 600MG TAB TAKE ONE TABLET BY MOUTH THREE TIMES A DAY ORAL ACTIVE 08/26/2025 [id number] 5 TRISTEN ALFONSOONG [facility] 2024 270 [facility] GABAPENTIN 600MG TAB TAKE ONE-HALF TABLET BY MOUTH TWICE DAILY FOR HEADACHE S AND NERVE PAIN ORAL DISCONT INUED (EDIT) 08/17/2025 [id number] 5 TRISTEN ALFONSO JAVON [facility] 2024 90 [facility] [place] GABAPENTIN 600MG TAB TAKE ONE-HALF TABLET BY MOUTH TWICE DAILY ORAL DISCONT INUED (EDIT) 07/31/2025 [id number] 5 TRISTEN ALFONSO JAVON [facility] 2024 90 [facility] [place] LISINOPRIL 10MG TAB TAKE ONE TABLET BY MOUTH ONCE DAILY TO CONTROL BLOOD PRESSURE ORAL ACTIVE 10/09/2024 [id number] 5 NATONIO BRADSHAW 2024 60 [place] LISINOPRIL 10MG TAB TAKE ONE TABLET BY MOUTH ONCE DAILY TO CONTROL BLOOD PRESSURE ORAL DISCONT INUED 06/27/2025 [id number] 5 ANTONIO BRADSHAW 2024 30 [place] MELATONIN 3MG CAP/TAB TAKE ONE CAPSULE/ TABLET BY MOUTH AT BEDTIME NEEDED ORAL ACTIVE 06/14/2025 [id number] 5 Christopher [employer] 2024 60 [place] MELATONIN 3MG CAP/TAB TAKE ONE CAPSULE/ TABLET BY MOUTH AT BEDTIME FOR INSOMNIA ORAL 01/06/2024 [id number] 4 RAAD BOLES 2022 60 [place] NALOXONE HCL 4MG/SPRAY SOLN,SPRAY, NASAL INSTILL 1 SPRAY ONE NOSTRIL ONE TIME NEEDED FOR OPIOID OVERDOSE CALL 911 WITH ADMINIST RATION. REPEAT WITH SECOND DEVICE IF SYMPTOMS RETURN NASAL 10/12/2023 [id number] 4 RAAD BOLES A 2023 2 [place] Naloxone Hydrochlori de 40 MG/ML [place], Nasal INSTILL 1 SPRAY ONE NOSTRIL ONE TIME NEEDED FOR OPIOID OVERDOSE CALL 911 WITH ADMINIST RATION. REPEAT WITH SECOND DEVICE IF SYMPTOMS RETURN 10/12/2023 [id number] 4 JULIETTE BOLES 2023 2 [facility] Naloxone Hydrochlori de 40 MG/ML [place], Nasal INSTILL 1 SPR[place] ONE NOSTRIL ONE TIME NEEDED FOR OPIOID OVERDOSE CALL 911 WITH ADMINIST RATION. REPEAT WITH SECOND DEVICE IF SYMPTOMS RETURN 10/12/2023 [id number] 4 JULIETTE BOLES 2023 2 [facility] NO KNOWN NON-VA MEDS MISCELLANEO US ACTIVE LUCY SCHAFER JR DO 2011 [facility] OXYCODONE HCL 5MG TAB TAKE ONE TABLET BY MOUTH FOUR TIMES A DAY FOR PAIN NEXT FILL 10/13/24* * ORAL ACTIVE 10/15/2024 [id number] 5 ANTONIO BRADSHAW 2024 112 [place] PRAZOSIN HCL 1MG CAP TAKE ONE CAPSULE BY MOUTH BEDTIME NIGHTMAR ES ORAL ACTIVE 09/16/2025 [id number] 5 ANTONIO BRADSHAW 2024 90 [place] Quetiapine (Seroquel Starter Pack) Tablet 25mg Oral TAKE ONE TABLET BY MOUTH AT BEDTIME 01/06/2024 [id number] 4 JULIETTE BOLES 2023 90 [facility] QUETIAPINE FUMARATE 25MG TAB TAKE ONE-HALF TABLET BY MOUTH AT BEDTIME NEEDED MOOD ORAL ACTIVE 06/14/2025 [id number] 5 Christopher [employer]EL 2024 15 [place] QUETIAPINE FUMARATE 25MG TAB TAKE ONE TABLET BY MOUTH AT BEDTIME ORAL 01/06/2024 [id number] 4 RAAD BOLES 2022 90 [place] RIZATRIPTAN BENZOATE 10MG TAB,ORALLY DISINTEGRAT ING PLACE ONE TABLET ON THE TONGUE DIRECTED (TAKE DIRECTED AT ONSET OF HEADACHE , MAY REPEAT ONE TIME IN 2 HOURS IF NEEDED - ALLOW TABLET TO DISSOLVE ON TONGUE, AND SWALLOW WITH SALIVA) ORAL ACTIVE 08/26/2025 [id number] 5 TRISTEN ALFONSO 2024 27 [facility] sertraline (U/D) 100 MG ORAL TAB TAKE TWO TABLETS BY MOUTH ONCE DAILY 01/06/2024 [id number] 4 JULIETTE BOLES 2023 180 [facility] SERTRALINE HCL 100MG TAB TAKE ONE TABLET BY MOUTH ONCE DAILY ORAL ACTIVE 06/14/2025 [id number] 5 Christopher [employer]EL 2024 60 [place] SERTRALINE HCL 100MG TAB TAKE TWO TABLETS BY MOUTH ONCE DAILY ORAL 01/06/2024 [id number] 4 RAAD BOLES A 2022 180 [place] Allergies, Adverse Reactions, Alerts Combined list of allergies from Department of Defense and Veterans Affairs facilities. It does not include entries that were removed or entered in error. Substance Category Reaction Severity Reaction type Status Date Reported Comments Source Ceftazidime Drug allergy (disorder) Eruption of skin active 2 [facility] CEFTAZIDIME Propensity to adverse reactions to drug (finding) Eruption active 2 [facility] CEFTIN Propensity to adverse reactions to drug (finding) Eruption active 2 [facility] Doxycycline Drug allergy (disorder) Urticaria active 6 [facility] DOXYCYCLINE Propensity to adverse reactions to drug (finding) Urticaria active 6 [facility] Immunizations Combined list of available immunizations from the Department of Defense and Veterans Affairs facilities. Immunization Series Date Given Administered By Site Reaction Lot Number CVX Code Drug [place] Operator Status Comments Source PNEUMOCOCCAL POLYSACCHARID E PPV23 2019 33 complet ed [facility] IELD FLU VACCINE (HISTORICAL) 2012 88 complet ed Vet refused vaccine [facility] INFLUENZA, UNSPECIFIED FORMULATION 2011 88 complet ed [facility] TDAP 2011 115 complet ed [id number] C exp: 09/05/13 [facility] DTAP, UNSPECIFIED FORMULATION 2009 107 complet ed MIL Jin TD(ADULT) UNSPECIFIED FORMULATION 2008 139 complet ed [facility] Results Combined list of recent chemistry, hematology and other laboratory results from Department of Defense and Veterans Affairs, ranging from 15 months to all on record, depending upon the facility. Order Name Results Value Reference Range Date Interpretation Specimen Comments Source MICROALB UMIN CREATINI NE RATIO PANEL MICROALBUM IN/CREATIN INE [MASS RATIO] IN URINE 12.8 mg/g 0 - 29.9 08/02 Specimen Type: URINE No comment entered. Ordering Provider: ELLIE BRADSHAW Report Released Date/Time: Jun 26, 2024 10:28 AM Reporting Lab: [facility] [place] [facility] [address] [facility] [address] Performing Lab: [facility]ALTHTR[facility] [place] [facility] [address] [facility] [address] [place] MICROALB UMIN CREATINI NE RATIO PANEL MICROALBUM IN [MASS/VOLU ME] IN URINE 0.5 mg/dL 08/02 Specimen Type: URINE No comment entered. Ordering Provider: ELLIE BRADSHAW Report Released Date/Time: Jun 26, 2024 10:28 AM Reporting Lab: [facility] [place] [facility] [address] [facility] [address] Performing Lab: [facility]ALTHTR[facility] [place] [facility] [address] [facility] [address] [place] MICROALB UMIN CREATINI NE RATIO PANEL CREATININE [MASS/VOLU ME] IN URINE 39.09 mg/dL 08/02 Specimen Type: URINE No comment entered. Ordering Provider: ELLIE BRADSHAW Report Released Date/Time: Jun 26, 2024 10:28 AM Reporting Lab: [facility] [place] [facility] [address] [facility] [address] Performing Lab: [facility]PITALRGADSDEN REGION[facility]ENTERN [facility] [address] [address] [place] CALCIUM CALCIUM [MASS/VOLU ME] IN SERUM OR PLASMA 9.5 mg/dL 8.5 - 10.2 08/02 Specimen Type: SERUM No comment entered. Ordering Provider: ELLIE BRADSHAW Report Released Date/Time: Jun 26, 2024 10:28 AM Reporting Lab: [facility]ITALRCROSSBR[facility] HEALTHTRN [facility] [address] [facility] [address] Performing Lab: [facility]ITALRGADSDEN [facility]ERN [employer] [address] [facility] [address] [place] LIPID PANEL FASTING CHOLESTERO L [MASS/VOLU ME] IN SERUM OR PLASMA 218 mg/dL 08/02 H Specimen Type: SERUM No comment entered. Ordering Provider: ELLIE BRADSHAW Report Released Date/Time: Jun 26, 2024 10:28 AM Reporting Lab: [facility] [employer] [address] [facility] [address] Performing Lab: [facility] [address] [address] [place] LIPID PANEL FASTING TRIGLYCERI DE [MASS/VOLU ME] IN SERUM OR PLASMA 430 mg/dL 0 - 150 08/02 H Specimen Type: SERUM No comment entered. Ordering Provider: ELLIE BRADSHAW Report Released Date/Time: Jun 26, 2024 10:28 AM Reporting Lab: [facility] [address] [address] Performing Lab: [facility]ITALRGADSDEN [facility]ERN [address] [address] [place] LIPID PANEL FASTING CHOLESTERO L IN LDL [MASS/VOLU ME] IN SERUM OR PLASMA BY CALCULATIO N Reflex to dLDLmg/d L 0 - 129 08/02 Specimen Type: SERUM No comment entered. Ordering Provider: ELLIE BRADSHAW Report Released Date/Time: Jun 26, 2024 10:28 AM Reporting Lab: [facility] [employer] [address] [facility] [address] Performing Lab: [facility] [address] [address] [place] LIPID PANEL FASTING CHOLESTERO L.TOTAL/CH OLESTEROL IN HDL [MASS RATIO] IN SERUM OR PLASMA 6.4 08/02 Specimen Type: SERUM No comment entered. Ordering Provider: ELLIE BRADSHAW Report Released Date/Time: Jun 26, 2024 10:28 AM Reporting Lab: [facility] [place] [facility] [address] [facility] [address] Performing Lab: [facility] [place] [facility] [address] [facility] [address] [place] LIPID PANEL FASTING CHOLESTERO L IN HDL [MASS/VOLU ME] IN SERUM OR PLASMA 34 mg/dL 40 - 60 08/02 L Specimen Type: SERUM No comment entered. Ordering Provider: ELLIE BRADSHAW Report Released Date/Time: Jun 26, 2024 10:28 AM Reporting Lab: [facility] [address] [facility] [address] Performing Lab: [facility] [address] [facility] [address] [place] LIPID PANEL FASTING CHOLESTERO L IN LDL [MASS/VOLU ME] IN SERUM OR PLASMA BY DIRECT ASSAY 138 mg/dL 08/02 H Specimen Type: SERUM No comment entered. Ordering Provider: ELLIE BRADSHAW Report Released Date/Time: Jun 26, 2024 10:28 AM Reporting Lab: [facility] [address] [facility] [address] Performing Lab: [facility] [address] [facility] [address] [place] LIVER FUNCTION PROTEIN [MASS/VOLU ME] IN SERUM OR PLASMA 7.8 g/dL 6.0 - 8.3 08/02 Specimen Type: SERUM No comment entered. Ordering Provider: ELLIE BRADSHAW Report Released Date/Time: Jun 26, 2024 10:28 AM Reporting Lab: [facility] [address] [facility] [address] Performing Lab: [facility] [address] [facility] [address] [place] LIVER FUNCTION ALBUMIN [MASS/VOLU ME] IN SERUM OR PLASMA 4.3 g/dL 3.5 - 5.0 08/02 Specimen Type: SERUM No comment entered. Ordering Provider: ELLIE BRADSHAW Report Released Date/Time: Jun 26, 2024 10:28 AM Reporting Lab: [facility] HOSPITALRL TRN [facility]ITAL[facility] [address] [facility] [address] Performing Lab: [facility]OSPITALRCROSSBRIDGE BEHAVIORAL HEALTHTRN [facility]ITALUSETS [facility] [address] [facility] [address] [facility] LIVER FUNCTION ALKALINE PHOSPHATAS E [ENZYMATIC ACTIVITY/V OLUME] IN SERUM OR PLASMA 91 U/L 40 - 150 08/02 Specimen Type: SERUM No comment entered. Ordering Provider: ELLIE BRADSHAW Report Released Date/Time: Jun 26, 2024 10:28 AM Reporting Lab: [facility] HOSPITALRL TRN [facility]ITAL[facility]ETS [facility] [address] [facility] [address] Performing Lab: [facility] HOSPITALRCROSSBRIDGE BEHAVIORAL HEALTHTRN [facility]ITALUSE[address] [address] [facility] LIVER FUNCTION ASPARTATE AMINOTRANS FERASE [ENZYMATIC ACTIVITY/V OLUME] IN SERUM OR PLASMA 22 U/L 5 - 34 08/02 Specimen Type: SERUM No comment entered. Ordering Provider: ELLIE BRADSHAW Report Released Date/Time: Jun 26, 2024 10:28 AM Reporting Lab: [facility] HOSPITALRL TRN [facility]ITALUSETS [facility] [address] [facility] [address] Performing Lab: [facility] HOSPITALRCROSSBRIDGE BEHAVIORAL HEALTHTRN [facility]ITALUSE[address] [address] [facility] LIVER FUNCTION ALANINE AMINOTRANS FERASE [ENZYMATIC ACTIVITY/V OLUME] IN SERUM OR PLASMA 32 U/L 08/02 Specimen Type: SERUM No comment entered. Ordering Provider: ELLIE BRADSHWA Report Released Date/Time: Jun 26, 2024 10:28 AM Reporting Lab: [facility] HOSPITALRL TRN [facility]ITALUSETS [facility] [address] [facility] [address] Performing Lab: [facility] HOSPITALRCROSSBRIDGE BEHAVIORAL HEALTHTRN [facility]ITALUSE[address] [address] [facility] LIVER FUNCTION BILIRUBIN. TOTAL [MASS/VOLU ME] IN SERUM OR PLASMA 0.3 mg/dL 0.2 - 1.2 08/02 Specimen Type: SERUM No comment entered. Ordering Provider: ELLIE BRADSHAW Report Released Date/Time: Jun 26, 2024 10:28 AM Reporting Lab: [facility] HOSPITALRL TRN [place] [facility] [address] [facility] [address] Performing Lab: [facility] HOSPITALR WSTRN [place] [facility] [address] [facility] [address] [place] URINALYS IS COLOR OF URINE Colorles s 08/02 Specimen Type: URINE Comment: If Glucose = >500 and Ketones are positive, please alert the Physician. Ordering Provider: ELLIE BRADSHAW Report Released Date/Time: Jun 26, 2024 10:28 AM Reporting Lab: [facility] HOSPITALR WSTRN [place] [facility] [address] [facility] [address] Performing Lab: [facility] HOSPITALRGADSDEN REGIONAL MEDICAL CENTERN [facility]PITALUSETS [address] [address] [place] URINALYS IS APPEARANCE OF URINE Clear 08/02 Specimen Type: URINE Comment: If Glucose = >500 and Ketones are positive, please alert the Physician. Ordering Provider: ELLIE BRADSHAW Report Released Date/Time: Jun 26, 2024 10:28 AM Reporting Lab: [facility] HOSPITALRCROSSBRIDGE BEHAVIORAL HEALTHTRN [place] [address] [address] Performing Lab: [facility] HOSPITALRCROSSBRIDGE BEHAVIORAL HEALTHTRN [place] [address] [address] [place] URINALYS IS GLUCOSE [MASS/VOLU ME] IN URINE Normalmg /dL 08/02 Specimen Type: URINE Comment: If Glucose = >500 and Ketones are positive, please alert the Physician. Ordering Provider: ELLIE BRADSHAW Report Released Date/Time: Jun 26, 2024 10:28 AM Reporting Lab: [facility]ITALRCROSSBRIDGE BEHAVIORAL HEALTHTRN [place] [address] [address] Performing Lab: [facility] HOSPITALR WSTRN [place] [address] [address] [place] URINALYS IS KETONES [MASS/VOLU ME] IN URINE BY TEST STRIP NEGATIVE mg/dL 08/02 Specimen Type: URINE Comment: If Glucose = >500 and Ketones are positive, please alert the Physician. Ordering Provider: ELLIE BRADSHAW Report Released Date/Time: Jun 26, 2024 10:28 AM Reporting Lab: [facility]ITALRCROSSBRIDGE BEHAVIORAL HEALTHTRN [place] [address] [address] Performing Lab: [address] [address] [place] URINALYS IS ERYTHROCYT ES [PRESENCE] IN URINE SEDIMENT BY LIGHT MICROSCOPY NEGATIVE mg/dL 08/02 Specimen Type: URINE Comment: If Glucose = >500 and Ketones are positive, please alert the Physician. Ordering Provider: ELLIE BRADSHAW Report Released Date/Time: Jun 26, 2024 10:28 AM Reporting Lab: [address] [address] Performing Lab: [address] [address] [place] URINALYS IS PROTEIN [MASS/VOLU ME] IN URINE BY TEST STRIP NEGATIVE mg/dL 08/02 Specimen Type: URINE Comment: If Glucose = >500 and Ketones are positive, please alert the Physician. Ordering Provider: ELLIE BRADSHAW Report Released Date/Time: Jun 26, 2024 10:28 AM Reporting Lab: [address] [address] Performing Lab: [address] [address] [place] URINALYS IS NITRITE [PRESENCE] IN URINE NEGATIVE mg/dL 08/02 Specimen Type: URINE Comment: If Glucose = >500 and Ketones are positive, please alert the Physician. Ordering Provider: ELLIE BRADSHAW Report Released Date/Time: Jun 26, 2024 10:28 AM Reporting Lab: [address] [address] Performing Lab: [address] [address] [place] URINALYS IS BILIRUBIN. TOTAL [PRESENCE] IN URINE NEGATIVE mg/dL 08/02 Specimen Type: URINE Comment: If Glucose = >500 and Ketones are positive, please alert the Physician. Ordering Provider: ELLIE BRADSHAW Report Released Date/Time: Jun 26, 2024 10:28 AM Reporting Lab: [facility] [address] [address] Performing Lab: [address] [address] [place] URINALYS IS SPECIFIC GRAVITY OF URINE BY REFRACTOME TRY 1.009 1.016 - 1.022 08/02 L Specimen Type: URINE Comment: If Glucose = >500 and Ketones are positive, please alert the Physician. Ordering Provider: ELLIE BRADSHAW Report Released Date/Time: Jun 26, 2024 10:28 AM Reporting Lab: [address] [address] Performing Lab: [address] [address] [place] URINALYS IS PH OF URINE BY TEST STRIP 6.5 5.0 - 9.0 08/02 Specimen Type: URINE Comment: If Glucose = >500 and Ketones are positive, please alert the Physician. Ordering Provider: ELLIE BRADSHAW Report Released Date/Time: Jun 26, 2024 10:28 AM Reporting Lab: [address] [address] Performing Lab: [address] [address] [place] URINALYS IS UROBILINOG EN [MASS/VOLU ME] IN URINE BY TEST STRIP Normalmg /dL <2.0 - 2.0 08/02 Specimen Type: URINE Comment: If Glucose = >500 and Ketones are positive, please alert the Physician. Ordering Provider: ELLIE BRADSHAW Report Released Date/Time: Jun 26, 2024 10:28 AM Reporting Lab: [address] [address] Performing Lab: [address] [address] [place] URINALYS IS LEUKOCYTE ESTERASE [PRESENCE] IN URINE BY TEST STRIP NEGATIVE 08/02 Specimen Type: URINE Comment: If Glucose = >500 and Ketones are positive, please alert the Physician. Ordering Provider: ELLIE BRADSHAW Report Released Date/Time: Jun 26, 2024 10:28 AM Reporting Lab: [facility]ITALRCR[facility]ALTHTRN [facility]ITALUS[facility] [address] [facility] [address] Performing Lab: [facility] HOSPITALRL TRN [facility]ITALUSETS [facility] [address] [facility] [address] [place] BASIC METABOLI C PANEL (fasting ) UREA NITROGEN [MASS/VOLU ME] IN SERUM OR PLASMA 14 mg/dL 7 - 25 08/02 Specimen Type: SERUM No comment entered. Ordering Provider: ELLIE BRADSHAW Report Released Date/Time: Jun 26, 2024 10:28 AM Reporting Lab: [facility]OSPITALRCROSSBRID[facility]HAVIORAL HEALTHTRN [facility] [address] [facility] [address] Performing Lab: [facility]ITALRCROSSBRIDGE BEHAVIORAL HEALTHTRN [facility]ITALUSENEWARK[facility] [address] [facility] [address] [place] BASIC METABOLI C PANEL (fasting ) GLUCOSE [MASS/VOLU ME] IN SERUM OR PLASMA 98 mg/dL 65 - 100 08/02 Specimen Type: SERUM No comment entered. Ordering Provider: ELLIE BRADSHAW Report Released Date/Time: Jun 26, 2024 10:28 AM Reporting Lab: [facility]OSPITALRCROSSBRIDGE BEHAVIORAL HEALTHTRN [facility] [address] [facility] [address] Performing Lab: [facility]ITALRCROSSBRID[facility] BEHAVIORAL HEALTHTRN [facility]ITALUSENEWARK-[facility] [address] [facility] [address] [place] BASIC METABOLI C PANEL (fasting ) SODIUM [MOLES/VOL UME] IN SERUM OR PLASMA 137 mmol/L 135 - 145 08/02 Specimen Type: SERUM No comment entered. Ordering Provider: ELLIE BRADSHAW Report Released Date/Time: Jun 26, 2024 10:28 AM Reporting Lab: [facility]OS[facility]ITALRCROSSBRID[facility] BEH[facility]IOR[facility] HEALTHTRN [facility]ITALUSETS [facility] [address] [facility] [address] Performing Lab: [facility]ITALRCROSSBRIDGE BEHAVIORAL HEALTHTRN [facility]ITALUSETS [facility] [address] [facility] [address] [place] BASIC METABOLI C PANEL (fasting ) POTASSIUM [MOLES/VOL UME] IN SERUM OR PLASMA 4.6 mmol/L 3.5 - 5.0 08/02 Specimen Type: SERUM No comment entered. Ordering Provider: ELLIE BRADSHAW Report Released Date/Time: Jun 26, 2024 10:28 AM Reporting Lab: [facility]OSPITALRCROSSBRIDGE BEH[facility]IORAL HEALTHTRN [facility]ITALUSETS [facility] [address] [facility] [address] Performing Lab: [facility] HOSPITALRGADSDEN REGIONAL MEDICAL CENTERN [facility]OSPITALUSENEWARK[facility] [address] [facility] [address] [employer] BASIC METABOLI C PANEL (fasting ) CHLORIDE [MOLES/VOL UME] IN SERUM OR PLASMA 103 mmol/L 100 - 110 08/02 Specimen Type: SERUM No comment entered. Ordering Provider: ELLIE BRADSHAW Report Released Date/Time: Jun 26, 2024 10:28 AM Reporting Lab: [facility]OSPITALRCROSSBRIDGE BEHAVIORAL HEALTHTRN [facility] [address] [facility] [address] Performing Lab: [facility] HOSPITALRGADSDEN REGIONAL MEDICAL CENTERN [facility] [address] [facility] [address] [employer] BASIC METABOLI C PANEL (fasting ) CARBON DIOXIDE, TOTAL [MOLES/VOL UME] IN SERUM OR PLASMA 26 meq/L 20 - 30 08/02 Specimen Type: SERUM No comment entered. Ordering Provider: ELLIE BRADSHAW Report Released Date/Time: Jun 26, 2024 10:28 AM Reporting Lab: [facility] HOSPITALRGADSDEN REGIONAL MEDICAL CENTERN [facility] [address] [facility] [address] Performing Lab: [facility] HOSPITALRCROSSBRIDGE BEHAVIORAL HEALTHTRN [facility]PITALUSENEWARK-[facility] [address] [facility] [address] [employer] BASIC METABOLI C PANEL (fasting ) CALCIUM [MASS/VOLU ME] IN SERUM OR PLASMA 9.5 mg/dL 8.5 - 10.2 08/02 Specimen Type: SERUM No comment entered. Ordering Provider: ELLIE BRADSHAW Report Released Date/Time: Jun 26, 2024 10:28 AM Reporting Lab: [facility] HOSPITALRCROSSBRIDGE BEHAVIORAL HEALTHTRN [facility]OSPITALUSENEWARK[facility] [address] [facility] [address] Performing Lab: [facility] HOSPITALRGADSDEN REGIONAL MEDICAL CENTERN [facility]OSPITALUSE[address] [address] [employer] BASIC METABOLI C PANEL (fasting ) CREATININE [MASS/VOLU ME] IN SERUM OR PLASMA 0.82 mg/dL 0.50 - 1.40 08/02 Specimen Type: SERUM No comment entered. Ordering Provider: ELLIE BRADSHAW Report Released Date/Time: Jun 26, 2024 10:28 AM Reporting Lab: [facility]ITALN [facility] [address] [facility] [address] Performing Lab: [facility]ITALN [facility] [address] [facility] [address] [place] BASIC METABOLI C PANEL (fasting ) GLOMERULAR FILTRATION RATE/1.73 SQ M.PREDICTE D [VOLUME RATE/AREA] IN SERUM, PLASMA OR BLOOD BY CREATININE -BASED FORMULA (CKD-EPI 2020) >90mL/mi n 60 08/02 Specimen Type: SERUM No comment entered. Ordering Provider: ELLIE BRADSHAW Report Released Date/Time: Jun 26, 2024 10:28 AM Reporting Lab: [facility]ITALN [facility] [address] [facility] [address] Performing Lab: [address] [address] [place] URIC ACID URATE [MASS/VOLU ME] IN SERUM OR PLASMA 6.1 mg/dL 3.5 - 7.2 08/02 Specimen Type: SERUM No comment entered. Ordering Provider: ELLIE BRADSHAW Report Released Date/Time: Jun 26, 2024 10:28 AM Reporting Lab: [facility]ITALN [facility] [address] [facility] [address] Performing Lab: [address] [address] [place] VITAMIN D (25-OH) 25-HYDROXY VITAMIN D3 [MASS/VOLU ME] IN SERUM OR PLASMA 19 ng/mL 20 - 50 08/02 L Specimen Type: SERUM No comment entered. Ordering Provider: ELLIE BRADSHAW Report Released Date/Time: Jun 26, 2024 10:28 AM Reporting Lab: [facility] [address] [facility] [address] Performing Lab: [facility]OSPITALN [address] [address] [place] HEMOGLOB IN A1C PANEL HEMOGLOBIN [...] Jun 26, 2024 10:28 AM Reporting Lab: [facility] HOSPITALRCROSSBRIDGE BEHAVIORAL HEALTHTRN [facility] [address] [facility] [address] Performing Lab: [facility]ITALN [facility] [address] [facility] [address] ROLANDODella TSH THYROTROPI N [UNITS/VOL UME] IN SERUM OR PLASMA 1.56 u[IU]/mL 0.35 - 5.00 08/02 Specimen Type: SERUM No comment entered. Ordering Provider: ELLIE BRADSHAW Report Released Date/Time: Jun 26, 2024 10:28 AM Reporting Lab: [facility]ITALN [facility] [address] [facility] [address] Performing Lab: [facility]ITALN [facility]ITALUSENEWARK[facility] [address] [facility] [address] [facility] Vital Signs Combined list of inpatient and outpatient Vital Signs from Department of Defense and Veterans Affairs, ranging from 12 months to all on record, depending upon the facility. Vital Sign Value Date Comments Source SYSTOLIC BLOOD PRESSURE 158 09/16/19 25 13:00:47 [place] DIASTOLIC BLOOD PRESSURE 112 025 13:00:47 [place] PULSE OXIMETRY 99 09/15/2024 13:00:47 [place] WEIGHT 266.9 09/15/2024 13:00:47 [place] BMI 37 kg/m2 09/15/2024 13:00:47 [place] TEMPERATURE 97.6 09/15/2024 13:00:47 [place] PULSE 83 09/15/2024 13:00:47 [place] SYSTOLIC BLOOD PRESSURE 142 08/17/19 25 08:38:09 [facility] DIASTOLIC BLOOD PRESSURE 87 025 08:38:09 [facility] [place] PULSE OXIMETRY 97 08/16/2024 08:38:09 [facility] PAIN 8 08/16/2024 08:38:09 [facility] TEMPERATURE 98.3 08/16/2024 08:38:09 [facility] PULSE 78 08/16/2024 08:38:09 [facility] RESPIRATION 16 08/16/2024 08:38:09 [facility] SYSTOLIC BLOOD PRESSURE 126 08/11/19 09:38:58 [place] DIASTOLIC BLOOD PRESSURE 87 025 09:38:58 [place] PULSE OXIMETRY 98 08/10/2024 09:38:58 [place] WEIGHT 270 08/10/2024 09:38:58 [place] BMI 38 kg/m2 08/10/2024 09:38:58 [place] PAIN 0 08/10/2024 09:38:58 [place] HEIGHT 71 08/10/2024 09:38:58 [place] TEMPERATURE 96.1 08/10/2024 09:38:58 [place] PULSE 66 08/10/2024 09:38:58 [place] RESPIRATION 20 08/10/2024 09:38:58 [place] SYSTOLIC BLOOD PRESSURE 160 06/26/19 10:11:47 [place] DIASTOLIC BLOOD PRESSURE 100 025 10:11:47 [place] PULSE OXIMETRY 98 06/26/2024 10:11:47 [place] WEIGHT 274 06/26/2024 10:11:47 [place] BMI 38 kg/m2 06/26/2024 10:11:47 [place] TEMPERATURE 97.2 06/26/2024 10:11:47 [place] PULSE 65 06/26/2024 10:11:47 [place] RESPIRATION 18 06/26/2024 10:11:47 [place] SYSTOLIC BLOOD PRESSURE 174 06/13/19 25 16:04:31 [facility] DIASTOLIC [...] ADM Date DC Date Status [facility] Source [facility] OUTPATIENT [id number] [facility] KAUR 08/06 Released w/o Limitations [facility] Kwesi CorazonArcolacynFormerly [facility] OUTPATIENT [id number] [facility] KAUR 08/06 Released w/o Limitations [facility]) [facility]) OUTPATIENT [id number] [facility] JACQUI TURNER 09/03 Released w/o Limitations [facility] En[facility] [id number] 03/25 [facility] En[facility] [id number] 03/29 [facility] Encounter [id number] 03/30 [facility] Out[facility] Encounter [id number] 04/13 [facility] [place] Outpatient Encounter [id number] 04/19 [place] [facility] Encounter [id number] 05/26 [facility] Encounter [id number] 06/09 [facility] Encounter [id number] 06/16 [facility] Encounter [id number] 07/13 [facility] En[facility] [id number] 07/18 [place] [facility] Encounter [id number] 11/14 [facility] Encounter [id number] 11/14 [facility] Encounter [id number] 11/18 [facility] Encounter [id number] 11/22 [facility] Encounter [id number] 01/01 [facility] Encounter [id number] 01/11 [facility] Encounter [id number] 04/27 [facility] Encounter [id number] 05/01 [facility] Encounter [id number] 06/07 [facility] Encounter [id number] 06/12 [facility] [place] CASE MANAGEMENT [id number] Diagnos is: ICD-10- CM F43.12 Post-tr aumatic stress disorde r, chronic MENCHACA,KYLIE 06/13 [place] [facility] Encounter [id number] 06/14 [facility] [place] OFFICE O/P EST MOD 30 MIN [id number] Diagnos is: ICD-10- CM I10 Essenti al (primar y) hyperte nsion LISSETTE BRADSHAW 06/26 [place] [facility] Out[facility] Encounter [id number] 07/10 [facility] [place] Outpatient Encounter [id number] 07/25 [place] [facility] OFFICE O/P NEW HI 60 MIN [id number] Diagnos is: ICD-10- CM 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 HARISH ALFONSO THI 07/28 [facility] En[facility] [id number] 07/31 [facility] Encounter [id number] 08/02 [facility] HLTH BHV ASSMT/REAS SESSMENT [id number] Diagnos is: ICD-10- CM 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 LAURENCE RENDON 08/02 [facility] Out[facility] Encounter [id number]/09 [facility] EST LOW 20 MIN [id number] Diagnos is: ICD-10- CM M54.12 Radicul opathy, cervica l region YESSICA BRADSHAW HLEEN 08/10 [place] [facility] OFFICE O/P EST HI 40 MIN [id number] Diagnos is: ICD-10- CM M47.892 Other spondyl osis, cervica l region HARISH ALFONSO [facility] 08/15 [facility] PH1 ASSMT&MGMT NQHP 21-30 [id number] Diagnos is: ICD-10- CM 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 LAURENCE RENDON 08/15 [facility] Out[facility] Encounter [id number] 08/16 [facility] OFFICE O/P [place] HI 40 MIN [id number] Diagnos is: ICD-10- CM M79.18 Myalgia , other site HARISH ALFONSO [facility] 08/16 [facility] Outpatient Encounter [id number] 08/22 [facility] OFFICE O/P EST HI 40 MIN [id number] Diagnos is: ICD-10- CM M54.12 Radicul opathy, cervica l region HARISH ALFONSO [facility] 08/25 [facility] CASE MANAGEMENT [id number] Diagnos is: ICD-10- CM 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 LAURENCE RENDON 09/05 [facility] SELF CARE MNGMENT TRAINING [id number] Diagnos is: ICD-10- CM R42 Dizzine ss and giddine ss INGRID BOSWELL M 09/05 [facility] [place] PT EVAL MOD COMPLEX 30 MIN [id number] Diagnos is: ICD-10- CM M54.2 Cervica lgia BALWINDER SCHILLING 09/06 [place] [facility] Outpatient Encounter [id number] 09/06 [facility] CASE MANAGEMENT [id number] Diagnos is: ICD-10- CM 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 LAURENCE RENDON 09/11 [facility] Out[facility] Encounter [id number] 09/13 [facility] Outpatient Encounter [id number] 09/14 [facility] [place] OFFICE O/P EST LOW 20 MIN [id number] Diagnos is: ICD-10- CM M54.12 Radicul opathy, cervica l region LISSETTE BRADSHAW 09/15 [facility] [place] [facility] Outpatient Encounter [id number] 09/15 [facility] [place] [place] En[place] [id number] [facility] Outpatient Encounter [id number] 09/18 [facility] [place] Procedures Combined list of: 1) Procedures from Department of Veterans Affairs facilities going back up to thelast 18 months, not all [place] non-surgical procedures are included; 2) All procedures from the Department of Defense facilities. Procedure Procedure Type Code Date Perfomer Comments Sourc e CRUTCHES, FOREARM, INCLUDES CRUTCHES OF VARIOUS MATERIALS, ADJUSTABLE OR FIXED, PAIR, COMPLETE WITH TIPS AND HANDGRIPS 05/30/2001 [facility] MEDICAL NUTRITION THERAPY; GROUP (2 OR MORE INDIVIDUAL(S)), EACH 30 MINUTES 09/20/2003 [facility] MEDICAL NUTRITION THERAPY; GROUP (2 OR MORE INDIVIDUAL(S)), EACH 30 MINUTES 09/18/2003 [facility] MEDICAL NUTRITION THERAPY; GROUP (2 OR MORE INDIVIDUAL(S)), EACH 30 MINUTES 08/09/2003 [facility] MEDICAL NUTRITION THERAPY; GROUP (2 OR MORE INDIVIDUAL(S)), EACH 30 MINUTES 08/07/2003 [facility] INJECTION, KETOROLAC TROMETHAMINE, PER 15 MG 04/24/2003 [facility] Social History Combined list of available smoking, tobacco, and other social history from Department of Defense and Veterans Affairs facilities. Social History Type Response Date Comment Source Tobacco smoking status NHIS VA-TOBACCO USE SOME DAYS CIGARETTES 09/15/2024 [facility] History of tobacco use VA-TOBACCO USE DECLINED TO ANSWER OTHER TYPE 09/15/2024 [facility] History of tobacco use AL-TOBACCO USE FORMER CIGARETTES 06/26/2024 [place] History of tobacco use AL-TOBACCO FORMER USER 05/26/2022 [place] History of tobacco use AL-TOBACCO FORMER USER 04/29/2021 [place] History of tobacco use AL-TOBACCO FORMER USER 04/09/2020 [place] History of tobacco use AL-TOBACCO FORMER USER 01/10/2020 [place] History of tobacco use AL-TOBACCO USER EVERY DAY 08/08/2018 [place] History of tobacco use CURRENT SMOKER 08/06/2017 4 day [place] History of tobacco use CURRENT SMOKER 11/12/2016 cutting back his decreasing on his own [place] History of tobacco use CURRENT SMOKER 05/08/2016 is cutting back . Interested in tobacco cessation next visit. [place] History of tobacco use QUIT TOBACCO USE 1-7 YEARS AGO 06/04/2015 stopped one month ago [place] History of tobacco use V1-PT THINKING ABOUT QUIT TOBACCO USE 05/13/2015 [place] History of tobacco use CURRENT SMOKER 01/27/2013 [facility] History of tobacco use CURRENT TOBACCO USER 02/03/2012 [facility] History of tobacco use V1-PT DECLINES TOBACCO CESSATION MEDS 08/24/2011 [facility] History of tobacco use CURRENT SMOKER 05/19/2011 pack a week [facility] History of tobacco use CURRENT SMOKER 05/05/2011 once in a while [facility] This section is an empty social history section. [facility] Plan of Care List of future care activities from [facility] facilities. Additional future care activities may be listed in the Assessment and Plan section. Date/Time Care Activity Care Activity Detail Facili ty 09/20/2024 AMBULATORY - MEDICINE AMBULATORY - MEDICI NE [facility] Advance Directives List of completed, amended, or rescinded Advance Directives on record at [facility] facilities. An actual copy of the Directive is not included. Date Advance Directive Provider Source 03/09/2013 ADVANCE DIRECTIVE DISCUSSION JERAMY JACKMAN [facility]
--- OUTSIDE RECORDS SUMMARY | 2024-09-20 16:09 | XMS_ITS | Encounter Summary ---
Author Name [facility] [place] Organization [facility] [place] Address [address] [place] [address] Care Team Providers Care Principal Electrical Engineer Name Role Phone ELLIE BRADSHAW Primary Care [...] Ewing's Name Patient's Relationship to Policy Ewing [facility] (MEDICAID) MEDICAID MEDIC AID Dec 30, 2012 MEDICAI D [id number] HARSHIL AL RISTOP PATIENT [facility] [place] MED[place]ID [place] ([place]) Dec 30, 2012 MEDICAI D [id number] HARSHIL AL RISRAFAEL PATIENT Selected Encounter This section includes the information on record at [place] for the Encounter. Date/Time Encounter Type Encounter Description Reason Pro vider Source September 15, 2024 01:01 PM Outpatient Encounter PRIMARY CARE/MEDICINE IHE Encounter Template [...] The data comes from all [place] treatment [facility]. Appointment Date/Time Appointment Type Appointme nt Facility Name September 18, 2024 11:00 AM AMBULATORY - REHAB MEDICIN E [place] September 19, 2024 02:00 PM AMBULATORY - MEDICINE [facility] [place] [facility] September 22, 2024 09:00 AM AMBULATORY - REHAB MEDICIN E [place] September 25, 2024 09:00 AM AMBULATORY - REHAB MEDICIN E [place] October 02, 2024 09:00 AM AMBULATORY - REHAB MEDICIN E [place] October 10, 2024 10:00 AM AMBULATORY - REHAB MEDICIN E [place] October 11, 2024 01:00 PM AMBULATORY - PSYCHIATRY [facility] October 13, 2024 08:30 AM AMBULATORY - REHAB MEDICIN E [facility] [place] [facility] Oct 27, 2024 10:00 AM AMBULATORY - REHAB MEDICIN E [facility] [place] [facility] Active, Pending, and Scheduled Orders This section includes a listing of several types of active, pending, and scheduled orders, including clinic medications orders, diagnostic test orders, procedure orders and consult orders; where the start date of the order is 45 days before the date of the Encounter or 45 days after the date of theEncounter. The data comes from all [place] treatment [facility]. Test Date/Time Test Type Test Details Facility Name Aug 10, 2024 09:42 AM Consult Order COMMUNITY CARE-NEUROSURGERY Cons Crepe Sole Scourer's Choice [place] Aug 18, 2024 11:56 AM Consult Order COMMUNITY CARE-DENTAL GENERAL Cons [place] Sole Scourer's Choice [facility] [place] [facility] Aug 18, 2024 11:56 AM Consult Order COMMUNITY CARE-DENTAL GENERAL Cons Crepe Sole Scourer's Choice [facility] [place] [facility] Aug 18, 2024 11:56 AM Consult Order COMMUNITY CARE-DENTAL SPECIALTY Cons [place] Sole Scourer's Choice [facility] [place] [facility] Aug 25, 2024 12:12 PM Consult Order TBI SPEECH OUTPT [place] Sole Scourer's Choice [facility] [place] [facility] Aug 25, 2024 12:26 PM Consult Order COMMUNITY CARE-PAIN MANAGEMENT Cons [place] Sole Scourer's Choice [facility] [place] [facility] Sep 12, 2024 09:54 AM Consult Order BIOFEEDBAC K FOR PAIN/[facility] (OUTPT) Cons [place]pe Sole Scourer's Choice [facility] Social History: Smoking Status (Most current) and [...] Date/Time Current Smoking Status Comment Facil ity September 15, 2024 01:01 PM VA-TOBACCO USE STEPHANIE E DAYS CIGARETTES [facility] Tobacco Use History This section includes a history of the smoking, or tobacco-related health factors, that were collected on or before the date of the Encounter. The data comes from the [place] facility where the Encounter took place. Date/Time Smoking Status/Tobac co Use Comment Facility September 15, 2024 01:01 PM VA-TOBACCO USE SOME DAYS CIGARETTES [facility] Jan 27, 2013 01:11 PM CURRENT SMOKER [facility] Jan 27, 2013 01:11 PM V1-PT DECLINES REF TO TOBACCO CESS PRGM [facility] Jan 27, 2013 01:11 PM V1-PT DECLINES TOBACCO CESSATION MEDS [facility] Jan 27, 2013 01:11 PM V1-PT NOT INTERESTED IN QUIT TOBACCO USE [facility] Aug 24, 2011 03:03 PM V1-PT DECLINES REF TO TOBACCO CESS PRGM [facility] Aug 24, 2011 03:03 PM V1-PT DECLINES [facility]ACCO [facility] Aug 24, 2011 03:03 PM V1-PT NOT INTERESTED IN QUIT TOBACCO USE [facility] May 19, 2011 02:05 PM CURRENT SMOKER pack a week [facility] May 05, 2011 10:41 AM CURRENT SMOKER once in a while [facility] Advance Directives: All historical and current Section [...] Source Mar 09, 2013 ADVANCE DIRECTIVE DISCUSSION BTETE JACKMAN [facility] Encounter Notes: All associated encounter notes This section contains the clinical notes associated to the Encounter. Date/Time Encounter Note(s) Provider Source September 15, 2024 01:01 PM PREVENTIVE MEDICIN E NURSING NOTE: LOCAL TITLE: CLINICAL REMINDERS/NURSING STANDARD TITLE: PREVENTIVE MEDICINE NURSING NOTE DATE OF NOTE: SEPTEMBER 15, 2024@13:01 ENTRY DATE: SEPTEMBER 15, 2024@13:01:42 AUTHOR: TEE LO EXP COSIGNER: URGENCY: STATUS: COMPLETED Tobacco Use Screening: The patient smokes cigarettes some days. The patient declines to say if they use other types of tobacco. Influenza Immunization: Patient educated on the need for receiving influenza immunization either at [place] or outside facility. Td/Tdap Immunization: Patient educated on the need for receiving Tdap immunization either at [place] or outside facility. RHS Screen: RHS Screen Environmental Check Screening was not completed at this time due to: Another adult present /es/ TEE LO LPN LPN Signed: 09/15/2024 13:02 TEE OL [place]
--- OUTSIDE RECORDS SUMMARY | 2024-09-20 16:09 | XMS_ITS | Clinical Summary ---
Author Organization [facility] Address [address] [place] [address] Care Team Providers Care Sewing Machines Salesperson Name Role Phone Wyatt Potts Primary Care Provider [phone] Allergies Active Allergy Reactions Criticality Noted Date [...] age to complete this topic Care Teams Sewing Machines Salesperson Relationship Specialty Start Date End Date Wyatt Potts PA [address] [place] [id number] PCP - General Physician Financial Institution Branch Manager 12/21/23
--- OUTSIDE RECORDS SUMMARY | 2024-09-20 16:09 | XMS_ITS | Encounter Summary ---
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 Date/Time Encounter Type Encounter Description Reason Pro vider Source September 18, 2024 11:00 AM Outpatient Encounter PHYSICAL THERAPY IHE Encounter Template Text not used by VA Plan of Treatment: Future Appointments (+ 6 months) and Future Tests (+/- 45 days) The Plan of Treatment section includes future care activities for the patient from all [place] treatmentfacilities. This section includes future appointments and future orders which are active, pending or scheduled. Future Appointments This section includes appointments that were scheduled to occur 6 months from the date of the Encounter, up to a maximum of 20 appointments. The data comes from all [place] treatment facilities. Appointment Date/Time Appointment Type Appointme nt Facility Name September 19, 2024 02:00 PM AMBULATORY - MEDICINE [facility] [place] [facility] September 22, 2024 09:00 AM AMBULATORY - REHAB MEDICIN E [place] September 25, 2024 09:00 AM AMBULATORY - REHAB MEDICIN E [place] October 02, 2024 09:00 AM AMBULATORY - REHAB MEDICIN E [place] October 10, 2024 10:00 AM AMBULATORY - REHAB MEDICIN E [place] October 11, 2024 01:00 PM AMBULATORY - PSYCHIATRY [facility] October 13, 2024 08:30 AM AMBULATORY - REHAB MEDICIN E [facility] [place] [facility] Oct 27, 2024 10:00 AM AMBULATORY - REHAB MEDICIN E [facility] [place] [facility] Active, Pending, and Scheduled Orders This section includes a listing of several types of active, pending, and scheduled orders, including clinic medications orders, diagnostic test orders, procedure orders and consult orders; where the start date of the order is 45 days before the date of the Encounter or 45 days after the date of theEncounter. The data comes from all [place] treatment facilities. Test Date/Time Test Type Test Details Facility Name Aug 10, 2024 09:42 AM Consult Order COMMUNITY CARE-NEUROSURGERY Cons Research Nurse Practitioner's Choice [place] Aug 18, 2024 11:56 AM Consult Order COMMUNITY CARE-DENTAL GENERAL Cons Research Nurse Practitioner's Choice [place] [facility] [facility] Aug 18, 2024 11:56 AM Consult Order COMMUNITY CARE-DENTAL GENERAL Cons Research Nurse Practitioner's Choice [facility] [place] [facility] Aug 18, 2024 11:56 AM Consult Order COMMUNITY CARE-DENTAL SPECIALTY Cons Research Nurse Practitioner's Choice [facility] [place] [facility] Aug 25, 2024 12:12 PM Consult Order TBI SPEECH OUTPT Cons [facility] Nurse Practitioner's Choice [facility] [place] [facility] Aug 25, 2024 12:26 PM Consult Order COMMUNITY CARE-PAIN MANAGEMENT Cons [facility] Nurse Practitioner's Choice [facility] [place] [facility] Sep 12, 2024 09:54 AM Consult Order BIOFEEDBAC K FOR PAIN/[facility] (OUTPT) Cons [facility] Nurse Practitioner's Choice [place] [facility] [place] [facility] Social History: Smoking Status (Most current) and Tobacco Use (All prior to encounter date) This section includes the most current, and the historical, smoking and tobacco- related health factors from the [place] facility where the Encounter took place. Current Smoking Status This section includes the most current smoking, or tobacco-related health factor, from the [place] facility where the Encounter took place. Date/Time Current Smoking Status Comment Dam[place] ity Jun 26, 2024 10:00 AM VA-TOBACCO USE FORMER CIGARETTES [place] Tobacco Use History This section includes a history of the smoking, or tobacco-related health factors, that were collected on or before the date of the Encounter. The data comes from the [place] facility where the Encounter took place. Date/Time Smoking Status/Tobacco Use Comment F acility Jun 26, 2024 10:00 AM VA-TOBACCO USE FOR DEBRA CIGARETTES [place] May 26, 2022 11:30 AM VA-TOBACCO FORMER USER [place] May 26, 2022 11:30 AM VA-TOBACCO QUIT 5 TO < 15 YRS [place] Apr 29, 2021 11:30 AM VA-TOBACCO FORMER USER [place] Apr 29, 2021 11:30 AM VA-TOBACCO QUIT 1 TO < 5 YRS [place] Apr 09, 2020 09:00 AM VA-TOBACCO FORMER USER [place] Apr 09, 2020 09:00 AM VA-TOBACCO QUIT < 1 YEAR [place] Jan 10, 2020 09:30 AM VA-TOBACCO FORMER USER [place] Jan 10, 2020 09:30 AM VA-TOBACCO QUIT < 1 YEAR [place] Aug 08, 2018 01:45 PM VA-TOBACCO USE > 1 5 LESS THAN 30 YEARS [place] Aug 08, 2018 01:45 PM VA-TOBACCO USE ADVICE [place] Aug 08, 2018 01:45 PM 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 Interested in tobacco cessation next visit. [place] Jun 04, 2015 10:22 AM QUIT TOBACCO USE 1 -7 YEARS AGO stopped one month ago [place] May 13, 2015 08:27 AM V1-PT DECLINES REF TO TOBACCO CESS PRGM [place] May 13, 2015 08:27 AM V1-PT THINKING ABO UT QUIT TOBACCO USE [place] Advance Directives: All historical and current Section Date Range: From patient's date of to the date document was created. This section includes ALL of a patient's completed or amended [place] Advance and Rescinded Directives. The entries below indicate that a directive exists for the patient, but an actual copy is not included with this document. The data comes from all [place] facilities. Date Advance Directives Provider Source Mar 09, 2013 ADVANCE DIRECTIVE DISCUSSION BETTE JACKMAN [place] [facility] [place] [facility] Encounter Notes: All associated encounter notes This section contains the clinical notes associated to the Encounter. Date/Time Encounter Note(s) Provider Source September 14, 2024 11:07 AM PHYSICIAN ASSISTAN T NOTE: LOCAL TITLE: MICHAEL NOTE STANDARD TITLE: PHYSICIAN WELLNESS SPA MANAGER NOTE DATE OF NOTE: SEPTEMBER 14, 2024@11:07 ENTRY DATE: SEPTEMBER 14, 2024@11:07:43 AUTHOR: ELLIE BRADSHAW EXP COSIGNER: URGENCY: STATUS: COMPLETED please make 3:30 or 4:00 pm appt whatever day for pain pills /es/ ELLIE BRADSHAW PA-C STAFF PHYSICIAN WELLNESS SPA MANAGER Signed: 09/14/2024 11:08 ELLIE BRADSHAW
--- OUTSIDE RECORDS SUMMARY | 2024-09-20 16:09 | XMS_ITS | Encounter Summary ---
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 (MEDICAID) MEDICAID MEDIC AID Dec 30, 2012 MEDICAI D [id number] HARSHIL AL RISTOP PATIENT [facility] MED[place] MED[place]ID [place] ([place]) Dec 30, 2012 MEDICAI D [id number] HARSHIL AL RISTOP PATIENT Selected Encounter This section includes the information on record at [place] for the Encounter. Date/Time Encounter Type Encounter Description Reason Provider Source September 15, 2024 01:00 PM OFFICE O/P EST LOW 20 MIN PRIMARY CARE/MEDICINE ICD-10-CM M54.12 Radiculopathy, cervical region ELLIE POTTS Encounter Template Text not used by VA Assessments - Encounter Diagnoses This section includes the primary and secondary diagnoses documented for the Encounter. Date/Time Primary/Secondary Diagnosis Diagnosis Name Provider Source September 15, 2024 01:11 PM PRIMARY Radiculopathy, cervical region ELLIE POTTS Plan of Treatment: Future Appointments (+ 6 months) and Future Tests (+/- 45 days) The Plan of Treatment section includes future care activities for the patient from all [place] [facility] This section includes future appointments and future orders which are active, pending or scheduled. Future Appointments This section includes appointments that were scheduled to occur 6 months from the date of the Encounter, up to a maximum of 20 appointments. The data comes from all [place] treatment [facility]. Appointment Date/Time Appointment Type Appointme nt Facility Name September 18, 2024 11:00 AM AMBULATORY - REHAB MEDICIN E [place] September 19, 2024 02:00 PM AMBULATORY - MEDICINE [place] [place] [facility] September 22, 2024 09:00 AM AMBULATORY - REHAB MEDICIN [facility] September 25, 2024 09:00 AM AMBULATORY - REHAB MEDICIN E [place] October 02, 2024 09:00 AM AMBULATORY - REHAB MEDICIN [facility] October 10, 2024 10:00 AM AMBULATORY - REHAB MEDICIN [facility] October 11, 2024 01:00 PM AMBULATORY - PSYCHIATRY [facility] October 13, 2024 08:30 AM AMBULATORY - REHAB MEDICIN E [place] [facility] [place] [facility] Oct 27, 2024 10:00 AM AMBULATORY - REHAB MEDICIN E [place] [facility] [place] [facility] Active, Pending, and Scheduled Orders This section includes a listing of several types of active, pending, and scheduled orders, including clinic medications orders, diagnostic test orders, procedure orders and consult orders; where the start date of the order is 45 days before the date of the Encounter or 45 days after the date of theEncounter. The data comes from all [facility]. Test Date/Time Test Type Test Details Facility Name Aug 10, 2024 09:42 AM Consult Order COMMUNITY CARE-NEUROSURGERY Cons Product Controller's Choice [place] Aug 18, 2024 11:56 AM Consult Order COMMUNITY CARE-DENTAL GENERAL Cons Product Controller's Choice [place] [facility] [place] [facility] Aug 18, 2024 11:56 AM Consult Order COMMUNITY CARE-DENTAL GENERAL Cons Product Controller's Choice [place] [facility] [place] [facility] Aug 18, 2024 11:56 AM Consult Order COMMUNITY CARE-DENTAL SPECIALTY Cons Product Controller's Choice [place] [facility] [place] [facility] Aug 25, 2024 12:12 PM Consult Order TBI SPEECH OUTPT Cons Product Controller's Choice [facility] [place] [facility] Aug 25, 2024 12:26 PM Consult Order COMMUNITY CARE-PAIN MANAGEMENT Cons Product Controller's Choice [facility] [place] [facility] Sep 12, 2024 09:54 AM Consult Order BIOFEEDBAC K FOR PAIN/[facility] (OUTPT) Cons Product Controller's Choice [place] [facility] [facility] Vital Signs: All taken on the encounter date This section contains inpatient and outpatient Vital Signs collected on the date of the Encounter. Date/Time Temperature Pulse Blood Pressure Respiratory Rate SP02 Pain Height Weight Body Mass Index Source September 15, 2024 01:00 PM 97.6 83 158/112 99 266.9 37 [place] Social History: Smoking Status (Most current) and [...] 2024 10:00 AM VA-TOBACCO USE FORMER CIGARETTES [place] Tobacco Use History This section includes a history of the smoking, or tobacco-related health factors, that were collected on or before the date of the Encounter. The data comes from the [place] facility where the Encounter took place. Date/Time Smoking Status/Tobacco Use Comment F acility Jun 26, 2024 10:00 AM VA-TOBACCO USE FOR DEBRA CIGARETTES [place] May 26, 2022 11:30 AM VA-TOBACCO FORMER USER [place] May 26, 2022 11:30 AM VA-TOBACCO QUIT 5 TO < 15 YRS [place] Apr 29, 2021 11:30 AM VA-TOBACCO FORMER USER [place] Apr 29, 2021 11:30 AM VA-TOBACCO QUIT 1 TO < 5 YRS [place] Apr 09, 2020 09:00 AM VA-TOBACCO FORMER USER [place] Apr 09, 2020 09:00 AM VA-TOBACCO QUIT < 1 YEAR [place] Jan 10, 2020 09:30 AM VA-TOBACCO FORMER USER [place] Jan 10, 2020 09:30 AM VA-TOBACCO QUIT < 1 YEAR [place] Aug 08, 2018 01:45 PM VA-TOBACCO USE > 1 5 LESS THAN 30 YEARS [place] Aug 08, 2018 01:45 PM VA-TOBACCO USE ADVICE [place] Aug 08, 2018 01:45 PM 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 Interested in tobacco cessation next visit. [place] Jun 04, 2015 10:22 AM QUIT TOBACCO USE 1 -7 YEARS AGO stopped one month ago [place] May 13, 2015 08:27 AM V1-PT DECLINES REF TO TOBACCO CESS PRGM [place] May 13, 2015 08:27 AM V1-PT THINKING ABO UT QUIT TOBACCO USE [place] Advance Directives: All historical and current Section [...] 2013 ADVANCE DIRECTIVE DISCUSSION BETTE JACKMAN [place] [facility] Encounter Notes: All associated encounter notes This section contains the clinical notes associated to the Encounter. Date/Time Encounter Note(s) Provider Source September 15, 2024 01:01 PM ACCOUNTING OF DISC LOSURES NOTE: LOCAL TITLE: STATE PRESCRIPTION DRUG MONITORING PROGRAM STANDARD TITLE: ACCOUNTING OF DISCLOSURES NOTE DATE OF NOTE: SEPTEMBER 15, 2024@13:01:54 ENTRY DATE: SEPTEMBER 15, 2024@13:01:54 AUTHOR: ELLIE POTTS COSIGNER: URGENCY: STATUS: COMPLETED This PDMP query was submitted by Ellie Potts. The clinical justification for this PDMP query is to review controlled substances prescribed outside of the [place], and any additional information that may become available, as an important component of standard clinical care, and in accordance with [facility] policy. Patient information was shared with the [facility] [place]. No prescription(s) for controlled substances outside the [facility] were found in the last 90 days. /audrey/ ELLIE POTTS PA-C STAFF PHYSICIAN CURTAIN STRETCHER Signed: 09/15/2024 13:02 ELLIE POTTS September 15, 2024 12:58 PM PHYSICIAN ASHLIE T NOTE: LOCAL TITLE: PA NOTE STANDARD TITLE: PHYSICIAN CURTAIN STRETCHER NOTE DATE OF NOTE: SEPTEMBER 15, 2024@12:58 ENTRY DATE: SEPTEMBER 15, 2024@12:58:46 AUTHOR: ELLIE POTTS EXP COSIGNER: URGENCY: STATUS: COMPLETED S - f/u cerv radiculopathy O - CHART: reviewed A/P - 1) Cerv Stenosis Cerv Radiculopathy w/ C5-C6 Disc Herniation - saw Neur-[facility] SEP 08 - Deemed Viable Surg Candidate (surg planned september or november 08) - Rx Oxy in This Pre-op Period Sub-Optimal Pain Relief w/ Use Vicodin 2) PTSD-Related Nightmares - Re-Start Prazosin (worked before) RTC prn post-op Medication Reconciliation: Outpatient: Has the patient been taking medications as documented in the EMLR? YES: The patient has been taking medications as documented in the EMLR. Essential Medication List for Review used to complete this medication reconciliation. INCLUDED IN THIS LIST: Alphabetical list of active outpatient prescriptions dispensed from this [place] (local) and dispensed from another [place] or [...] a VA or non-VA provider. /audrey/ ELLIE POTTS PA-C STAFF PHYSICIAN CURTAIN STRETCHER Signed: 09/15/2024 13:11 ELLIE POTTS
== END 2024-09-20 15:52 | disposition home or self-care (01) ==
LOC: HO.HNS 15:11
PROVIDERS: PCP Family Medicine; Visit Provider Neurological Surgery
DX: M54.12 Radiculopathy, cervical region (principal)
CPT/HCPCS: 99212

== ENCOUNTER → 2024-09-20 15:10 | Outpatient (BNVA) | payer OTHER, SELFPAY | PROVIDERS: PCP Family Medicine; Visit Provider Neurological Surgery | DX: M54.12 Radiculopathy, cervical region (principal) | CPT/HCPCS: 99212 ==

== ENCOUNTER 2024-09-28 05:58 | Day surgery (SDC) | payer OTHER, SELFPAY ==
--- OUTSIDE RECORDS SUMMARY | 2024-09-22 13:56 | XMS_ITS | Continuity of Care Document ---
Author Name [facility] Organization [facility] Care Team Providers Care Project Management Manager Name Role Phone [facility] Unavailable Unavailable Problems Combined list of problems from Department of Defense and Veterans Affairs facilities. It does not include entries that were removed or entered in error. Problem Status Onset Date Problem Type Date of Resolution Comments Source Patient Counseling: Inactive Condition DoD Abnormal blood pressure (SNOMED CT 79542480) [facility] Acute upper respiratory infection (SNOMED CT 48926245) Active [facility] Benign hypertension Active Condition [facility] Cervical radiculopathy Active Condition Aug 10, 2024 [...] Surg SEP 08: Surg Planned NOVEMBER 08 [facility] Chronic post-traumatic stress disorder (SNOMED CT 161624712) Active Condition Jan 05, 2023 Entered By: JULIETTE BOLES Comment: updated. [facility] Ex-tobacco user Active Condition Jan 05, 2023 Entered By: JULIETTE BOLES Comment: updated. [facility] Exposure to potentially hazardous substance ([facility] [id number]) Active Condition Jun 28 Entered By: CONNOR ANDERSON Comment: Entered automatically through [facility] Problem List documentation program [facility] Gastroesophageal reflux disease Active Condition Feb 16, 2017 Entered By: JULIETTE BOLES Comment: diagnosis updated February 16, 2017 [facility] Headache disorder Active Condition No v 2012 Entered By: FRED LIANG Comment: followed by [facility] 02/10/13, MRI 02/24/13 [facility] [place] [facility] Herpes zoster ophthalmicus Active Condition Dec 16, 2017 Entered By: ELLIE BRADSHAW Comment: See My Note Dated JAN 01 [facility] Insomnia, unspecified (ICD-9-CM 780.52) Active Condition [facility] Irritable bowel syndrome Active Condition Feb 14, 2016 Entered By: ELLIE BRADSHAW Comment: Tentative Dx as of JAN 30; CT of ABD done JAN 30 ([facility]?)Feb 14, 2016 Entered By: ELLIE BRADSHAW Comment: Results CT Pending; Has Alternating Constipation & Diarrhea;Feb 14, 2016 Entered By: ELLIE BRADSHAW Comment: Diarrheal Component More Prominent [facility] Lactose intolerance Active Condition [facility] 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.9) Active Condition [facility] Tendinitis Active Condition Aug 23 [...] history of traumatic brain injury Active Diagnosis [facility] [place] [facility] Diagnosis: ICD-10-CM M54.2 Cervicalgia Active Diagnosis [facility] Diagnosis: ICD-10-CM R42 Dizziness and giddiness Active Diagnosis [facility] [place] [facility] Diagnosis: ICD-10-CM M79.18 Myalgia, other site Active [facility] [place] [facility] Diagnosis: ICD-10-CM M47.892 Other spondylosis, cervical region Active Diagnosis [facility] [place] [facility] Diagnosis: ICD-10-CM Z71.89 Other specified counseling Active Diagnosis [facility] [place] [facility] Diagnosis: ICD-10-CM I10 Essential (primary) hypertension Active Diagnosis [facility] Diagnosis: ICD-10-CM F43.12 Post-traumatic stress disorder, chronic Active Diagnosis [facility] Medications Combined list of outpatient medications from Department of Defense and [facility] Affairs facilities.Medications provided include 1) outpatient medications from the last 15 months, and 2) patient-reported medications. Medication Details Route Status Patient Instructions Prescription Expires Prescription Number Last Dispense Date Ordering Provider Order Date Order Qty Source BACLOFEN 10MG TAB TAKE ONE TABLET BY MOUTH THREE TIMES DAILY NEEDED FOR MUSCLE RIGIDITY ORAL DISCONT INUED (EDIT) 08/17/2025 [id number] 5 TRISTEN [facility]FON[facility] 2024 90 [facility] [place] [facility] BACLOFEN 20MG TAB TAKE ONE TABLET BY MOUTH THREE TIMES DAILY NEEDED FOR MUSCLE RIGIDITY ORAL ACTIVE 08/26/2025 [id number] 5 TRISTEN AL[facility] 2024 270 [facility] [place] [facility] CATAPRES (BRAND) 0.1 MG ORAL TAB TAKE ONE TABLET BY MOUTH AT BEDTIME FOR 60 DAYS, AND TAKE ONE TABLET AT BEDTIME NEEDED TO CONTROL BLOOD PRESSURE IF BLOOD PRESSURE ABOVE 140MG. TAKE TWO TABLETS 01/06/2024 [id number] 4 JULIETTE BOLES 2023 120 [facility] CHOLECALCIF TANNER 50MCG (2,000UNIT) TAB TAKE ONE TABLET BY MOUTH ONCE DAILY FOR VITAMIN SUPPLEME NTATION ORAL ACTIVE 11/23/2024 [id number] 5 TRISTEN [facility] 2024 100 [facility] CLONIDINE HCL 0.1MG TAB TAKE ONE TABLET BY MOUTH AT BEDTIME ORAL ACTIVE 08/11/2025 [id number] 5 ANTONIO BRADSHAW 2024 30 [place] CLONIDINE HCL 0.1MG TAB TAKE ONE TABLET BY MOUTH AT BEDTIME ORAL DISCONT INUED 06/14/2025 [id number] 5 Christopher STEEL 2024 30 [place] CLONIDINE HCL 0.1MG TAB TAKE ONE TABLET BY MOUTH AT BEDTIME FOR 60 DAYS, AND TAKE ONE TABLET AT BEDTIME NEEDED TO CONTROL BLOOD PRESSURE IF BLOOD PRESSURE ABOVE 140MG. TAKE TWO TABLETS ORAL 01/06/2024 [id number] 4 ELVIRAAD Davin Jin 2022 120 [place] CYCLOBENZAP RINE HCL 10MG TAB TAKE ONE TABLET BY MOUTH AT BEDTIME FOR MUSCLE SPASM ORAL DISCONT INUED BY PROVIDE R 08/11/2025 [id number] 5 ANTONIO BRADSHAW 2024 14 [place] CYCLOBENZAP RINE HCL 10MG TAB TAKE ONE TABLET BY MOUTH AT BEDTIME FOR MUSCLE SPASM ORAL DISCONT INUED (EDIT) 07/31/2025 [id number] 5 TRISTEN [facility] 2024 90 [facility] GABAPENTIN 100MG CAP TAKE [...] ORAL DISCONT INUED BY PROVIDE R 08/29/2024 [id number] 5 [facility]STEN [facility] 2024 [facility] GABAPENTIN 600MG TAB TAKE ONE TABLET BY MOUTH THREE TIMES A DAY ORAL ACTIVE 08/26/2025 [id number] 5 [facility] 2024 270 [facility] [place] [facility] GABAPENTIN 600MG TAB TAKE ONE-HALF TABLET BY MOUTH TWICE DAILY FOR HEADACHE S AND NERVE PAIN ORAL DISCONT INUED (EDIT) 08/17/2025 [id number] 5 TRISTEN ALFONSO [facility] 2024 90 [facility] [place] [facility] [facility] GABAPENTIN 600MG TAB TAKE ONE-HALF TABLET BY MOUTH TWICE DAILY ORAL DISCONT INUED (EDIT) 07/31/2025 [id number] 5 TRISTEN AL[facility]SO [facility] 2024 90 [facility] [place] [facility] LISINOPRIL 10MG TAB TAKE ONE TABLET BY MOUTH ONCE DAILY TO CONTROL BLOOD PRESSURE ORAL ACTIVE 10/09/2024 [id number] 5 ANTONIO BRADSHAW 2024 60 [place] LISINOPRIL 10MG TAB TAKE ONE TABLET BY MOUTH ONCE DAILY TO CONTROL BLOOD PRESSURE ORAL DISCONT INUED 06/27/2025 [id number] 5 ANTONIO BRADSHAW 2024 30 [place] MELATONIN 3MG CAP/TAB TAKE ONE CAPSULE/ TABLET BY MOUTH AT BEDTIME NEEDED ORAL ACTIVE 06/14/2025 [id number] 5 Christopher [employer]EL 2024 60 [place] MELATONIN 3MG CAP/TAB TAKE ONE CAPSULE/ TABLET BY MOUTH AT BEDTIME FOR INSOMNIA ORAL 01/06/2024 [id number] 4 RAAD BOLES 2022 60 [place] NALOXONE HCL 4MG/SPRAY SOLN,SPRAY, NASAL INSTILL 1 SPRAY ONE NOSTRIL ONE TIME NEEDED FOR OPIOID OVERDOSE CALL 911 WITH ADMINIST RATION. REPEAT WITH SECOND DEVICE IF SYMPTOMS RETURN NASAL 10/12/2023 [id number] 4 RAAD BOLES A 2023 2 [place] Naloxone Hydrochlori de 40 MG/ML [place], Nasal INSTILL 1 SPRAY ONE NOSTRIL ONE TIME NEEDED FOR OPIOID OVERDOSE CALL 911 WITH ADMINIST RATION. REPEAT WITH SECOND DEVICE IF SYMPTOMS RETURN 10/12/2023 [id number] 4 JULIETTE BOLES 2023 2 [facility] Naloxone Hydrochlori de 40 MG/ML [place], Nasal INSTILL 1 SPRAY ONE NOSTRIL ONE TIME NEEDED FOR OPIOID OVERDOSE CALL 911 WITH ADMINIST RATION. REPEAT WITH SECOND DEVICE IF SYMPTOMS RETURN 10/12/2023 [id number] 4 JULIETTE BOLES 2023 2 [facility] NO KNOWN NON-VA MEDS MISCELLANEO US ACTIVE LUCY SCHAFER JR DO 2011 [facility] OXYCODONE HCL 5MG TAB TAKE ONE TABLET BY MOUTH FOUR TIMES A DAY FOR PAIN NEXT FILL 10/13/24* * ORAL ACTIVE 10/15/2024 [id number] 5 ANTONIO BRADSHAW 2024 112 [place] PRAZOSIN HCL 1MG CAP TAKE ONE CAPSULE BY MOUTH BEDTIME NIGHTMAR ES ORAL ACTIVE 09/16/2025 [id number] 5 ANTONIO BRADSHAW 2024 90 [place] Quetiapine (Seroquel Starter Pack) Tablet 25mg Oral TAKE ONE TABLET BY MOUTH AT BEDTIME 01/06/2024 [id number] 4 JULIETTE BOLES 2023 90 [facility] QUETIAPINE FUMARATE 25MG TAB TAKE ONE-HALF TABLET BY MOUTH AT BEDTIME NEEDED MOOD ORAL ACTIVE 06/14/2025 [id number] 5 Christopher STEEL 2024 15 [place] QUETIAPINE FUMARATE 25MG TAB TAKE ONE TABLET BY MOUTH AT BEDTIME ORAL 01/06/2024 [id number] 4 RAAD BOLES 2022 90 [place] RIZATRIPTAN BENZOATE 10MG TAB,ORALLY DISINTEGRAT ING PLACE ONE TABLET ON THE TONGUE DIRECTED (TAKE DIRECTED AT ONSET OF HEADACHE , MAY REPEAT ONE TIME IN 2 HOURS IF NEEDED - ALLOW TABLET TO DISSOLVE ON TONGUE, AND SWALLOW WITH SALIVA) ORAL ACTIVE 08/26/2025 [id number] 5 TRISTEN ALFONSO 2024 27 [facility] sertraline (U/D) 100 MG ORAL TAB TAKE TWO TABLETS BY MOUTH ONCE DAILY 01/06/2024 [id number] 4 JULIETTE BOLES 2023 180 [facility] SERTRALINE HCL 100MG TAB TAKE ONE TABLET BY MOUTH ONCE DAILY ORAL ACTIVE 06/14/2025 [id number] 5 Christopher STEEL 2024 60 [place] SERTRALINE HCL 100MG TAB TAKE TWO TABLETS BY MOUTH ONCE DAILY ORAL 01/06/2024 [id number] 4 RAAD BOLES A 2022 180 [facility] Allergies, Adverse Reactions, Alerts Combined list of allergies from Department of Defense and Veterans Affairs facilities. It does not include entries that were removed or entered in error. Substance Category Reaction Severity Reaction type Status Date Reported Comments Source Ceftazidime Drug allergy (disorder) Eruption of skin active 2 [facility] CEFTAZIDIME Propensity to adverse reactions to drug (finding) Eruption active 2 [facility] CEFTIN Propensity to adverse reactions to drug (finding) Eruption active 2 [facility] Doxycycline Drug allergy (disorder) Urticaria active 6 [facility] DOXYCYCLINE Propensity to adverse reactions to drug (finding) Urticaria active 6 [facility] Immunizations Combined list of available immunizations from the Department of Defense and Veterans Affairs facilities. Immunization Series Date Given Administered By Site Reaction Lot Number CVX Code Drug Police Officer Status Comments Source PNEUMOCOCCAL POLYSACCHARID E PPV23 2019 33 complet ed [facility] IELD FLU VACCINE (HISTORICAL) 2012 88 complet ed Vet refused vaccine [facility] INFLUENZA, UNSPECIFIED FORMULATION 2011 88 complet ed [facility] TDAP 2011 115 complet ed [id number] C exp: 09/05/13 [facility] DTAP, UNSPECIFIED FORMULATION 2009 107 complet ed [place] Jin TD(ADULT) UNSPECIFIED FORMULATION 2008 139 complet ed [facility] [place] [facility] Results Combined list of recent chemistry, hematology and other laboratory results from Department of Defense and Veterans Affairs, ranging from 15 months to all on record, depending upon the facility. Order Name Results Value Reference Range Date Interpretation Specimen Comments Source CALCIUM CALCIUM [MASS/VOLU ME] IN SERUM OR PLASMA 9.5 mg/dL 8.5 - 10.2 08/02 Specimen Type: SERUM No comment entered. Ordering Provider: ELLIE BRADSHAW Report Released Date/Time: Jun 26, 2024 10:28 AM Reporting Lab: [facility] [place] [facility] [address] [address] Performing Lab: [facility] [place] [facility] [address] [address] [place] MICROALB UMIN CREATINI NE RATIO PANEL MICROALBUM IN/CREATIN INE [MASS RATIO] IN URINE 12.8 mg/g 0 - 29.9 08/02 Specimen Type: URINE No comment entered. Ordering Provider: ELLIE BRADSHAW Report Released Date/Time: Jun 26, 2024 10:28 AM Reporting Lab: [facility] [place] [facility] [address] [address] Performing Lab: [facility] [place] [facility] [address] [address] [place] MICROALB UMIN CREATINI NE RATIO PANEL MICROALBUM IN [MASS/VOLU ME] IN URINE 0.5 mg/dL 08/02 Specimen Type: URINE No comment entered. Ordering Provider: ELLIE BRADSHAW Report Released Date/Time: Jun 26, 2024 10:28 AM Reporting Lab: [facility] [place] [facility] [address] [address] Performing Lab: [facility] [place] [facility] [address] [address] [place] MICROALB UMIN CREATINI NE RATIO PANEL CREATININE [MASS/VOLU ME] IN URINE 39.09 mg/dL 08/02 Specimen Type: URINE No comment entered. Ordering Provider: ELLIE BRADSHAW Report Released Date/Time: Jun 26, 2024 10:28 AM Reporting Lab: [facility] [address] [address] Performing Lab: [facility]RL TRN [facility] [address] [address] [place] LIVER FUNCTION PROTEIN [MASS/VOLU ME] IN SERUM OR PLASMA 7.8 g/dL 6.0 - 8.3 08/02 Specimen Type: SERUM No comment entered. Ordering Provider: ELLIE BRADSHAW Report Released Date/Time: Jun 26, 2024 10:28 AM Reporting Lab: [facility]ITALTRN [facility] [address] [address] Performing Lab: [facility]ITALTRN [facility]USE[address] [address] [place] LIVER FUNCTION ALBUMIN [MASS/VOLU ME] IN SERUM OR PLASMA 4.3 g/dL 3.5 - 5.0 08/02 Specimen Type: SERUM No comment entered. Ordering Provider: ELLIE BRADSHAW Report Released Date/Time: Jun 26, 2024 10:28 AM Reporting Lab: [facility]PITALTRN [facility]ITAL[facility] [address] [address] Performing Lab: [facility]RL TRN [facility]ITAL[facility] [address] [address] [place]IVER FUNCTION ALKALINE PHOSPHATAS E [ENZYMATIC ACTIVITY/V OLUME] IN SERUM OR PLASMA 91 U/L 40 - 150 08/02 Specimen Type: SERUM No comment entered. Ordering Provider: ELLIE BRADSHAW Report Released Date/Time: Jun 26, 2024 10:28 AM Reporting Lab: [facility]OSPITALTRN [facility]ITAL[facility] [address] [address] Performing Lab: [facility]ERR[facility]PITALTRN [facility] [address] [place]IVER FUNCTION ASPARTATE AMINOTRANS FERASE [ENZYMATIC ACTIVITY/V OLUME] IN SERUM OR PLASMA 22 U/L 5 - 34 08/02 Specimen Type: SERUM No comment entered. Ordering Provider: ELLIE BRADSHAW Report Released Date/Time: Jun 26, 2024 10:28 AM Reporting Lab: [facility] [address] [address] Performing Lab: [facility] [address] [address] [place] LIVER FUNCTION ALANINE AMINOTRANS FERASE [ENZYMATIC ACTIVITY/V OLUME] IN SERUM OR PLASMA 32 U/L 08/02 Specimen Type: SERUM No comment entered. Ordering Provider: ELLIE BRADSHAW Report Released Date/Time: Jun 26, 2024 10:28 AM Reporting Lab: [facility] [address] [address] Performing Lab: [facility] [address] [address] [place] FUN[place] BILIRUBIN. TOTAL [MASS/VOLU ME] IN SERUM OR PLASMA 0.3 mg/dL 0.2 - 1.2 08/02 Specimen Type: SERUM No comment entered. Ordering Provider: ELLIE BRADSHAW Report Released Date/Time: Jun 26, 2024 10:28 AM Reporting Lab: [facility] [address] [address] Performing Lab: [address] [address] [place] LIPID PANEL FASTING CHOLESTERO L [MASS/VOLU ME] IN SERUM OR PLASMA 218 mg/dL 08/02 H Specimen Type: SERUM No comment entered. Ordering Provider: ELLIE BRADSHAW Report Released Date/Time: Jun 26, 2024 10:28 AM Reporting Lab: [facility] [address] [address] Performing Lab: [address] [address] [place] LIPID PANEL FASTING TRIGLYCERI DE [MASS/VOLU ME] IN SERUM OR PLASMA 430 mg/dL 0 - 150 08/02 H Specimen Type: SERUM No comment entered. Ordering Provider: ELLIE BRADSHAW Report Released Date/Time: Jun 26, 2024 10:28 AM Reporting Lab: [facility] [address] [address] Performing Lab: [facility] [place] [facility] [address] [address] [place] LIPID PANEL FASTING CHOLESTERO L IN LDL [MASS/VOLU ME] IN SERUM OR PLASMA BY CALCULATIO N Reflex to dLDLmg/d L 0 - 129 08/02 Specimen Type: SERUM No comment entered. Ordering Provider: ELLIE BRADSHAW Report Released Date/Time: Jun 26, 2024 10:28 AM Reporting Lab: [facility] [place] [facility] [address] [address] Performing Lab: [facility] [address] [address] [place] LIPID PANEL FASTING CHOLESTERO L.TOTAL/CH OLESTEROL IN HDL [MASS RATIO] IN SERUM OR PLASMA 6.4 08/02 Specimen Type: SERUM No comment entered. Ordering Provider: ELLIE BRADSHAW Report Released Date/Time: Jun 26, 2024 10:28 AM Reporting Lab: [facility] [place] [facility] [address] [address] Performing Lab: [facility] [place] [facility] [address] [address] [facility] LIPID PANEL FASTING CHOLESTERO L IN HDL [MASS/VOLU ME] IN SERUM OR PLASMA 34 mg/dL 40 - 60 08/02 L Specimen Type: SERUM No comment entered. Ordering Provider: ELLIE BRADSHAW Report Released Date/Time: Jun 26, 2024 10:28 AM Reporting Lab: [facility] [place] [facility] [address] [address] Performing Lab: [facility] [place] [facility] [address] [address] [place] LIPID PANEL FASTING CHOLESTERO L IN LDL [MASS/VOLU ME] IN SERUM OR PLASMA BY DIRECT ASSAY 138 mg/dL 08/02 H Specimen Type: SERUM No comment entered. Ordering Provider: ELLIE BRADSHAW Report Released Date/Time: Jun 26, 2024 10:28 AM Reporting Lab: [facility] [place] [facility] [address] [address] Performing Lab: [facility] [place] [facility] [address] [address] [place] URINALYS IS COLOR OF URINE Colorles s 08/02 Specimen Type: URINE Comment: If Glucose = >500 and Ketones are positive, please alert the Physician. Ordering Provider: ELLIE BRADSHAW Report Released Date/Time: Jun 26, 2024 10:28 AM Reporting Lab: [facility] [place] [facility] [address] [address] Performing Lab: [facility]ERRINF[facility]PITALN [facility]ITALUSETS [address] [address] [place] URINALYS IS APPEARANCE OF URINE Clear 08/02 Specimen Type: URINE Comment: If Glucose = >500 and Ketones are positive, please alert the Physician. Ordering Provider: ELLIE BRADSHAW Report Released Date/Time: Jun 26, 2024 10:28 AM Reporting Lab: [facility]TR[facility] [place] [address] [address] Performing Lab: [facility]ITALTRN [place] [address] [address] [place] URINALYS IS GLUCOSE [MASS/VOLU ME] IN URINE Normalmg /dL 08/02 Specimen Type: URINE Comment: If Glucose = >500 and Ketones are positive, please alert the Physician. Ordering Provider: ELLIE BRADSHAW Report Released Date/Time: Jun 26, 2024 10:28 AM Reporting Lab: [facility] [place] [address] [address] Performing Lab: [facility] [place] [address] [address] [place] URINALYS IS KETONES [MASS/VOLU ME] IN URINE BY TEST STRIP NEGATIVE mg/dL 08/02 Specimen Type: URINE Comment: If Glucose = >500 and Ketones are positive, please alert the Physician. Ordering Provider: ELLIE BRADSHAW Report Released Date/Time: Jun 26, 2024 10:28 AM Reporting Lab: [facility]TR[facility] [place] [address] [address] Performing Lab: [address] [address] [place] URINALYS IS ERYTHROCYT ES [PRESENCE] IN URINE SEDIMENT BY LIGHT MICROSCOPY NEGATIVE mg/dL 08/02 Specimen Type: URINE Comment: If Glucose = >500 and Ketones are positive, please alert the Physician. Ordering Provider: ELLIE BRADSHAW Report Released Date/Time: Jun 26, 2024 10:28 AM Reporting Lab: [address] [address] Performing Lab: [address] [address] [place] URINALYS IS PROTEIN [MASS/VOLU ME] IN URINE BY TEST STRIP NEGATIVE mg/dL 08/02 Specimen Type: URINE Comment: If Glucose = >500 and Ketones are positive, please alert the Physician. Ordering Provider: ELLIE BRADSHAW Report Released Date/Time: Jun 26, 2024 10:28 AM Reporting Lab: [address] [address] Performing Lab: [address] [address] [place] URINALYS IS NITRITE [PRESENCE] IN URINE NEGATIVE mg/dL 08/02 Specimen Type: URINE Comment: If Glucose = >500 and Ketones are positive, please alert the Physician. Ordering Provider: ELLIE BRADSHAW Report Released Date/Time: Jun 26, 2024 10:28 AM Reporting Lab: [address] [address] Performing Lab: [address] [address] [place] URINALYS IS BILIRUBIN. TOTAL [PRESENCE] IN URINE NEGATIVE mg/dL 08/02 Specimen Type: URINE Comment: If Glucose = >500 and Ketones are positive, please alert the Physician. Ordering Provider: ELLIE BRADSHAW Report Released Date/Time: Jun 26, 2024 10:28 AM Reporting Lab: [facility] [address] [address] Performing Lab: [address] [address] [place] URINALYS IS SPECIFIC GRAVITY OF URINE BY REFRACTOME TRY 1.009 1.016 - 1.022 08/02 L Specimen Type: URINE Comment: If Glucose = >500 and Ketones are positive, please alert the Physician. Ordering Provider: ELLIE BRADSHAW Report Released Date/Time: Jun 26, 2024 10:28 AM Reporting Lab: [address] [address] Performing Lab: [address] [address] [place] [facility] IS PH OF URINE BY TEST STRIP 6.5 5.0 - 9.0 08/02 Specimen Type: URINE Comment: If Glucose = >500 and Ketones are positive, please alert the Physician. Ordering Provider: ELLIE BRADSHAW Report Released Date/Time: Jun 26, 2024 10:28 AM Reporting Lab: [address] [address] Performing Lab: [address] [address] [place] [facility] IS UROBILINOG EN [MASS/VOLU ME] IN URINE BY TEST STRIP Normalmg /dL <2.0 - 2.0 08/02 Specimen Type: URINE Comment: If Glucose = >500 and Ketones are positive, please alert the Physician. Ordering Provider: ELLIE BRADSHAW Report Released Date/Time: Jun 26, 2024 10:28 AM Reporting Lab: [address] [address] Performing Lab: [address] [address] [place] URINALYS IS LEUKOCYTE ESTERASE [PRESENCE] IN URINE BY TEST STRIP NEGATIVE 08/02 Specimen Type: URINE Comment: If Glucose = >500 and Ketones are positive, please alert the Physician. Ordering Provider: ELLIE BRADSHAW Report Released Date/Time: Jun 26, 2024 10:28 AM Reporting Lab: [facility]OSPITALTRN [facility]ITALUSETS [facility] [address] [address] Performing Lab: [facility]ENTERRL TRN [facility]ITALUSETS [facility] [address] [address] [place] BASIC METABOLI C PANEL (fasting ) UREA NITROGEN [MASS/VOLU ME] IN SERUM OR PLASMA 14 mg/dL 7 - 25 08/02 Specimen Type: SERUM No comment entered. Ordering Provider: ELLIE BRADSHAW Report Released Date/Time: Jun 26, 2024 10:28 AM Reporting Lab: [facility]ERR[facility]IEW HOSPITALTRN [facility] [address] [address] Performing Lab: [facility]ERR[facility] HOSPITALTRN [facility]ITALUSECOH[facility] [address] [address] [place] BASIC METABOLI C PANEL (fasting ) GLUCOSE [MASS/VOLU ME] IN SERUM OR PLASMA 98 mg/dL 65 - 100 08/02 Specimen Type: SERUM No comment entered. Ordering Provider: ELLIE BRADSHAW Report Released Date/Time: Jun 26, 2024 10:28 AM Reporting Lab: [facility]ERR[facility] HOSPITALTRN [facility] [address] [address] Performing Lab: [facility]ERR[facility] HOSPITALTRN [facility]ITALUSECOH[facility] [address] [address] [place] BASIC METABOLI C PANEL (fasting ) SODIUM [MOLES/VOL UME] IN SERUM OR PLASMA 137 mmol/L 135 - 145 08/02 Specimen Type: SERUM No comment entered. Ordering Provider: ELLIE BRADSHAW Report Released Date/Time: Jun 26, 2024 10:28 AM Reporting Lab: [facility]ERR[facility] HOSPITALTRN [facility]ITALUSETS [facility] [address] [address] Performing Lab: [facility]ERR[facility] HOSPITALTRN [facility]ITALUSETS [facility] [address] [address] [place] BASIC METABOLI C PANEL (fasting ) POTASSIUM [MOLES/VOL UME] IN SERUM OR PLASMA 4.6 mmol/L 3.5 - 5.0 08/02 Specimen Type: SERUM No comment entered. Ordering Provider: ELLIE BRADSHAW Report Released Date/Time: Jun 26, 2024 10:28 AM Reporting Lab: [facility]ERR[facility] HOSPITALTRN [facility]ITALUSETS [facility] [address] [address] Performing Lab: [facility]ENTERRINFIRMARY LTAC HOSPITALN [facility]OSPITALUSECOH[facility]IL[facility] [address] [address] [place] BASIC METABOLI C PANEL (fasting ) CHLORIDE [MOLES/VOL UME] IN SERUM OR PLASMA 103 mmol/L 100 - 110 08/02 Specimen Type: SERUM No comment entered. Ordering Provider: ELLIE BRADSHAW Report Released Date/Time: Jun 26, 2024 10:28 AM Reporting Lab: [facility]ERR[facility] HOSPITALTRN [facility] [address] [address] Performing Lab: [facility]ENTERRINFIRMARY LTAC HOSPITALN [facility] [address] [address] [place] BASIC METABOLI C PANEL (fasting ) CARBON DIOXIDE, TOTAL [MOLES/VOL UME] IN SERUM OR PLASMA 26 meq/L 20 - 30 08/02 Specimen Type: SERUM No comment entered. Ordering Provider: ELLIE BRADSHAW Report Released Date/Time: Jun 26, 2024 10:28 AM Reporting Lab: [facility]ERRINFIRMARY LTAC HOSPITALN [facility] [address] [address] Performing Lab: [facility]ENTERRM[facility]IEW HOSPITALTRN [facility]PITALUSECOH[facility] [address] [address] [place] BASIC METABOLI C PANEL (fasting ) CALCIUM [MASS/VOLU ME] IN SERUM OR PLASMA 9.5 mg/dL 8.5 - 10.2 08/02 Specimen Type: SERUM No comment entered. Ordering Provider: ELLIE BRADSHAW Report Released Date/Time: Jun 26, 2024 10:28 AM Reporting Lab: [facility]ENTERRM[facility] HOSPITALTRN [facility]PITALUSECOH[facility] [address] [address] Performing Lab: [facility]ENTERRINFIRMARY LTAC HOSPITALN [facility]OSPITALUSE[address] [address] [place] BASIC METABOLI C PANEL (fasting ) CREATININE [MASS/VOLU ME] IN SERUM OR PLASMA 0.82 mg/dL 0.50 - 1.40 08/02 Specimen Type: SERUM No comment entered. Ordering Provider: ELLIE BRADSHAW Report Released Date/Time: Jun 26, 2024 10:28 AM Reporting Lab: [facility]ITALN [facility] [address] [address] Performing Lab: [facility]ITALN [facility] [address] [address] [place] BASIC METABOLI C PANEL (fasting ) GLOMERULAR FILTRATION RATE/1.73 SQ M.PREDICTE D [VOLUME RATE/AREA] IN SERUM, PLASMA OR BLOOD BY CREATININE -BASED FORMULA (CKD-EPI 2020) >90mL/mi n 60 08/02 Specimen Type: SERUM No comment entered. Ordering Provider: ELLIE BRADSHAW Report Released Date/Time: Jun 26, 2024 10:28 AM Reporting Lab: [facility]ITALN [facility] [address] [address] Performing Lab: [address] [address] [place] URIC ACID URATE [MASS/VOLU ME] IN SERUM OR PLASMA 6.1 mg/dL 3.5 - 7.2 08/02 Specimen Type: SERUM No comment entered. Ordering Provider: ELLIE BRADSHAW Report Released Date/Time: Jun 26, 2024 10:28 AM Reporting Lab: [facility]ITALN [facility] [address] [address] Performing Lab: [address] [address] [place] VITAMIN D (25-OH) 25-HYDROXY VITAMIN D3 [MASS/VOLU ME] IN SERUM OR PLASMA 19 ng/mL 20 - 50 08/02 L Specimen Type: SERUM No comment entered. Ordering Provider: ELLIE BRADSHAW Report Released Date/Time: Jun 26, 2024 10:28 AM Reporting Lab: [facility]ITALN [facility] [address] [address] Performing Lab: [facility] HOS[facility]ITALN [address] [address] [place] HEMOGLOB IN A1C PANEL HEMOGLOBIN [...] Jun 26, 2024 10:28 AM Reporting Lab: [facility]ITALN [place] [facility] [address] [address] Performing Lab: [facility] [address] [address] [employer] PSA PROSTATE SPECIFIC AG [MASS/VOLU ME] IN SERUM OR PLASMA 0.29 ng/mL 0.00 - 4.00 08/02 Specimen Type: SERUM No comment entered. Ordering Provider: ELLIE BRADSHAW Report Released Date/Time: Jun 26, 2024 10:28 AM Reporting Lab: [facility]ITALN [facility] [address] [address] Performing Lab: [facility]N [facility] [address] [address] [facility] Vital Signs Combined list of inpatient and outpatient Vital Signs from Department of Defense and Veterans Affairs, ranging from 12 months to all on record, depending upon the facility. Vital Sign Value Date Comments Source SYSTOLIC BLOOD PRESSURE 158 09/16/19 25 13:00:47 [facility] DIASTOLIC BLOOD PRESSURE 112 025 13:00:47 [facility] PULSE OXIMETRY 99 09/15/2024 13:00:47 [facility] WEIGHT 266.9 09/15/2024 13:00:47 [facility] BMI 37 kg/m2 09/15/2024 13:00:47 [facility] TEMPERATURE 97.6 09/15/2024 13:00:47 [facility] PULSE 83 09/15/2024 13:00:47 [facility] SYSTOLIC BLOOD PRESSURE 142 08/17/19 25 08:38:09 [facility] DIASTOLIC BLOOD PRESSURE 87 025 08:38:09 [facility] PULSE OXIMETRY 97 08/16/2024 08:38:09 [facility] PAIN 8 08/16/2024 08:38:09 [facility] TEMPERATURE 98.3 08/16/2024 08:38:09 [facility] PULSE 78 08/16/2024 08:38:09 [facility] RESPIRATION 16 08/16/2024 08:38:09 [facility] SYSTOLIC BLOOD PRESSURE 126 08/11/19 09:38:58 [facility] DIASTOLIC BLOOD PRESSURE 87 025 09:38:58 [facility] PULSE OXIMETRY 98 08/10/2024 09:38:58 [facility] WEIGHT 270 08/10/2024 09:38:58 [facility] BMI 38 kg/m2 08/10/2024 09:38:58 [facility] PAIN 0 08/10/2024 09:38:58 [facility] HEIGHT 71 08/10/2024 09:38:58 [facility] TEMPERATURE 96.1 08/10/2024 09:38:58 [facility] PULSE 66 08/10/2024 09:38:58 [facility] RESPIRATION 20 08/10/2024 09:38:58 [facility] SYSTOLIC BLOOD PRESSURE 160 06/26/19 25 10:11:47 [facility] DIASTOLIC BLOOD PRESSURE 100 025 10:11:47 [facility] PULSE OXIMETRY 98 06/26/2024 10:11:47 [facility] WEIGHT 274 06/26/2024 10:11:47 [facility] BMI 38 kg/m2 06/26/2024 10:11:47 [facility] TEMPERATURE 97.2 06/26/2024 10:11:47 [facility] PULSE 65 06/26/2024 10:11:47 [facility] RESPIRATION 18 06/26/2024 10:11:47 [facility] SYSTOLIC BLOOD PRESSURE 174 06/13/19 25 16:04:31 [...] to the last 18 months, not all [place] inpatient encounters are included; 2) Encounters from the Department of Defense facilities going backup to 280 months. Location Location Details Encounter Type Encounter Number Reason For Visit Attending Provider ADM Date DC Date Status [facility] [id number] [facility] 08/06 Released w/o Limitations [facility] OUTPATIENT [id number] [facility] 08/06 Released w/o Limitations [facility] OUTPATIENT [id number] JACQUI HUNT 09/03 Released w/o Limitations [facility] Encounter [id number] 03/25 [facility]counter [id number] 03/29 [facility]counter [id number] 03/30 [facility] Encounter [id number] 04/13 [facility] [place] Outpatient Encounter [id number] 04/19 [place] [facility] Encounter [id number] 05/26 [facility]counter [id number] 06/09 [facility] Encounter [id number] 06/16 [facility] En[facility] [id number] 07/13 [facility] [place] Outpatient [facility]counter [id number] 07/18 [place] [facility] Out[facility] Encounter [id number] 11/14 [facility] Encounter [id number] 11/14 [facility] Encounter [id number] 11/18 [facility]counter [id number] 11/22 [facility] Encounter [id number] 01/01 [facility]counter [id number] 01/11 [facility] Encounter [id number] 04/27 [facility]counter [id number] 05/01 [facility] Encounter [id number] 05/24 [facility] Encounter [id number] 06/07 [facility] Out[facility] Encounter [id number] 06/12 [facility] [place] CASE MANAGEMENT [id number] Diagnos is: ICD-10- CM F43.12 Post-tr aumatic stress disorde r, chronic KYLIE MENCHACA 06/13 [place] [facility] Encounter [id number] 06/14 [facility] [place] OFFICE O/P EST MOD 30 MIN [id number] Diagnos is: ICD-10- CM I10 Essenti al (primar y) hyperte nsion LISSETTE BRADSHAW 06/26 [place] [facility] Out[facility] Encounter [id number] 07/10 [facility] [place] Outpatient Encounter [id number] 07/25 [place] [facility] OFFICE O/P NEW [place] 60 MIN [id number] Diagnos is: ICD-10- CM 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 [facility] 07/28 [facility] Out[facility]counter [id number] 07/31 [facility] Out[facility] Encounter [id number] 08/02 [facility] HLTH BHV ASSMT/REAS SESSMENT [id number] Diagnos is: ICD-10- CM 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 LAURENCE RENDON 08/02 [facility] Out[facility] Encounter [id number]/09 [facility] OFFICE O/P EST LOW 20 MIN [id number] Diagnos is: ICD-10- CM M54.12 Radicul opathy, cervica l region YESSICA BRADSHAW HLEEN 08/10 [place] [facility] OFFICE O/P EST HI 40 MIN [id number] Diagnos is: ICD-10- CM M47.892 Other spondyl osis, cervica l region [facility] 08/15 [facility] PH1 ASSMT&MGMT NQHP 21-30 [id number] Diagnos is: ICD-10- CM 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 LAURENCE RENDON 08/15 [facility] Outpatient Encounter [id number] 08/16 [facility] OFFICE O/P EST HI 40 MIN [id number] Diagnos is: ICD-10- CM M79.18 Myalgia , other site [facility] 08/16 [facility] Outpatient Encounter [id number] 08/22 [facility] OFFICE O/P EST HI 40 MIN [id number] Diagnos is: ICD-10- CM M54.12 Radicul opathy, cervica l region [facility] 08/25 [facility] [place] CASE MANAGEMENT [id number] Diagnos is: ICD-10- CM 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 LAURENCE RENDON 09/05 [facility] [place] SELF CARE MNGMENT TRAINING [id number] Diagnos is: ICD-10- CM R42 Dizzine ss and giddine ss INGRID BOSWELL M 09/05 [facility] [place] [facility] [place] PT EVAL MOD COMPLEX 30 MIN [id number] Diagnos is: ICD-10- CM M54.2 Cervica lgia BALWINDER SCHILLING 09/06 [place] [facility] Outpatient Encounter [id number] 09/06 [facility] CASE MANAGEMENT [id number] Diagnos is: ICD-10- CM 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 LAURENCE RENDON 09/11 [facility] Out[facility] Encounter [id number] 09/13 [facility] Outpatient Encounter [id number] 09/14 [facility] [place] [place] OFFICE O/P EST LOW 20 MIN [id number] Diagnos is: ICD-10- CM M54.12 Radicul opathy, cervica l region LISSETTE BRADSHAW 09/15 [place] [facility] Out[facility] Encounter [id number] 09/15 [facility] [place] En[place] [id number] 09/18 [facility] [place] [facility] Out[facility] Encounter [id number] 09/18 [facility] Outpatient Encounter [id number] 09/22 [facility] [place] [facility] Procedures Combined list of: 1) Procedures from Department of Veterans Affairs facilities going back up to thelast 18 months, not all VA non-surgical procedures are included; 2) All procedures from the Department of Defense facilities. Procedure Procedure Type Code Date Perfomer Comments Sourc e MEDICAL NUTRITION THERAPY; GROUP (2 OR MORE INDIVIDUAL(S)), EACH 30 MINUTES 09/20/2003 [facility] MEDICAL NUTRITION THERAPY; GROUP (2 OR MORE INDIVIDUAL(S)), EACH 30 MINUTES 09/18/2003 [facility] MEDICAL NUTRITION THERAPY; GROUP (2 OR MORE INDIVIDUAL(S)), EACH 30 MINUTES 08/09/2003 [facility] MEDICAL NUTRITION THERAPY; GROUP (2 OR MORE INDIVIDUAL(S)), EACH 30 MINUTES 08/07/2003 [facility] INJECTION, KETOROLAC TROMETHAMINE, PER 15 MG 04/24/2003 D oD CRUTCHES, FOREARM, INCLUDES CRUTCHES OF VARIOUS MATERIALS, ADJUSTABLE OR FIXED, PAIR, COMPLETE WITH TIPS AND HANDGRIPS 05/30/2001 [facility] Social History Combined list of available smoking, tobacco, and other social history from Department of Defense and Veterans Affairs facilities. Social History Type Response Date Comment Source Tobacco smoking status DCIS VA-TOBACCO USE DECLINED TO ANSWER OTHER TYPE 09/15/2024 [facility] [place] [facility] History of tobacco use AL-TOBACCO USE SOME DAYS CIGARETTES 09/15/2024 [facility] [place] [facility]2024 [facility] History of tobacco use AL-TOBACCO FORMER USER 05/26/2022 [facility] < 5 YRS 04/29/2021 [facility] History of tobacco use AL-TOBACCO FORMER USER 04/09/2020 [facility] History of tobacco use AL-TOBACCO FORMER USER 01/10/2020 [facility] History of tobacco use AL-TOBACCO USE WI 30 MIN OF WAKEUP 08/08/2018 [facility] History of tobacco use CURRENT SMOKER 08/06/2017 4 day [facility] History of tobacco use CURRENT SMOKER 11/12/2016 cutting back his decreasing on his own [facility] History of tobacco use CURRENT SMOKER 05/08/2016 is cutting back . Interested in tobacco cessation next visit. [facility] History of tobacco use QUIT TOBACCO USE 1-7 YEARS AGO 06/04/2015 stopped one month ago [facility] History of tobacco use V1-PT THINKING ABOUT QUIT TOBACCO USE 05/13/2015 [facility] History of tobacco use CURRENT SMOKER 01/27/2013 [facility] [place] [facility] History of tobacco use CURRENT TOBACCO USER 02/03/2012 [facility] History of tobacco use V1-PT DECLINES TOBACCO CESSATION MEDS 08/24/2011 [facility] [place] [facility] History of tobacco use CURRENT SMOKER 05/19/2011 pack a week [facility] of tobacco use CURRENT SMOKER 05/05/2011 once in a while [facility] This section is an empty social history section. [facility] Plan of Care List of future care activities from Department of Veterans Affairs facilities. Additional future care activities may be listed in the Assessment and Plan section. Date/Time Care Activity Care Activity Detail Facili ty 09/22/2024 AMBULATORY - REHAB MEDICINE AMBULATORY - REHAB MEDICINE [facility] Advance Directives List of completed, amended, or rescinded Advance Directives on record at Department of Veterans [facility] facilities. An actual copy of the Directive is not included. Date Advance Directive Provider Source 03/09/2013 ADVANCE DIRECTIVE DISCUSSION JERAMY JACKMAN [facility]
--- OUTSIDE RECORDS SUMMARY | 2024-09-22 13:56 | XMS_ITS | Clinical Summary ---
Author Organization [facility] Address [address] [place] [address] Care Team Providers Care Draughtsman Name Role Phone Wyatt Potts Primary Care Provider [phone] Allergies Active Allergy Reactions Criticality Noted Date [...] age to complete this topic Care Teams Draughtsman Relationship Specialty Start Date End Date Wyatt Potts PA [address] [place] [address] PCP - General Physician Pegger Dobby Looms 12/21/23
[2024-09-26 10:23] VITALS: BP 132/83; PULSE 75; RESP 20; O2SAT 97; BMI 35.7
--- NOTE | 2024-09-26 10:37 | P.CONAN_ITS ---
HPI - Anesthesia Eval Consult details Narrative: 44yo M for C5-6 Cervical Disc Arthroplasty Hx multiple TBI with deployments No previous GA No recent illness No CP/SOB with actvity very limited to pain. Prior to neck injury (months ago) no limitations in physical activity. PMF Active Problems Active Problems: All Active Problems Cervical radiculopathy (Acute) Past Medical History Medical History (Updated 09/26/24 @ 10:22 by Reyna Stephen RN) Headache Traumatic brain injury with brief (less than 1 hour) loss of consciousness Opioid dependence in remission Lactose intolerance IBS (irritable bowel syndrome) HTN (hypertension) PTSD (post-traumatic stress disorder) Depression GERD (gastroesophageal reflux disease) Family History Family history of problems with anesthesia: No Surgical History Surgical History (Updated 09/26/24 @ 10:21 by Reyna Stephen RN) History of esophagogastroduodenoscopy (EGD) H/O colonoscopy History of Problems with Anesthesia: No Social History Social History Are you a primary director of health care marketing to a significant other at home: No Do you presently have visiting nurse or other home services: No Patient Tobacco Use Status: Former Tobacco user Tobacco use type: Cigarette Years Smoked: 2 Use of substances other than those prescribed or required for medical reasons: Yes Substance Use Type Other:: edibles Substance Use Frequency: Daily Have you been hit, kicked, punched, or otherwise hurt by someone within the past year? If so, by whom?: No Spiritual Healthcare Practices: no Oriental Orthodox Healthcare Practices: no-Yarsani Cultural Healthcare Practices: no Are you DNR?: No Advance Directives: No ( & mother are primary contacts) Advance Directives Information Provided: Yes (as above noted) Advance Directives on File: No Poor oral hygiene: No Meds Allergies Allergy/AdvReac Type Severity Reaction Status Date / Time cefuroxime [From Ceftin] Allergy Severe Rash Verified 09/25/24 10:24 doxycycline Allergy Severe Rash Verified 09/20/24 15:22 Home Medications ?Medication ?Instructions ?Recorded ?Confirmed ?Last Taken ?Type baclofen 20 mg tablet 20 mg PO TID PRN Muscle Spasm 09/26/24 09/26/24 Unknown History cholecalciferol (vitamin D3) 50 50 mcg PO BEDTIME 09/26/24 09/26/24 Unknown History mcg (2,000 unit) capsule (Vitamin D3) clonidine HCl 0.1 mg tablet 0.1 mg PO BEDTIME 09/26/24 09/26/24 Unknown History gabapentin 600 mg tablet 600 mg PO TID 09/26/24 09/26/24 Unknown History hydrocodone 5 mg-acetaminophen 325 1 tab PO TID pain (scale score 09/26/24 09/26/24 Unknown History mg tablet 7-10) melatonin 5 mg tablet 5 mg PO BEDTIME 09/26/24 09/26/24 Unknown History omeprazole 20 mg tablet,delayed 20 mg PO BEDTIME 09/26/24 09/26/24 Unknown History release quetiapine 25 mg tablet 12.5 mg PO BEDTIME 09/26/24 09/26/24 Unknown History sertraline 100 mg tablet 100 mg PO BEDTIME 09/26/24 09/26/24 Unknown History Exam Height,Weight and Vital Signs: Height 6 ft Weight 119.295 kg Last Vital Signs Pulse 75 09/26/24 10:23 Resp 20 09/26/24 10:23 BP 132/83 09/26/24 10:23 Pulse Ox 97 09/26/24 10:23 O2 Del Method Room Air 09/26/24 10:23 Airway Mallampati Class: II TM Dist: >3cm Neck ROM: Limited Loose/Missing/Broken Teeth: Yes (2 x Right side molar missing) Heart: RRR Lungs: CTAB Assessment and Plan Assessment Anesthesia Assessment: Chart Reviewed Final Anesthetic Review Family History of Problems with Anesthesia: No History of Problems with Anesthesia: No
[2024-09-28] VITALS (16 sets, daily range): BP systolic 137–188; BP diastolic 66–115; PULSE 63–89; RESP 9–18; TEMP 36.1–36.7; O2SAT 94–99
--- NOTE | ~2024-09-28 | FL_ITS ---
EXAMINATION: FL GUIDANCE ONLY HISTORY: C5-C6 Cervical Disc Arthroplasty COMPARISON: None available. TECHNIQUE: Fluoroscopy time: 9 seconds. Cumulative Dose: 4.4902 mGy. DAP: 0.6304 mGym2 Images: 2. FINDINGS: Fluoroscopic spot films of the cervical spine the AP projection demonstrate a disc prosthesis. FL/FL guidance in OR IMPRESSION: Fluoroscopy during procedure. Please see procedure report for additional information. Electronically signed by: Dusty Leal MD 09/28/2024 08:59 AM EDT
[2024-09-28] MEDS: Lactated Ringers 1,000 ML 100 ML IVCONT (06:48)
--- NOTE | 2024-09-28 07:03 | HO.ANESPROP2 ---
[facility] Active Problems Active Problems: All Active Problems Cervical radiculopathy (Acute) Past Medical History Medical History Headache Traumatic brain injury with brief (less than 1 hour) loss of consciousness Opioid dependence in remission Lactose intolerance IBS (irritable bowel syndrome) HTN (hypertension) PTSD (post-traumatic stress disorder) Depression GERD (gastroesophageal reflux disease) Functional capacity: independent ambulation Family History Family history of problems with anesthesia: No Surgical History Surgical History History of surgery History of esophagogastroduodenoscopy (EGD) H/O colonoscopy History of Problems with Anesthesia: No Social History Social History Are you a primary nurse healthcare manager to a significant other at home: No Do you presently have visiting nurse or other home services: No Patient Tobacco Use Status: Former Tobacco user Tobacco use type: Cigarette Years Smoked: 2 Use of substances other than those prescribed or required for medical reasons: Yes Substance Use Type Other:: edibles Substance Use Frequency: Daily Have you been hit, kicked, punched, or otherwise hurt by someone within the past year? If so, by whom?: No Spiritual Healthcare Practices: no Jehovah'S Witness Healthcare Practices: no-Caodaism Cultural Healthcare Practices: no Are you DNR?: No Advance Directives: No ( & mother are primary contacts) Advance Directives Information Provided: Yes (as above noted) Advance Directives on File: No Poor oral hygiene: No Travel History History of recent travel: No Recent Travel in [facility] Within the Last 8 Weeks: No Recent Out of Country Travel Within the Last 8 Weeks: No Exposure or Possible Exposure to Illness During Travel: No History of Being in a Healthcare Facility as a Patient, Worker, or Visitor during Travel: No Meds Allergies Allergy/AdvReac Type Severity Reaction Status Date / Time cefuroxime [From Ceftin] Allergy Severe Rash Verified 09/28/24 06:17 doxycycline Allergy Severe Rash Verified 09/28/24 06:17 Active Medications: Current Medications Lactated Ringer's (Lr) 1,000 mls @ 100 mls/hr IVCONT .Q10H MARY LOU Last Admin: 09/28/24 06:48 Dose: 100 mls/hr Home Medications ?Medication ?Instructions ?Recorded ?Confirmed ?Last Taken ?Type baclofen 20 mg tablet 20 mg PO TID PRN Muscle Spasm 09/26/24 09/26/24 Unknown History cholecalciferol (vitamin D3) 50 50 mcg PO BEDTIME 09/26/24 09/26/24 Unknown History mcg (2,000 unit) capsule (Vitamin D3) clonidine HCl 0.1 mg tablet 0.1 mg PO BEDTIME 09/26/24 09/26/24 Unknown History gabapentin 600 mg tablet 600 mg PO TID 09/26/24 09/26/24 Unknown History hydrocodone 5 mg-acetaminophen 325 1 tab PO TID pain (scale score 09/26/24 09/26/24 Unknown History mg tablet 7-10) melatonin 5 mg tablet 5 mg PO BEDTIME 09/26/24 09/26/24 Unknown History omeprazole 20 mg tablet,delayed 20 mg PO BEDTIME 09/26/24 09/26/24 Unknown History release quetiapine 25 mg tablet 12.5 mg PO BEDTIME 09/26/24 09/26/24 Unknown History sertraline 100 mg tablet 100 mg PO BEDTIME 09/26/24 09/26/24 Unknown History Exam Exam Date and Time: 09/28/2024 Height,Weight and Vital Signs: Height 6 ft Weight 119.295 kg Last Vital Signs Temp 98.0 F 09/28/24 06:35 Pulse 63 09/28/24 06:35 Resp 18 09/28/24 06:35 BP 162/108 H 09/28/24 06:35 Pulse Ox 95 09/28/24 06:35 O2 Del Method Room Air 09/28/24 06:35 Airway Mallampati Class: II TM Dist: >3cm Loose/Missing/Broken Teeth: No Heart: rrr Lungs: cta Assessment and Plan Final Anesthetic Review Family History of Problems with Anesthesia: No History of Problems with Anesthesia: No
--- NOTE | 2024-09-28 07:08 | MHC.SHP ---
Pre-Procedural Eval Section A - 24 Hr Update-Section A only Date of Service: 09/28/24 The patient is an INPATIENT: No Changes since office visit: No Cold of Flu in the past 2 weeks, No New Medical Problems, No Changes in Medication and No Patient answered all questions The patient has been examined within 24 hours of the surgical procedure. The History & Physical has been completed within 30 days and I have reviewed it.: No Section B - Complete if H&P > 30 days Chief Complaint: Radiculopathy, cervical region Allergies: Allergies Allergy/AdvReac Type Severity Reaction Status Date / Time cefuroxime [From Ceftin] Allergy Severe Rash Verified 09/28/24 06:17 doxycycline Allergy Severe Rash Verified 09/28/24 06:17 Review of Systems Sugical H&P ROS: Negative: Constitution, Cardiovascular, Respiratory, Neurological, Psychiatric, Hem-Onc, Allergic/Immunologic, Gastrointestinal, Genitourinary, Musculoskeletal, Integumentary, Endocrine and Eyes/Ears/Nose/Throat Exam Surgical H&P Exam: Normal: HEENT, Normal: Heart, Normal: Lungs, Normal: Extremities, Normal: Abdomen, Normal: Skin and Normal: Neurological (awake, alert,oriented x 3 ) Plan Diagnosis/Plan: Unchanged C5-6 total disk arthroplasty Time Spent With Patient Time: Total time managing care of this patient today __5__ minutes.
--- NOTE | 2024-09-28 07:18 | PM.DS ---
DS: Providers Provider Date of Service: 09/28/24 Date of discharge: 09/28/24 Primary care physician: MICHAEL Doyle Admitting clinician: Joby Herrera DS: Diagnosis Discharge Diagnosis (1) Cervical radiculopathy: Status: Acute DS: Summary Time Attestation Discharge Coordination Time (in mins): 5 Quality: Safe Use of Opioids Does Pt have an Active Cancer Diagnosis on the Problem List?: No Quality: Stroke Does the patient have a stroke diagnosis?: No Physical Exam Vital Signs: Vital Signs: Last Vital Signs Temp 98.0 F 09/28/24 06:35 Pulse 63 09/28/24 06:35 Resp 18 09/28/24 06:35 BP 162/108 H 09/28/24 06:35 Pulse Ox 95 09/28/24 06:35 O2 Del Method Room Air 09/28/24 06:35 BMI result Body Mass Index 35.7 Discharge Plan Discharge Patient Disposition: Home, Self-Care Referrals: Wyatt Potts PA [Primary Care Provider] - 1 Week Discharge Medications: New oxycodone 5 mg tablet 5 mg PO Q4H PRN (Reason: pain) Qty: 20 0RF Rx Instructions: Partial Fill upon patient request. Continued quetiapine 25 mg Tablet 12.5 mg PO BEDTIME clonidine HCl 0.1 mg Tablet 0.1 mg PO BEDTIME gabapentin 600 mg Tablet 600 mg PO TID sertraline 100 mg Tablet 100 mg PO BEDTIME baclofen 20 mg Tablet 20 mg PO TID PRN (Reason: Muscle Spasm) cholecalciferol (vitamin D3) [Vitamin D3] 50 mcg (2,000 unit) Capsule 50 mcg PO BEDTIME melatonin 5 mg Tablet 5 mg PO BEDTIME hydrocodone-acetaminophen 5-325 mg tablet 1 tab PO TID Rx Instructions: Partial Fill upon patient request. omeprazole 20 mg Tablet,Delayed Release (Dr/Ec) 20 mg PO BEDTIME Discharge Orders: Discharge Order (Routine); Ordered 09/28/24 Ordered By: Yon Pedersen Diet: Advance to usual diet Activity on Discharge: As tolerated Activity Restrictions/Additional Instructions: After your spinal surgery we ask you to observe the following restrictions/guidelines: Activity: It is normal to feel some discomfort as you increase your activity, but that will improve with time. We ask you avoid heavy lifting or acitivities that cause pain. As a general rule, 8lbs is a safe limit for lifting right after surgery. Walk as much as you feel comfortable but not to exhaustion. You will feel extra tired the first few days after surgery. Stay well hydrated. It is OK to walk up and down stairs You may return to driving when you are off narcotics (such as vicodin, oxycodone, dilaudid, etc), and you are back to normal functional capacity. If you have any concerns please check with office before driving. Return to work is specific to each patient and each surgery, so please speak with your doctor/PA at first follow up. Please bring paperwork such as FMLA at that time if you need it filled out. Medications: For optimum pain control, it is best to start with a combination of 500 mg of Tylenol every 4 hours with 600 mg of Motrin every 8 hours, and use narcotics as needed in between for breakthrough pain. We will give you a short supply of narcotics after surgery (usually one weeks worth). If you need more please call the office but do not use more than prescribed. You will need to give our office 48 hours notice if you need narcotics refilled and we do not fill narcotics on weekends or evenings. If you are on a narcotic, it is a good idea to take a stool softener such as colace or senna to avoid constipation If you take blood thinner such as aspirin, Plavix, Coumadin, Effient, Eliquis etc for conditions such as Afib, DVT, Pulmonary embolus, coronary disease, stents etc please speak with your surgeon about specific details as to when you can resume these medications. You can resume NSAIDs on post op day 1 (eg: Motrin, Naproxen, etc). Follow up: Please call the office, , after surgery to arrange a 3 week follow up for wound check. Wound Care: You may remove your dressing on the first day after surgery. ?You may ?leave open to air. Please do not remove the steri strips underneath. they will fall off on their own in one week. IT IS NORMAL FOR THE WOUND TO OOZE OR BE BLOODY FOR A FEW DAYS AFTER SURGERY. ?IF THIS HAPPENS JUST PLACE NEW DRESSING OVER IT TO AVOID STAINING CLOTHES. You may shower on post op day # 1 We ask that you do not let the water soak the wound. If it does get wet, just towel dry lightly. Please do not scrub your incision or place any type of chemical/ointment on the wound. No tub baths, pools or jacuzzis for one month. If you have any leaking or redness from your wound, or fevers, please call office Print Language: Croatian
[2024-09-28] MEDS: methocarbamoL 750 MG TABLET PO (07:26)
[2024-09-28] MEDS: Gabapentin 300 MG CAPSULE PO (07:26)
[2024-09-28] MEDS: Acetaminophen 1,000 MG/100 ML PIGGYBACK 400 MG IV (07:40)
[2024-09-28] MEDS: ceFAZolin Sodium/Dextrose,Iso 2 GM/50 ML PIGGYBACK IV (07:40)
--- NOTE | 2024-09-28 09:03 | P.OP_ITS ---
Operative Note Operative Note Date of Service: 09/28/24 Narrative: Preoperative Diagnosis: Cervical radiculopathy side due to C5-6 disc herniation Procedure : C5-6 total disc arthropathy Informed Consent was obtained for this operation. I have explained the nature, purpose and benefits of the operation. I have discussed the risks and benefit of the operation including possible complications or adverse events with patient/family. Alternative(s) were discussed with the patient with their relative benefits and risks as well as the consequences of not accepting the operation were included in obtaining consent. Surgeon: GHADA MEAD MD, PHD Procedure Assisted By: josé luis Hilliard Description of Procedure: This patient is suffering from a right cervical radiculopathy due to a C5-6 disc herniation. The patient was offered a total disc arthropathy The procedure co mplications were explained. The patient was consented. The patient was brought to the operating room and endotracheally intubated. The patient was put in supine position with slight extension of the neck. Prep and drape was done followed by timeout. A mid cervical incision was made followed by opening of the platysma. The prevertebral fascia was reached following the natural planes while the physician assistant professor of communication provided manual retraction. The prevertebral fascia was opened to expose the disc space. A spinal needle was placed in the disk space to confirm the correct level with xray. The longus colli muscles were released bilaterally and a self retaining retractor was inserted. Two [place] pins were placed in the C5-C6 vertebral bodies parallel to the endplates and distraction was give over the interspace. The discectomy was completed toward the posterior annulus of the disc. The microscope was brought in. The remainder of the discectomy was completed. The posterior ligament was opened and resected to expose the underlying dura. Bilateral foraminotomies was done and disc material was removed from the right foramen to decompress the C6 nerve root. A trial implant was inserted to determine the correct implant size is. Then an artificial disc of sentinel spine of 17 x 16 and 5 mm height was inserted under fluoroscopic guidance. Final x-rays in AP and lateral projection showed a sat isfactory position of the implant. The physician assistant professor of communication took over. The [place] pin was removed. Hemostasis was done. He closed the incision in 2 layers with a 3-0 Vicryl. Steri-Strips used to approximate incision. An OpSite with Tegaderm was used to cover the incision. All sponge and needle counts were correct. Patient was extubated and transported in stable is to recovery room. Anesthesia: General Estimated Blood Loss (ml): 10 Duration of Surgery: 45 minutes Postoperative Plan: Discharge home Complications: None
[2024-09-28] MEDS: fentaNYL citrate/PF 100 MCG/2 ML VIAL 50 MCG IVPUSH ×2 (09:35→09:50)
[2024-09-28] MEDS: oxyCODONE HCl Immed Release 5 MG TABLET PO (10:09)
[2024-09-28] MEDS: HYDROmorphone HCl 0.5 MG/0.5 ML SYRINGE IVPUSH ×2 (10:15→10:55)
== END 2024-09-28 12:04 | disposition home or self-care (01) ==
PROVIDERS: PCP Physician Assistant Medical; Visit Provider Neurological Surgery
PROC: (CPT 22856; principal; 2024-09-28 07:30)
DX: M50.122 Cervical disc disorder at C5-C6 level with radiculopathy (principal)
CPT/HCPCS: 22856; C1713; J0131; J0690; J1100; J1171; J2003; J2250; J2405; J2704; J3010

== ENCOUNTER → 2024-09-28 05:58 | Outpatient (BNV) | payer OTHER, SELFPAY | PROVIDERS: PCP Physician Assistant Medical; Visit Provider Physician Assistant | DX: M54.12 Radiculopathy, cervical region (principal) | CPT/HCPCS: 22856; 99499 ==

== ENCOUNTER 2024-10-19 15:19 | Outpatient (AMB) | payer OTHER, SELFPAY ==
--- NOTE | 2024-10-19 15:33 | A.SPINEOV_ITS ---
Intake Visit Reasons: 1st post op Intake Note: Mr. Thompson is here today for his 1st post op. Bell Spinner Required: No Allergies cefuroxime [From Ceftin] Allergy (Severe, Verified 09/28/24 06:17) Rash doxycycline Allergy (Severe, Verified 09/28/24 06:17) Rash Assessment & Plan Assessment & Plan (1) Cervical radiculopathy: Code(s): M54.12 - Radiculopathy, cervical region Category: Medical Plan Mr Thompson is here in follow-up, he is 3 weeks out from his C5-6 total disc art hroplasty. He has been doing okay, slowly increasing his activities. He has had almost complete relief of the symptoms down his right arm, but there is a buzzing sensation in his middle finger on the right. He also getting a little bit of pain between his shoulder blades and some swelling back there as well. He is back to swallowing normal and tolerating a diet. He is otherwise coming along nicely. His wound is healing up nicely, his strength is excellent. We discussed activity guidelines, restrictions and expectations after total disc arthroplasty. I would like to see him back in 6 weeks with a set of x-rays. Yon Herrera MD, PhD [facility] Coding Level of Care Code Global (35237) Diagnoses Cervical radiculopathy M54.12
== END 2024-10-19 15:52 | disposition home or self-care (01) ==
LOC: HO.HNS 15:20
PROVIDERS: PCP Physician Assistant Medical; Visit Provider Physician Assistant
DX: M54.12 Radiculopathy, cervical region (principal)
CPT/HCPCS: 99024

== ENCOUNTER → 2024-10-19 15:19 | Outpatient (BNVA) | payer OTHER, SELFPAY | PROVIDERS: PCP Physician Assistant Medical; Visit Provider Physician Assistant | DX: M54.12 Radiculopathy, cervical region (principal) | CPT/HCPCS: 99212 ==

== ENCOUNTER 2024-11-30 10:22 | Outpatient (REF) | payer OTHER, SELFPAY ==
--- NOTE | ~2024-11-30 | XR_ITS ---
EXAMINATION: XR CERVICAL SPINE CLINICAL INFORMATION: M54.12 - Radiculopathy, cervical region COMPARISON: None available. TECHNIQUE: 5 views of the cervical spine were obtained. FINDINGS: There is no prevertebral soft tissue swelling. Prosthetic disc is present at C5-6. There is no subsidence of the hardware. With flexion and extension, there is limited range of motion during flexion. However, there is no sign of instability. XR/XR cervical spine 4V IMPRESSION: C5-6 disc replacement without subsidence. Electronically signed by: Ladarius Lea MD 11/30/2024 02:02 PM EDT
--- OUTSIDE RECORDS SUMMARY | 2024-12-01 10:43 | XMS_ITS | Clinical Summary ---
Author Organization [facility] Address [address] [place] [address] Care Team Providers Care Client Coordinator Name Role Phone Wyatt Potts Primary Care Provider [phone] Allergies Active Allergy Reactions Criticality Noted Date [...] age to complete this topic Care Teams Client Coordinator Relationship Specialty Start Date End Date Wyatt Potts PA [address] [facility] [address] PCP - General Physician Vascular Surgeon 12/21/23
== END 2024-11-30 10:23 | disposition home or self-care (01) ==
LOC: HO.HOSX 10:22
PROVIDERS: Referring Provider Physician Assistant; Visit Provider Physician Assistant
DX: M54.12 Radiculopathy, cervical region (principal); Z98.1 Arthrodesis status
CPT/HCPCS: 72050; 99212

== ENCOUNTER 2024-11-30 11:42 | Outpatient (AMB) | payer OTHER, SELFPAY ==
--- NOTE | 2024-11-30 11:45 | A.SPINEOV_ITS ---
Intake Visit Reasons: 2nd post op with Xrays Intake Note: Mr. Thompson is here today for his 2nd post op with xrays. Furniture Technician Required: No Allergies cefuroxime (From Ceftin) Allergy (Severe, Verified 11/30/24 11:56) Rash doxycycline Allergy (Severe, Verified 11/30/24 11:56) Rash Assessment & Plan Assessment & Plan (1) S/P cervical spinal fusion: Code(s): Z98.1 - Arthrodesis status Category: Medical Plan Procedure: C5-6 total disc arthropathy is a pleasant 44 y/o male who comes in today for his 2nd postop visit after having C5-[address] completed by Dr[address] Herrera on 09/28/24. Thankfully he has continued to do very well since his surgery. He still has some aching between his shoulder blades/posterior neck, but his radicular concerns have essentially completely resolved since his surgery. He reports that he is overall very satisfied with the procedure that he had. He is no longer taking his pain medication, and is able to mitigate his symptoms with the occasional [id number] medications. We reviewed his x-ray imaging during this visit, which shows stable placement of the surgical construct with no changes from fluoroscopy. No new neurological deficits. The patient ambulates well and rises from a seated position without difficulty. His anterior incision site is closed and well healed. There is no need for continued routine follow-up with a , he may follow up with us on an as-needed basis. Artie Herrera MD,PhD [facility] Orders: Orders XR cervical spine 4V Today M54.12 - Radiculopathy, cervical region Coding Level of Care Code Global (84418) Diagnoses S/P cervical spinal fusion Z98.1
--- OUTSIDE RECORDS SUMMARY | 2024-11-30 12:34 | XMS_ITS | Clinical Summary ---
Author Organization [facility] Address [address] [place] [address] Care Team Providers Care Assistant Golf Professional Name Role Phone Wyatt Potts Primary Care Provider [phone] Allergies Active Allergy Reactions Criticality Noted Date [...] 72 03/24/2022 9:27 PM EST Temperature 36.9 C (98.5 F) 03/24/2022 9:27 PM EST Respiratory Rate 16 03/24/2022 9:27 PM EST [...] - Tdap) 09/09/2013 09/10/2003 Influenza Vaccine (#1) 2025 Pneumococcal Vaccine Aged Out No long er eligible based on patient's age to complete this topic RSV Ped < 20 months Aged Out No longe r eligible based on patient's age to complete this topic Care Teams Assistant Golf Professional Relationship Specialty Start Date End Date Wyatt Potts PA [address] [facility] [place] [address] PCP - General Physician Maintenance Mechanic Telephone 12/21/23
--- OUTSIDE RECORDS SUMMARY | 2024-11-30 12:34 | XMS_ITS ---
Author Name [facility] Organization Unknown Encounters Encounter Type Encounter Reason Primary Diagnosis Location Date Emergency Shoulder Pain Shoulder Pain [facility] Care Team Organization Name Specialty Phone Email Start Date End Da te [facility] [address] [facility] 202311/28/2024 [facility] 12/21/2023
== END 2024-11-30 13:09 | disposition home or self-care (01) ==
LOC: HO.HNS 11:42
PROVIDERS: PCP Physician Assistant Medical; Visit Provider Physician Assistant
DX: Z98.1 Arthrodesis status (principal)
CPT/HCPCS: 99024

== ENCOUNTER → 2024-11-30 11:47 | Outpatient (BNV) | payer OTHER, SELFPAY | PROVIDERS: Visit Provider Radiology Diagnostic Radiology | DX: M54.12 Radiculopathy, cervical region (principal) | CPT/HCPCS: 72050 ==